=== PATIENT | female | born 1940 | race Caucasian/White ===

== ENCOUNTER 2023-08-12 12:58 | Inpatient (IN) | payer OTHER, SELFPAY ==
[2023-08-12] VITALS (9 sets, daily range): BP systolic 90–148; BP diastolic 52–75; BMI 31.0; BMI 29.8
--- NOTE | 2023-08-12 10:08 | ED.GENMED ---
History of Present Illness
<Toshia Conte MD - Last Filed: 08/12/23 10:09>
General
Chief Complaint: Weakness
Time Seen by Provider: 08/12/23 09:34
Travel History
Have you had any contact with someone who has COVID-19?: Unable to Answer
Do you have any symptoms of coronavirus? Fever > 100 degrees, chills, cough, shortness of breath, sore throat, loss of taste or smell, muscle aches, or headache?: Unable to Answer
<Neisha Cuello PA-C - Last Filed: 08/12/23 17:15>
General
Source: patient and ambulance crew
Exam Limitations: dementia
Nursing documentation reviewed up to this point in time: agreed with
History of Present Illness
History of Present Illness:
pt is a 83 y/o F with h/o alzheimers oriented to persona nd sometimes place at baseline, HTN, HLD, NIDDM, neuropathy
here via ems - but unclear who called and why
pt apparently lives with her who also has dementia; they ahve a patch driller who comes during the day to help. i spoke with her this morning after pt arrived via ems but they were unsure who called 911 and what for. the patient apparently was
in a chair and itw as called in as a lift assist but when they got there, neither the patient nor the could expalin why they were called or what happened and the patient seemed weak so they transported.
ems apparently called the grandson who then called the braulio's daughter who is traveling back from [place] currently. she then called the caregiver to go over to be with the . When I called the patient's 's line with the caregiver
answered and she was able to tell me that when she got there the was asking where his was and had no recollection of what happened today. It is unclear if maybe the patient fell. Previously she had been on Eliquis for DVT but when the
caregiver read me the list of medication she was no longer on that. She also was not on metformin or metoprolol which she has been on in the past. The caregiver says that the patient does not like to take her medications as it is.
Yesterday when the caregiver was with her patient was complaining that both of her feet hurt and was not really walking as usual. She has not had any known change in mental status, fever, vomiting. Patient is not aware of why she is here today but
is aware she is in the hospital. She has no complaints at the moment.
med list:
gabapentin 300 mg bid
donepezil hcl 10 mg hs
sertraline hcl 50 mg am
simvastatin 40 mg hs
Past History
<Toshia Conte MD - Last Filed: 08/12/23 10:09>
Past History
ED Past Medical History: Cancer, Hypercholesterolemia and NIDDM
ED Past Surgical History: Appendectomy, Gynecological (Hysterectomy), Orthopedic and Other (Whipple)
Social History
Living: longterm
<Neisha Cuello PA-C - Last Filed: 08/12/23 17:15>
Social History
Living: with family
<Neisha Cuello PA-C - Last Filed: 08/12/23 17:15>
Review of Systems
Allergies reviewed?: Yes
Unable to obtain full review of systems at this time due to: dementia
<Neisha Cuello PA-C - Last Filed: 08/12/23 17:15>
Physical Exam
Physical Exam:
GENERAL: Alert , in no apparent distress
head:b no intjuries
EYE: pupils equal and reactive , pale conjucntiva
NECK: Supple
ENT: o/p clr, mmm.
CARDIAC: irregularly irregular, afib with RVR; mild pitting symmetric edema b/l LE
LUNGS: Clear breath sounds bilaterally, no acute respiratory distress, no wheezes/rales/rhonchi
ABDOMEN: Soft, without focal tenderness, no r/g, no cvat, normal bowel sounds
NEUROLOGICAL: Alert and oriented x 2, no focal neuro deficits, seems generally weak, cannot pull herself up
SKIN: Warm and dry, skin intact.
MUSCULOSKELETAL: No edema, well perfused. neg luis daniel's sign
PSYCH: Normal and appropriate interaction.
Course
<Toshia Conet MD - Last Filed: 08/12/23 10:09>
Orders/Labs/Results
Orders:
Orders
08/12/23 09:57
EKG [Electrocardiogram (*1)] Urgent
Reason for Study: Chest Pain
EKG- Treatment ONCE
08/12/23 10:06
CT Head W/o Iv Contrast Urgent
Comment:
Reason For Exam: confusion, afib
08/12/23 10:07
CR Chest - 2 Views Urgent
Comment:
Reason For Exam: afib
08/12/23 10:24
Type+Screen Urgent
COVID-19 Antigen Urgent
Source: Nasal Swab
CPK [Creatine Phosphokinase] Urgent
Complete Blood Count/With Diff Urgent
Comprehensive Metabolic Panel Urgent
Magnesium Urgent
PTT Urgent
Prothrombin Time Urgent
TSH Reflex To Free T4 Urgent
Troponin I Urgent
Influenza A+B Rapid Molecular Urgent
SINDHU Source: Nasal Swab
Specimen Description:
08/12/23 11:29
Heparin 4,000 units IV NOW STA
08/12/23 11:30
Heparin 53165 Units/250 ml 25,000 units in 250 ml IV PER PROTOCOL
Weight to be used for heparin protocol in kilograms (kg):: 79.4
Protocol:: Cardiac Tx/Acute Coronary
PTT Goal Range to be used:: PTT 73 to 111 seconds
Order type:: Initial
INITIAL Infusion Dose (UNITS/KG/hr) & then follow protocol:: 12 units/kg/hr
Infusion Dose in UNITS/hr & then follow protocol (UNITS/hr):: 950
INFUSION RATE in mL/hr & then follow protocol (mL/hr):: 9.5
PTT less than or equal to 64 seconds:: Increase rate by 200 units/hr (+ 2 mL/hr)
PTT 64.1 to 72.9 seconds:: Increase rate by 100 units/hr (+ 1 mL/hr)
PTT 73 to 111 seconds:: Target Range. No change in rate.
PTT 111.1 to 130.9 seconds:: Decrease rate by 100 units/hr (- 1 mL/hr)
PTT 131 to 199.9 seconds:: HOLD for 1 hr. Then decrease rate by 200 units/hr (- 2 mL/hr)
PTT greater than or equal to 200 seconds:: HOLD for 2 hrs & Notify Provider. Then decrease by 200 units/hr (-
2 mL/hr)
Lab follow-up:: Each change, PTT q6h until 2 consecutive are therapeutic. Then PTT
daily.
08/12/23 11:31
CT Chest Pe Study Urgent
Comment:
Reason For Exam: new onset afib with rvr, + trop, h/o dvt
08/12/23 11:53
Urinalysis Reflex To Culture Urgent
Date Specimen was Collected: 08/12/23
Time Specimen was Collected: 10:38
Urine Microscopic Reflex Cult Urgent
Urine Culture Urgent
SINDHU Source: U
Specimen Description:
Date Specimen was Collected: 08/12/23
Time Specimen was Collected: 10:38
08/12/23 12:30
Admit/Transfer Patient As Directed
Co-Sign Provider:
Level of Care: Inpatient admission
Assign to:: Telemetry
Physician / Group: Leonard
Diagnosis: A-fib, Elevated Trop
Reason for Telemetry: Arrhythmia
Date to Stop Telemetry: 08/15/23
Time to Stop Telemetry: 11:00
Reason for Hospitalization: cardiology consult, a-fib management, elevated trop
Expected length of stay greater than two midnights?: Yes
ELOS- Estimated Length of Stay in days: 3
I certify the patient meets the requirements for IP care: Yes
08/12/23 12:42
Code Status As Directed
Resuscitation Status: Do not resuscitate
Reached after discussion with pt or family/Healthcare POA: Yes
DNR Bracelet Application ONCE
08/12/23 Dinner
2000 calorie (17 carb) Diabetic
At Your Request: Limited Participation
Diabetic Diet: Sodium, 2 Gram
08/12/23 15:32
Acetaminophen [Tylenol] 650 mg PO Q4HPRN PRN
Dextrose 50%-Water [Dextrose 50% Syringe] 12.5 grams IV [id number] PRN
Glucagon [GlucaGen] 1 mg IM PRN PRN
08/12/23 15:32
Echo 2D MMode Color/Doppler Routine
Reason for Study: afib
Cardiology Consult: George Orta
CARDIOLOGY CONSULT Routine
Consulting Provider: George Orta
Was physician already notified: Yes
Activity As Directed
Activity Level: Out of Bed- Chair
Bedside Glucose Monitoring As Directed
Frequency: AC&HS
Comment: Change to q6h if pt on TPN, tube feeding or not eating
I&O [Intake/ Output] As Directed
Frequency: q12h
Vital Signs As Directed
Frequency: Per unit guidelines
Weight As Directed
Frequency: Daily
Ot Eval And Treat Routine
Pt Eval And Treat Routine
Activity Level: Out of Bed-Early Mobility
08/12/23 16:30
Insulin Aspart Corrective Low [Novolog Flexpen-Low Resistance] See Protocol SC AC
08/12/23 20:00
Gabapentin [Neurontin] 300 mg PO BID
08/12/23 22:00
Donepezil HCl [Aricept] 10 mg PO HS
08/13/23 06:00
Basic Metabolic Panel IN AM
Complete Blood Count/No Diff IN AM
Creatine Phosphokinase IN AM
Glycohemoglobin (HgbA1c) IN AM
Magnesium IN AM
08/13/23 08:00
Pantoprazole [Protonix] 40 mg PO DAILY
Sertraline HCl [Zoloft] 100 mg PO DAILY
08/13/23 12:00
Ferrous Sulfate [Feosol] 325 mg PO NOON
08/15/23 11:00
DC Protocol for Telemetry ONCE
Abnormal Lab Results
08/12/23 08/12/23
10: 11:53
WBC 15.1 H 10^3/uL
(4.8-10.8)
RBC 4.13 L 10^6/uL
(4.20-5.40)
Hgb 11.1 L g/dL
(12.0-16.0)
Hct 34.2 L %
(37.0-47.0)
MCH 26.9 L pg
(27.0-31.0)
MCHC 32.5 L g/dL
(33.0-37.0)
Abs Immat Gran (auto) 0.1 H 10^3/uL
(0-0.05)
Absolute Neuts (auto) 13.3 H 10^3/uL
(1.4-6.5)
Absolute Lymphs (auto) 0.9 L 10^3/uL
(1.2-3.4)
Absolute Monos (auto) 0.7 H 10^3/uL
(0.1-0.6)
Immature Gran % 0.6 H %
(0-0.5)
Neutrophils % 88.4 H %
(42.2-75.2)
Lymphocytes % 5.9 L %
(20.5-51.1)
PT 15.5 H Sec
(11.4-14.6)
APTT 35.2 H Sec
(23.4-35.0)
Sodium 131 L mmol/L
(135-145)
BUN 31 H mg/dl
(7-17)
Creatinine 1.2 H mg/dL
(0.6-1.0)
Glucose 149 H mg/dl
(70-99)
AST 61 H U/L
(14-36)
Creatine Kinase 2282 H U/L
(30-135)
Troponin I 3.350 H* ng/ml
Urine Ketones Trace A
(Negative)
Ur Occult Blood Reflex 2+ A
(Negative)
Leukocyte Esterase Rfl 1+ A
(Negative)
Urine WBC (Reflex) 30-40 A /HPF
(0-5)
Urine Bacteria (Reflex) Many A
(Negative)
08/12/23 10:24
08/12/23 10:24
Vital Signs
Initial and Last Documented VS:
Initial Vital Signs
Temp Pulse Resp BP Pulse Ox
98.0 F 105 18 90/73 97
08/12/23 09:36 08/12/23 09:36 08/12/23 09:36 08/12/23 09:36 08/12/23 09:36
Last Documented Vital Signs
Temp Pulse Resp BP Pulse Ox
97.9 F 72 18 119/56 96
08/12/23 15:56 08/12/23 15:56 08/12/23 15:56 08/12/23 15:56 08/12/23 15:56
Kellylt;Neisha Cuello PA-C - Last Filed: 08/12/23 17:15>
Orders/Labs/Results
Orders:
Orders
08/12/23 09:57
EKG [Electrocardiogram (*1)] Urgent
Reason for Study: Chest Pain
EKG- Treatment ONCE
08/12/23 10:06
CT Head W/o Iv Contrast Urgent
Comment:
Reason For Exam: confusion, afib
08/12/23 10:07
CR Chest - 2 Views Urgent
Comment:
Reason For Exam: afib
08/12/23 10:24
Type+Screen Urgent
COVID-19 Antigen Urgent
Source: Nasal Swab
CPK [Creatine Phosphokinase] Urgent
Complete Blood Count/With Diff Urgent
Comprehensive Metabolic Panel Urgent
Magnesium Urgent
PTT Urgent
Prothrombin Time Urgent
TSH Reflex To Free T4 Urgent
Troponin I Urgent
Influenza A+B Rapid Molecular Urgent
SINDHU Source: Nasal Swab
Specimen Description:
08/12/23 11:29
Heparin 4,000 units IV NOW STA
08/12/23 11:30
Heparin 53844 Units/250 ml 25,000 units in 250 ml IV PER PROTOCOL
Weight to be used for heparin protocol in kilograms (kg):: 79.4
Protocol:: Cardiac Tx/Acute Coronary
PTT Goal Range to be used:: PTT 73 to 111 seconds
Order type:: Initial
INITIAL Infusion Dose (UNITS/KG/hr) & then follow protocol:: 12 units/kg/hr
Infusion Dose in UNITS/hr & then follow protocol (UNITS/hr):: 950
INFUSION RATE in mL/hr & then follow protocol (mL/hr):: 9.5
PTT less than or equal to 64 seconds:: Increase rate by 200 units/hr (+ 2 mL/hr)
PTT 64.1 to 72.9 seconds:: Increase rate by 100 units/hr (+ 1 mL/hr)
PTT 73 to 111 seconds:: Target Range. No change in rate.
PTT 111.1 to 130.9 seconds:: Decrease rate by 100 units/hr (- 1 mL/hr)
PTT 131 to 199.9 seconds:: HOLD for 1 hr. Then decrease rate by 200 units/hr (- 2 mL/hr)
PTT greater than or equal to 200 seconds:: HOLD for 2 hrs & Notify Provider. Then decrease by 200 units/hr (-
2 mL/hr)
Lab follow-up:: Each change, PTT q6h until 2 consecutive are therapeutic. Then PTT
daily.
08/12/23 11:31
CT Chest Pe Study Urgent
Comment:
Reason For Exam: new onset afib with rvr, + trop, h/o dvt
08/12/23 11:53
Urinalysis Reflex To Culture Urgent
Date Specimen was Collected: 08/12/23
Time Specimen was Collected: 10:38
Urine Microscopic Reflex Cult Urgent
Urine Culture Urgent
SINDHU Source: U
Specimen Description:
Date Specimen was Collected: 08/12/23
Time Specimen was Collected: 10:38
08/12/23 12:30
Admit/Transfer Patient As Directed
Co-Sign Provider:
Level of Care: Inpatient admission
Assign to:: Telemetry
Physician / Group: Leonard
Diagnosis: A-fib, Elevated Trop
Reason for Telemetry: Arrhythmia
Date to Stop Telemetry: 08/15/23
Time to Stop Telemetry: 11:00
Reason for Hospitalization: cardiology consult, a-fib management, elevated trop
Expected length of stay greater than two midnights?: Yes
ELOS- Estimated Length of Stay in days: 3
I certify the patient meets the requirements for IP care: Yes
08/12/23 12:42
Code Status As Directed
Resuscitation Status: Do not resuscitate
Reached after discussion with pt or family/Healthcare POA: Yes
DNR Bracelet Application ONCE
08/12/23 Dinner
2000 calorie (17 carb) Diabetic
At Your Request: Limited Participation
Diabetic Diet: Sodium, 2 Gram
08/12/23 15:32
Acetaminophen [Tylenol] 650 mg PO Q4HPRN PRN
Dextrose 50%-Water [Dextrose 50% Syringe] 12.5 grams IV [id number] PRN
Glucagon [GlucaGen] 1 mg IM PRN PRN
08/12/23 15:32
Echo 2D MMode Color/Doppler Routine
Reason for Study: afib
Cardiology Consult: George Orta
CARDIOLOGY CONSULT Routine
Consulting Provider: George Orta
Was physician already notified: Yes
Activity As Directed
Activity Level: Out of Bed- Chair
Bedside Glucose Monitoring As Directed
Frequency: AC&HS
Comment: Change to q6h if pt on TPN, tube feeding or not eating
I&O [Intake/ Output] As Directed
Frequency: q12h
Vital Signs As Directed
Frequency: Per unit guidelines
Weight As Directed
Frequency: Daily
Ot Eval And Treat Routine
Pt Eval And Treat Routine
Activity Level: Out of Bed-Early Mobility
08/12/23 16:30
Insulin Aspart Corrective Low [Novolog Flexpen-Low Resistance] See Protocol SC AC
08/12/23 20:00
Gabapentin [Neurontin] 300 mg PO BID
08/12/23 22:00
Donepezil HCl [Aricept] 10 mg PO HS
08/13/23 06:00
Basic Metabolic Panel IN AM
Complete Blood Count/No Diff IN AM
Creatine Phosphokinase IN AM
Glycohemoglobin (HgbA1c) IN AM
Magnesium IN AM
08/13/23 08:00
Pantoprazole [Protonix] 40 mg PO DAILY
Sertraline HCl [Zoloft] 100 mg PO DAILY
08/13/23 12:00
Ferrous Sulfate [Feosol] 325 mg PO NOON
08/15/23 11:00
DC Protocol for Telemetry ONCE
Abnormal Lab Results
08/12/23 08/12/23
10:24 11:53
WBC 15.1 H 10^3/uL
(4.8-10.8)
RBC 4.13 L 10^6/uL
(4.20-5.40)
Hgb 11.1 L g/dL
(12.0-16.0)
Hct 34.2 L %
(37.0-47.0)
MCH 26.9 L pg
(27.0-31.0)
MCHC 32.5 L g/dL
(33.0-37.0)
Abs Immat Gran (auto) 0.1 H 10^3/uL
(0-0.05)
Absolute Neuts (auto) 13.3 H 10^3/uL
(1.4-6.5)
Absolute Lymphs (auto) 0.9 L 10^3/uL
(1.2-3.4)
Absolute Monos (auto) 0.7 H 10^3/uL
(0.1-0.6)
Immature Gran % 0.6 H %
(0-0.5)
Neutrophils % 88.4 H %
(42.2-75.2)
Lymphocytes % 5.9 L %
(20.5-51.1)
PT 15.5 H Sec
(11.4-14.6)
APTT 35.2 H Sec
(23.4-35.0)
Sodium 131 L mmol/L
(135-145)
BUN 31 H mg/dl
(7-17)
Creatinine 1.2 H mg/dL
(0.6-1.0)
Glucose 149 H mg/dl
(70-99)
AST 61 H U/L
(14-36)
Creatine Kinase 2282 H U/L
(30-135)
Troponin I 3.350 H* ng/ml
Urine Ketones Trace A
(Negative)
Ur Occult Blood Reflex 2+ A
(Negative)
Leukocyte Esterase Rfl 1+ A
(Negative)
Urine WBC (Reflex) 30-40 A /HPF
(0-5)
Urine Bacteria (Reflex) Many A
(Negative)
08/12/23 10:24
08/12/23 10:24
Vital Signs
Initial and Last Documented VS:
Initial Vital Signs
Temp Pulse Resp BP Pulse Ox
98.0 F 105 18 90/73 97
08/12/23 09:36 08/12/23 09:36 08/12/23 09:36 08/12/23 09:36 08/12/23 09:36
Last Documented Vital Signs
Temp Pulse Resp BP Pulse Ox
97.9 F 72 18 119/56 96
08/12/23 15:56 08/12/23 15:56 08/12/23 15:56 08/12/23 15:56 08/12/23 15:56
<Neisha Cuello PA-C - Last Filed: 08/12/23 17:15>
MDM/Problems Addressed
Differential Diagnosis Includes:
uti, pneumonia, afib with RVR, weakness;
MDM/Problems Addressed:
83 y/o F from home, h/o alzheimers, former dvt was anticoagulated unclear when she came off; lives with who has dementia; no one knows who called 911 or why; pt was found awake and at her baseline in a chair and was maybe thought by ems to
be lift assist but she was generally weak so they brought her; found to be in afib with rvr with rate low 100s, bp 100s, awake and alert, no distress, lungs clear, mild edema in legs but no crackles; ekg nonischemic but trop is 3, she has no pain;
given her h/o dvt will CT PE which did not show PE; heparinize for ACS
pt's daughter was contacted and made aware of dx
she also confirmed pt is DNR.
<Neisha Cuello PA-C - Last Filed: 08/12/23 17:15>
*Critical Care Note
Total Time (30-74mins, 75-104mins- exclusive of procedures): Not Applicable
ED Attending Note
<Toshia Conte MD - Last Filed: 08/12/23 10:09>
ED Attending Note
Patient seen and examined by attending physician: Yes
I performed the substantive portion of visit, reviewed & personally made and approve the management plan that is documented in note by myself or SERINA.: Yes
ED Attending Note:
Patient arrives nontoxic-appearing and comfortable. Her head appears atraumatic. Her heart sounds irregular. Lungs are clear. I cannot see any prior history of A-fib. Patient would likely be anticoagulated and admitted for new onset A-fib.
Before starting anticoagulation, we will check her coags, hemoglobin and scan her head given she had a recent fall. Patient's pelvis and hips are nontender.
-
Portions of this chart may have been created with voice recognition software.� Occasional wrong word or��sound alike� substitutions may have occurred due to the inherent limitations of voice recognition software.
Discharge Plan
Departure
Patient Disposition: Admit
Date of Disposition: 08/12/23
Time of Disposition: 11:30
Admit to: Telemetry
Presentation/result/management discussed w/ accepting MD/DO: Hospitalist
Condition: Fair
Covid-19: Not Applicable
Discharge Problem:
Non-ST elevation [place] (NSTEMI), Atrial fibrillation with rapid ventricular response
Interventions
Interventions:
*Risk Screen - Suicide Last Done: 08/12/23 12:38
*General Assessment Last Done: 08/12/23 12:38
*Neglect/Abuse Screening Last Done: 08/12/23 12:38
ED- Fall Risk Assessment Last Done: 08/12/23 12:38
*ED COVID-19 Vaccine History Last Done: 08/12/23 12:38
*Nursing Disposition Last Done: 08/12/23 15:29
ED- Cardiac Assessment Last Done: 08/12/23 14:00
ED- Neurological Assessment Last Done: 08/12/23 12:38
ED- Pulmonary Assessment Last Done: 08/12/23 12:38
Discharge Date and Time
Discharge Date/Time: 08/12/23 15:00
[2023-08-12 10:38] LABS: % Basophils 0.2 % (0-2); % Immature Granulocytes 0.6 % (0-0.5); % Lymphocytes 5.9 % (20.5-51.1); % Monocytes 4.9 % (1.7-9.3); % Neutrophils 88.4 % (42.2-75.2); Absolute Immature Granulocytes 0.1 10^3/uL (0-0.05); Absolute Lymphocytes 0.9 10^3/uL (1.2-3.4); Absolute Monocytes 0.7 10^3/uL (0.1-0.6); Absolute Neutrophils 13.3 10^3/uL (1.4-6.5); Hematocrit 34.2 % (37.0-47.0); Hemoglobin 11.1 g/dL (12.0-16.0); Mean Corp Hgb Conc. 32.5 g/dL (33.0-37.0); Mean Corpuscular Hgb 26.9 pg (27.0-31.0); Mean Corpuscular Volume 82.8 fL (81.0-99.0); Mean Platelet Volume 9.5 fL (7.4-10.4); Nucleated Red Blood Cells % 0 %; Platelet Count 271 10^3/uL (130-400); Red Blood Cell Count 4.13 10^6/uL (4.20-5.40); Red Cell Dist. Width 14.4 % (11.5-14.5); White Blood Cell Count 15.1 10^3/uL (4.8-10.8)
[2023-08-12 10:49] LABS: INR 1.25; PT 15.5 Sec (11.4-14.6)
[2023-08-12 10:50] LABS: APTT 35.2 Sec (23.4-35.0)
[2023-08-12 10:52] LABS: ALT (SGPT) 11 U/L (0-35); AST (SGOT) 61 U/L (14-36); Albumin 3.5 g/dl (3.5-5.0); Alkaline Phosphatase 97 U/L (38-126); Blood Urea Nitrogen 31 mg/dl (7-17); COVID-19 Antigen Negative (Negative); Calcium 8.6 mg/dl (8.4-10.2); Carbon Dioxide 22 mmol/L (22-30); Chloride 103 mmol/L (98-107); Estimated Creatinine Clearance 37 ml/min; Glucose 149 mg/dl (70-99); Magnesium 1.6 mg/dl (1.6-2.3); Potassium 4.5 mmol/L (3.5-5.1); Sodium 131 mmol/L (135-145); Total Bilirubin 1.1 mg/dl (0.2-1.3); Total Protein 6.3 g/dl (6.3-8.2); eGFR 45.48
[2023-08-12 11:01] LABS: Creatine Phosphokinase 2282 U/L (30-135)
[2023-08-12 11:21] LABS: TSH Reflex To Free T4 2.01 uIU/ml (0.47-4.68)
--- NOTE | 2023-08-12 12:19 | PHANOTE ---
med rec note- called [facility] due to patient not answering question properly. saw in ecw on 08/02/23 that [facility] called patient pcp to discuss current medication list, [facility] does prepack everything for all there patient,
[2023-08-12 12:41] LABS: Urine Albumin Trace (Neg - Trace); Urine Bilirubin Negative (Negative); Urine Character Clear (Clear); Urine Color Yellow; Urine Glucose Negative (Negative); Urine Ketone Trace (Negative); Urine Leukocyte 1+ (Negative); Urine Nitrite Negative (Negative); Urine Occult Blood 2+ (Negative); Urine Urobilinogen Negative (Neg - 1+)
--- NOTE | 2023-08-12 12:47 | HPS.HSE ---
Addendum entered and electronically signed by Shanice Valle MD 08/12/23 14:59:
I saw and examined the patient.
The WOLF HUNTER's note was reviewed and I agree with the note.
Comment:
Ms. Veronica Logan is a 83 yo woman with hx DM, CKD, dementia who was brought to the ER for weakness; remaining story unclear. Patient is a poor historian given dementia. Triage vitals signficiant for P 105, BP 90/73, EKG showing afib with RVR.
Labs with WBC 15.1, Hg 11.1, PLT 271, Na 131, K+ 4.5, BUN 31, Cr 1.2 (baseline), CK 2282, Trop 3.350.
On exam patient is in on distress, tachycardic, resp status stable. She denies chest pain.
Afib with RVR new diagnosis likely causing weakness, elevated Trop. She is on eliquis outpatient for DVT, heparin gtt started for now while trending Troponin. TTE to be obtained. IVF overnight and hold statin with elevated CK.
Original Note:
Family Physician
-
Family Physician: NO INTERVIEW UNKNOWN
Chief Complaint
-
Weakness
History of Present Illness
Patient is a 83-year-old female past medical history of diabetes, CKD and dementia who was brought to the emergency department via EMS for weakness. It is unclear who called 911, and EMS is unaware of the reason for the 911 call. EMS found patient
in her chair was noted be generally weak with mildly low blood pressure, and atrial fibrillation on heart monitor. Due to patient's dementia she is unable to provide any reliable history, but denies any complaints at the present time.
Medical History
Past Medical History
Past Medical History: Reports Other
Additional Past Medical History:
Essential Hypertension
Diabetes Mellitus, Type II
Diabetic Neuropathy
CKD Stage III
Depression
Alzheimer's Dementia
GERD
DVT
Past Surgical History: Reports Other
Additional Past Surgical History:
Appendectomy
Hysterectomy
Cholecystectomy
Whipple Procedure
Bilateral Knee Replacements
Social History
Tobacco: Non-smoker
Living: With Family
Family History
Family History: Unable to Obtain
Allergies / Home Medications
Allergies reflects when Allergies were last updated in [employer].
Home Medications with original date entered in [employer]
Allergy/Medication List:
Allergies
Allergy/AdvReac Type Severity Reaction Status Date / Time
codeine Allergy nausea and Verified 06/16/21 10:56
vomiting/DIARRHEA
diphenhydramine Allergy shakes and Verified 06/16/21 10:56
tremors/SWEATING
Home Medications
hydrochlorothiazide 12.5 mg tablet 12.5 mg PO DAILY Blood pressure 06/16/21
sertraline 100 mg tablet 100 mg PO DAILY Depression 06/16/21
simvastatin 40 mg tablet 40 mg PO QPM High cholesterol 06/16/21
ferrous sulfate 325 mg (65 mg iron) tablet (FeroSul) 325 mg PO NOON Supplement #30 tabs 06/21/21
metoprolol succinate 25 mg tablet,extended release 24 hr 12.5 mg PO DAILY ##30 06/21/21
pantoprazole 40 mg tablet,delayed release 40 mg PO DAILY #30 tabs 06/21/21
apixaban 5 mg tablet (Eliquis) 5 mg PO BID 08/12/23
donepezil 10 mg tablet 10 mg PO HS 08/12/23
gabapentin 300 mg capsule 300 mg PO BID Pain 08/12/23
Review of Systems
-
Unable to obtain full review of systems at this time due to: Dementia
Physical Exam
Vital Signs
Vital Signs
Temp Pulse Resp BP Pulse Ox
98.0 F 111 16 106/52 98
08/12/23 09:36 08/12/23 12:30 08/12/23 12:30 08/12/23 12:08 08/12/23 12:38
Physical Exam
General: Comfortable and Conversant
HEENT: Anicteric and Moist mucous membranes
Respiratory: Rales (Right base, but otherwise clear) and Non Labored Respirations
Cardiac: S1/S2, Irregular Rhythm and Tachycardia (Slightly)
GI: Soft and Non Tender
Rectal: Deferred by Provider
Musculoskeletal: No Clubbing, No Cyanosis and No Edema
Skin: Warm and Dry
Neuro: Awake, Alert, Oriented (Self only) and Nonfocal/grossly intact (Generally weak)
Laboratory Results
-
08/12/23 10:24
08/12/23 10:24
Laboratory Results
PT 15.5 Sec (11.4-14.6) H 08/12/23 10:24
INR 1.25 08/12/23 10:24
APTT 35.2 Sec (23.4-35.0) H 08/12/23 10:24
Total Bilirubin 1.1 mg/dl (0.2-1.3) 08/12/23 10:24
AST 61 U/L (14-36) H 08/12/23 10:24
ALT 11 U/L (0-35) 08/12/23 10:24
Alkaline Phosphatase 97 U/L (38-126) 08/12/23 10:24
Troponin I 3.350 ng/ml H* 08/12/23 10:24
Data Reviewed
-
Lab Data: Labs Reviewed by me
Impression/Plan
-
Atrial Fibrillation, appears to be new diagnosis for the patient
-Consult cardiology
-Increase Metoprolol 25mg BID with first dose now
-Continue heparin drip
Elevated Troponin, suspect Non-Ischemic Myocardial Injury
-Consult Cardiology
-Continue to trend
-Check Echocardiogram
Rhabdomyolysis
-Continue IV fluids
-Continue to trend CPK level
-Hold simvastatin
Essential Hypertension
-Stop HCTZ
-Monitor BP closely while on increased dose of Metoprolol
Diabetes Mellitus, Type II
-Check HgbA1c
-Monitor sugars and continue coverage insulin
Diabetic Neuropathy
-Continue gabapentin
CKD Stage III
-Monitor creatinine closely
Depression
-Continue sertraline
Alzheimer's Dementia
-Continue donepezil
-Monitor for mood/behavior changes during hospitalization
GERD
-Continue Protonix
DVT proph: Heparin Drip
Code Status: DNR
[2023-08-12 12:52] LABS: Urine Bacteria Many (Negative); Urine Red Blood Cell 0-2 /HPF (0-2); Urine White Cell 30-40 /HPF (0-5)
[2023-08-12 12:53] LABS: Urine Squamous Cell 0-2 /LPF (Few)
[2023-08-12] MEDS: TOPROL XL 25 MG PO ×2 (14:00→20:07)
[2023-08-12] MEDS: HEPARIN 4000 UNITS IV (14:01)
--- NOTE | 2023-08-12 14:17 | CON.CAR ---
Addendum entered and electronically signed by George Orta MD 08/12/23 15:07:
Correction: dates below should read 08/12/23 instead of 08/11/22.
Original Note:
Consultation
Consultation Request
Date/Time Consultation Requested: 08/11/22, 1240 pm
Date/Time Consultation Performed: 08/11/22, 1pm
Requesting Provider: Leonard
Performing Provider: You
Reason for Consultation: new A fib
Medical History
-
Chief Complaint: weakness
History of Present Illness:
83 yo female with PMH of HTN, hyperlipidemia, DM, DVT on eliquis, Alzheimer's admitted with weakness.
We are consulted for new A fib with RVR, and elevated troponin.
Patient offers no complaints. She does appear to have advanced dementia.
Past Medical History
Past Medical History: HTN, Hypercholesterolemia, NIDDM and Valvular Disease (mild , mild MS)
Past Surgical History: Appendectomy, Cholecystectomy and Gynecological (hysterectomy)
Social History
Tobacco: Non-Smoker
Family History
Family History: Early CAD (none)
Allergies / Home Medications
Allergy/AdvReac Type Severity Reaction Status Date / Time
codeine Allergy nausea and Verified 06/16/21 10:56
vomiting/DIARRHEA
diphenhydramine Allergy shakes and Verified 06/16/21 10:56
tremors/SWEATING
Medication Instructions Recorded Confirmed Type
hydrochlorothiazide 12.5 mg tablet 12.5 mg PO DAILY Blood pressure 06/16/21 08/12/23 History
sertraline 100 mg tablet 100 mg PO DAILY Depression 06/16/21 08/12/23 History
simvastatin 40 mg tablet 40 mg PO QPM High cholesterol 06/16/21 08/12/23 History
ferrous sulfate 325 mg (65 mg 325 mg PO NOON Supplement #30 tabs 06/21/21 08/12/23 Rx
iron) tablet (FeroSul)
metoprolol succinate 25 mg 12.5 mg PO DAILY ##30 06/21/21 08/12/23 Rx
tablet,extended release 24 hr
pantoprazole 40 mg tablet,delayed 40 mg PO DAILY #30 tabs 06/21/21 08/12/23 Rx
release
apixaban 5 mg tablet (Eliquis) 5 mg PO BID 08/12/23 08/12/23 History
donepezil 10 mg tablet 10 mg PO HS 08/12/23 08/12/23 History
gabapentin 300 mg capsule 300 mg PO BID Pain 08/12/23 08/12/23 History
Review of Systems
-
History Source: Patient and Transfer Record
All other systems: Negative unless noted
Physical Exam
Vital Signs
Temp Pulse Resp BP Pulse Ox
98.0 F 78 16 112/63 98
08/12/23 09:36 08/12/23 14:00 08/12/23 12:30 08/12/23 14:00 08/12/23 12:38
Lab Results
08/12/23 10:24
08/12/23 10:24
Troponin I 3.350 ng/ml H* 08/12/23 10:24
Physical Exam
General: Well Developed, Well Nourished and No Apparent Distress
HEENT: Normocephalic and Anicteric
Respiratory: Clear, Wheezes (none) and Non Labored Respirations
Cardiac: S1/S2 (normal), Irregular Rhythm, Murmur (II/ systolic at RUSB) and Peripheral Edema (none)
Breast: Deferred by me
GI: Soft and Non Tender
Rectal: Deferred by Provider
Musculoskeletal: No Clubbing, No Cyanosis and No Edema
Skin: Warm and Dry
Neuro: Awake
Psych: Calm
Impression / Plan
-
83 yo female with PMH of HTN, hyperlipidemia, DM, DVT on eliquis, Alzheimer's admitted with weakness.
We are consulted for new A fib with RVR, and elevated troponin.
# New Afib with RVR
-rates mildly elevated: increase Toprol XL to 25mg bid
-CHADS2-VASC = 5. She is on eliquis 5mg bid as outpatient for DVT.
-currently on heparin drip while investigating etiology for her presentation. transition back to eliquis before discharge.
# Elevated troponin
-no CP or ST changes on EKG
-currently 3.35: trend to peak
-does not appear to be ACS: Type II [place] vs acute non-ischemic myocardial injury in setting of A fib with RVR
-echo this admission
#HTN
-monitor with increased Toprol XL
-takes HCTZ 12.5mg at home as well
#Hyperlipidemia
-in setting of DM
-cont statin
Data Reviewed
-
EKG: Tracing Personally Visualized and interpreted (A fib 118, no ST changes) and Discussed with Physician
Medical Tests (Nuc Med, Echo etc): Report Reviewed by me (echo 05/2021: EF 65-70%, mild , mild MS, nl RV) and Discussed with Physician
Labs: Labs Reviewed by me and Discussed with Physician
Old Records: Reviewed
[2023-08-12] MEDS: NSS 1000 IV (15:58)
[2023-08-12] MEDS: HEPARIN 25000 UNITS/250 ML IV (15:59)
[2023-08-12 16:22] LABS: Glucose - Point of Care 134 mg/dl (70-99)
[2023-08-12] MEDS: NOVOLOG FLEXPEN-LOW RESISTANCE SC (16:51)
[2023-08-12] MEDS: MAGNESIUM SULFATE 100 IV (20:06)
[2023-08-12] MEDS: NEURONTIN 300 MG PO (20:07)
[2023-08-12] MEDS: ARICEPT 10 MG PO (21:15)
[2023-08-12] MEDS: DESENEX/MITRAZOL/ZEASORB 1 APPLIC TOPICAL (21:37)
[2023-08-12 21:41] LABS: Glucose - Point of Care 111 mg/dl (70-99)
[2023-08-12 22:36] LABS: APTT 52.1 Sec (23.4-35.0)
--- NOTE | 2023-08-12 22:47 | PTCARENOTE ---
Patient trop went up from 5.890 to 6.910. Denies chest pain or SOB. Vitals are 148/63 BP, HR 74, Temp98.2, resp 20, pulse ox 95% room air. Patient ordered another trop to be drawn at 0230. On dawit ENDOSCOPY SPECIALTY TECHNICIAN made aware with no new orders at this time.
[2023-08-13] VITALS (7 sets, daily range): BP systolic 94–119; BP diastolic 44–56; PULSE 63; BMI 28.6
[2023-08-13 05:34] LABS: Hematocrit 30.8 % (37.0-47.0); Hemoglobin 9.6 g/dL (12.0-16.0); Mean Corp Hgb Conc. 31.2 g/dL (33.0-37.0); Mean Corpuscular Hgb 26.5 pg (27.0-31.0); Mean Corpuscular Volume 85.1 fL (81.0-99.0); Mean Platelet Volume 9.7 fL (7.4-10.4); Platelet Count 282 10^3/uL (130-400); Red Blood Cell Count 3.62 10^6/uL (4.20-5.40); Red Cell Dist. Width 14.6 % (11.5-14.5); White Blood Cell Count 20.8 10^3/uL (4.8-10.8)
[2023-08-13 05:45] LABS: APTT 49.2 Sec (23.4-35.0)
[2023-08-13 06:18] LABS: Blood Urea Nitrogen 35 mg/dl (7-17); Calcium 8.4 mg/dl (8.4-10.2); Carbon Dioxide 16 mmol/L (22-30); Chloride 103 mmol/L (98-107); Creatine Phosphokinase 845 U/L (30-135); Estimated Creatinine Clearance 31 ml/min; Glucose 133 mg/dl (70-99); Potassium 4.4 mmol/L (3.5-5.1); Sodium 131 mmol/L (135-145)
[2023-08-13 08:15] LABS: Glucose - Point of Care 134 mg/dl (70-99)
[2023-08-13] MEDS: NEURONTIN 300 MG PO ×2 (08:41→19:48)
[2023-08-13] MEDS: NOVOLOG FLEXPEN-LOW RESISTANCE SC (08:41)
[2023-08-13] MEDS: ZOLOFT 100 MG PO (08:41)
[2023-08-13 08:42] LABS: Glycohemoglobin (HgbA1c) 7.4 % (4.0-5.6)
[2023-08-13] MEDS: PROTONIX 40 MG PO (08:42)
[2023-08-13] MEDS: TOPROL XL 25 MG PO ×2 (08:42→19:48)
[2023-08-13] MEDS: DESENEX/MITRAZOL/ZEASORB 1 APPLIC TOPICAL ×2 (08:42→19:48)
--- NOTE | 2023-08-13 10:05 | PTOTSP ---
ST Screening
Pt admitted for altered mental status. Pt with known hx of dementia and currently AAOx1. Admitted for afib. Pt with hx of GERD. Pt with CT Head with no acute process and CT Chest did not indicate any signs of PNA. Pt passed swallow screening and
denied any hx of swallowing concerns. Pt has remained afebrile; however, WBC increasing to 20,800 today. Of note, pt with multiple metabolic derangements including Na 131, BUN 35, creatinine 1.4, as well as abnormal urine and elevated troponin. No
acute concerns/needs for [facility] services identified at this time. Please consult if anything changes.
[2023-08-13 11:30] LABS: APTT 72.7 Sec (23.4-35.0)
--- NOTE | 2023-08-13 11:32 | W.PN.HOSP.TC ---
Addendum entered and electronically signed by Shanice Valle MD 08/13/23 14:17:
WBC up
UA with inflammation
will start IV Ceftriaxone while following up final culture
Original Note:
Today's Communication/Plan
-
heparin gtt
start asa
TTE tomorrow
Assessment / Plan
Assessment / Plan
Ms. Veronica Logan is a 83 yo woman with hx DM, CKD, dementia who was brought to the ER for weakness; remaining story unclear.� Patient is a poor historian given dementia.� Triage vitals signficiant for P 105, BP 90/73, EKG showing afib with RVR.�
Labs with WBC 15.1, Hg 11.1, PLT 271, Na 131, K+ 4.5, BUN 31, Cr 1.2 (baseline), CK 2282, Trop 3.350.�
Atrial Fibrillation, appears to be new diagnosis for the patient
-appreciate cardiology consult
-admitted to telemetry
-converted to sinus rhythm
-Increase Metoprolol 25mg BID with first dose now (on 12.5 at home)
-Continue heparin drip
-MHEFa2xyik score = 5
Elevated Troponin, suspect Non-Ischemic Myocardial Injury
-peaked at 6.9 - unclear if new ACS versus non-SD trop elevation related to RVR
-Check Echocardiogram
-appreciate cardiology
-heparin gtt
-asa
Hx DVT
-patient is on Eliquis BID at home for DVT; held while on IV heparin gtt
-per ER note - patient no longer taking eliquis although it is on her med list
Rhabdomyolysis
-CK better, stop fluids
-Hold simvastatin
Essential Hypertension
-Stop HCTZ
-Monitor BP closely while on increased dose of Metoprolol
Diabetes Mellitus, Type II
-Check HgbA1c
-Monitor sugars and continue coverage insulin
Diabetic Neuropathy
-Continue gabapentin
CKD Stage III
-Monitor creatinine closely
Depression
-Continue sertraline
Alzheimer's Dementia
-Continue donepezil
-Monitor for mood/behavior changes during hospitalization
GERD
-Continue Protonix
DVT proph: Heparin Drip
Code Status: DNR
Anticipated Discharge: 24 - 48 hours
Subjective/Interval History
-
Date of Service: August 13, 2023
denies chest pain or dizziness
Objective Data
-
Labs:
Laboratory Results
08/13/23 08/13/23 08/13/23
05:12 05:13 11:07
WBC 20.8 H
Hgb 9.6 L
Hct 30.8 L
Plt Count 282
APTT 49.2 H Pending
Sodium 131 L
Potassium 4.4
Chloride 103
Carbon Dioxide 16 L
BUN 35 H
Creatinine 1.4 H
Glucose 133 H
Calcium 8.4
Vital Signs:
Vital Signs
Temp Pulse Resp BP Pulse Ox
98.6 F 67 16 104/52 96
08/13/23 07:38 08/13/23 07:38 08/13/23 07:38 08/13/23 07:38 08/13/23 07:38
I&O
08/12/23 08/13/23 08/14/23
06:59 06:59 06:59
Intake Total 1158 / 1158
Balance 1158 / 1158
Review of Systems
-
History Source: Patient
All other systems: Reviewed and negative
Physical Exam
-
General: No Apparent Distress and Appears Chronically Ill
HEENT: PERRLA
Respiratory: Clear to Auscultation; Negative Wheezes
Cardiac: Regular Rhythm and S1/S2
GI: Soft and Nontender
Musculoskeletal: No Edema
Skin: Warm and Dry; Negative Rash
Neuro: Awake and Alert
Psych: Apparent Dementia
Data Reviewed
-
Diagnostic Radiology: Report Reviewed by me
Labs: Labs Reviewed by me
--- NOTE | 2023-08-13 11:40 | W.PN.CD ---
Today's Communication / Plan
-
back in sinus
continue Toprol XL 25mg bid
echo tomorrow
Impression / Plan
-
83 yo female with PMH of HTN, hyperlipidemia, DM, DVT on eliquis, Alzheimer's admitted with weakness.
We are consulted for new A fib with RVR, and elevated troponin.
# New Afib with RVR: paroxysmal, and back in NSR today
-increased Toprol XL to 25mg bid this admission
-CHADS2-VASC = 5. She is on eliquis 5mg bid as outpatient for DVT.
-currently on heparin drip while investigating etiology for her presentation. transition back to eliquis before discharge.
# Elevated troponin
-no CP or ST changes on EKG
-peak 6.9
-does not appear to be ACS: Type II [place] vs acute non-ischemic myocardial injury in setting of A fib with RVR
-echo tomorrow
# Heart murmur
-echo in AM
#HTN
-monitor with increased Toprol XL
-takes HCTZ 12.5mg at home as well: currently held with rising Cr
#Hyperlipidemia
-in setting of DM
-cont statin
Physical Exam
Vital Signs/Labs
Vital Signs
Temp Pulse Resp BP Pulse Ox
98.6 F 67 16 104/52 96
08/13/23 07:38 08/13/23 07:38 08/13/23 07:38 08/13/23 07:38 08/13/23 07:38
08/12/23 08/13/23 08/14/23
06:59 06:59 06:59
Actual Weight 73.255 kg
08/13/23 05:13
08/13/23 05:12
PT 15.5 Sec (11.4-14.6) H 08/12/23 10:24
INR 1.25 08/12/23 10:24
APTT 72.7 Sec (23.4-35.0) H 08/13/23 11:07
Magnesium 2.0 mg/dl (1.6-2.3) 08/13/23 05:12
LAB Results
08/12/23 08/12/23 08/12/23
10:24 14:07 22:03
Troponin I 3.350 H* 5.890 H* D 6.910 H*
08/13/23
05:13
Troponin I 4.710 H* D
Physical Exam
Constitutional: Comfortable
EENT: Moist mucous membranes
Cardiovascular: Rhythm & rate is regular, Pedal edema is absent, JVD pressure is normal and Systolic murmur present
Respiratory: Respiratory effort normal and Lungs clear to auscul.
GI: Soft and Distention absent
Data Reviewed
-
Date of Service: August 13, 2023
EKG: Other (Tele: NSR 70s)
Labs: Labs Reviewed by me
[2023-08-13 11:47] LABS: Glucose - Point of Care 180 mg/dl (70-99)
[2023-08-13] MEDS: NOVOLOG FLEXPEN-LOW RESISTANCE 1 UNITS SC ×2 (13:16→17:27)
[2023-08-13] MEDS: LOW STRENGTH ASPIRIN 81 MG PO (13:19)
[2023-08-13] MEDS: FEOSOL 325 MG PO (13:19)
[2023-08-13] MEDS: NSS IV (13:35)
[2023-08-13] MEDS: HEPARIN 25000 UNITS/250 ML IV (14:48)
--- NOTE | 2023-08-13 15:03 | CM ---
Spoke with daughter Clare Craig, she is currently in town to visit parents.
Dad and mom both with some dementia, so it is best to speak with her. (need to verify her phone number tomorrow, CM reached her on patients husbands number).
Clare will be in the hospital to see her mother tomorrow.
Clare is looking into possible alternate living arrangements, specifically [facility].
[employer] is one of the hired private caregivers.
Patient has private caregivers 7 days a week 4 hours per day.
Mom hides her medications and throws them away.
Patient has cane and RW that she uses at home.
Lives in a bilevel home with 10 stepts to enter and 5, landing then 5 more steps.
Per daughter patient is able to manage at home after the care givers leave.
PT recommending home with home care, OT recommending skilled rehab, daughter would prefer home with [facility].
Referral to [facility].
Per Clare her mother does have insurance with [employer] medicare, she will bring in card/numbers tomorrow.
Primary care physician Dr Odell
Pharmacy: [facility]
Plan: home with [facility]
[2023-08-13 16:17] LABS: Glucose - Point of Care 193 mg/dl (70-99)
[2023-08-13] MEDS: ROCEPHIN 1000 MG IV (17:26)
[2023-08-13] MEDS: STERILE WATER FOR INJECTION 10 ML IV (17:27)
[2023-08-13 18:13] LABS: APTT 70.5 Sec (23.4-35.0)
[2023-08-13] MEDS: ARICEPT 10 MG PO (21:01)
[2023-08-13 21:50] LABS: Glucose - Point of Care 312 mg/dl (70-99)
[2023-08-14 00:42] LABS: APTT 96.4 Sec (23.4-35.0)
[2023-08-14 03:40] VITALS: BP 94/58
[2023-08-14 06:00] VITALS: BMI 28.8
[2023-08-14] MEDS: HEPARIN 25000 UNITS/250 ML IV ×2 (06:28→22:51)
[2023-08-14 07:18] LABS: Hematocrit 27.7 % (37.0-47.0); Mean Corp Hgb Conc. 32.5 g/dL (33.0-37.0); Mean Corpuscular Hgb 26.9 pg (27.0-31.0); Mean Corpuscular Volume 82.9 fL (81.0-99.0); Mean Platelet Volume 9.8 fL (7.4-10.4); Platelet Count 271 10^3/uL (130-400); Red Blood Cell Count 3.34 10^6/uL (4.20-5.40); Red Cell Dist. Width 14.3 % (11.5-14.5); White Blood Cell Count 10.3 10^3/uL (4.8-10.8)
[2023-08-14 07:30] VITALS: BP 93/60
[2023-08-14 07:44] LABS: Glucose - Point of Care 161 mg/dl (70-99)
[2023-08-14 07:49] LABS: Blood Urea Nitrogen 53 mg/dl (7-17); Calcium 8.5 mg/dl (8.4-10.2); Carbon Dioxide 21 mmol/L (22-30); Chloride 98 mmol/L (98-107); Estimated Creatinine Clearance 25 ml/min; Glucose 150 mg/dl (70-99); Magnesium 1.9 mg/dl (1.6-2.3); Potassium 3.7 mmol/L (3.5-5.1); Sodium 127 mmol/L (135-145); eGFR 29.94
--- NOTE | 2023-08-14 09:03 | W.PN.CD ---
Today's Communication / Plan
-
-Paroxysmal Afib; patient briefly converted to sinus rhythm, but now is in atrial fibrillation again with mildly elevated heart rates.
-Will increase Toprol-XL to 50 mg twice daily.
-Will undergo echocardiogram today.
-JARON: Etiology unclear, worsening; not on any diuretic.
Impression / Plan
-
83 yo female with PMH of HTN, hyperlipidemia, DM, DVT on eliquis, Alzheimer's admitted with weakness.
We are consulted for new A fib with RVR, and elevated troponin.
# New Afib with RVR:
-Paroxysmal Afib; patient briefly converted to sinus rhythm, but now is in atrial fibrillation again with mildly elevated heart rates.
-Will increase Toprol-XL to 50 mg twice daily.
-CHADS2-VASC = 5. She is on eliquis 5mg bid as outpatient for DVT.
-currently on heparin drip while investigating etiology for her presentation; transition back to eliquis before discharge.
# Elevated troponin
-Etiology remains unclear; possibly secondary to acute nonischemic myocardial injury in the setting of infection and A-fib with RVR.
-Will undergo echocardiogram today.
-no CP or ST changes on EKG
-peak 6.9
# Heart murmur
-echo today
#HTN
-monitor with increased Toprol XL
-takes HCTZ 12.5mg at home as well: currently held with rising Cr
#JARON: Etiology unclear, worsening; not on any diuretic.
#Hyperlipidemia
-in setting of DM
-cont statin
Physical Exam
Vital Signs/Labs
Vital Signs
Temp Pulse Resp BP Pulse Ox
98.4 F 101 18 93/60 91
08/14/23 07:30 08/14/23 07:30 08/14/23 07:30 08/14/23 07:30 08/14/23 07:30
08/13/23 08/14/23 08/15/23
06:59 06:59 06:59
Actual Weight 73.255 kg 73.709 kg
08/14/23 07:02
08/14/23 07:02
PT 15.5 Sec (11.4-14.6) H 08/12/23 10:24
INR 1.25 08/12/23 10:24
APTT 72.0 Sec (23.4-35.0) H 08/14/23 07:02
Magnesium 1.9 mg/dl (1.6-2.3) 08/14/23 07:02
LAB Results
08/12/23 08/12/23 08/12/23
10:24 14:07 22:03
Troponin I 3.350 H* 5.890 H* D 6.910 H*
08/13/23
05:13
Troponin I 4.710 H* D
Physical Exam
Constitutional: No acute distress and Comfortable
EENT: Anicteric
Cardiovascular: Pedal edema is absent, Rhythm/rate is irregular, Systolic murmur present (2/6) and S1S2 is normal
Respiratory: Respiratory effort normal and Lungs clear to auscul.
GI: Soft
Neuro/Psych: Alert
Other: Skin (Warm, dry, intact)
Data Reviewed
-
Date of Service: August 14, 2023
EKG: Tracing Personally Visualized and interpreted (Telemetry: A-fib)
Labs: Labs Reviewed by me
[2023-08-14] MEDS: NOVOLOG FLEXPEN-LOW RESISTANCE 1 UNITS SC (09:36)
[2023-08-14] MEDS: NEURONTIN PO ×2 (09:36→09:52)
[2023-08-14] MEDS: ZOLOFT 100 MG PO (09:37)
[2023-08-14] MEDS: LOW STRENGTH ASPIRIN 81 MG PO (09:37)
[2023-08-14] MEDS: PROTONIX 40 MG PO (09:37)
[2023-08-14] MEDS: TOPROL XL 50 MG PO ×2 (09:38→20:15)
[2023-08-14] MEDS: TOPROL XL PO (09:55)
[2023-08-14 11:15] VITALS: BP 107/59
[2023-08-14 12:46] LABS: Glucose - Point of Care 277 mg/dl (70-99)
--- NOTE | 2023-08-14 12:55 | W.PN.HOSP.TC ---
Today's Communication/Plan
-
JARON/hyponatremia workup
continue BB
continue IV heparin
Assessment / Plan
Assessment / Plan
Assessment:
Atrial Fibrillation, appears to be new diagnosis for the patient
- now in NSR
- Continue BB
- continue IV heparin drip; when consistently taking pills, switch to Eliquis
- appreciate Cards
Elevated troponin
- secondary to acute nonischemic myocardial injury in the setting of infection and A-fib with RVR
- Echo: Normal biventricular size and systolic function. Estimated LVEF 55-60%. Basal inferior hypokinesis. Mild mitral stenosis. Peak/mean gradients across the mitral valve are 9/4 mmHg. Mild/moderate aortic stenosis. Peak/mean gradients across the
aortic valve are 20/12 mmHg. The aortic valve by the Continuity equation is calculated at 1.2 cm sq using an LVOT diameter of 1.9 cm. Small pericardial effusion without evidence of hemodynamic compromise.
- peaked at 6.9
- continue ASA
Klebsiella UTI
- continue Rocephin, day 2
JARON
Hyponatremia
- check urine studies/Osm, bladder scans
- add fluids
- HCTZ on held
DVT by history, related
- continue IV heparin drip; when consistently taking pills, switch to Eliquis
Rhabdomyolysis
- CK better
- Hold simvastatin
Essential Hypertension
- Stop HCTZ
- Monitor BP closely while on increased dose of Metoprolol
Diabetes Mellitus, Type II
- HgbA1c 7.4%
- Monitor sugars and continue coverage insulin
Diabetic Neuropathy
- continue gabapentin
CKD Stage IIIb
- monitor creatinine closely
Depression
- continue sertraline
Alzheimer's Dementia, dx 7 years ago
- continue donepezil
- monitor for mood/behavior changes during hospitalization
GERD
- continue Protonix
DVT ppx: IV heparin
Code: DNR
Anticipated Discharge: > 48 hours
Subjective/Interval History
-
Date of Service: August 14, 2023
no new complaints
per RN, at times spitting out pills
Objective Data
-
Labs:
Laboratory Results
08/14/23 08/14/23
07:02 15:00
WBC 10.3
Hgb 9.0 L
Hct 27.7 L
Plt Count 271
APTT 72.0 H Pending
Sodium 127 L
Potassium 3.7
Chloride 98
Carbon Dioxide 21 L
BUN 53 H
Creatinine 1.7 H
Glucose 150 H
Calcium 8.5
Vital Signs:
Vital Signs
Temp Pulse Resp BP Pulse Ox
97.2 F 121 18 107/59 100
08/14/23 11:15 08/14/23 11:15 08/14/23 11:15 08/14/23 11:15 08/14/23 11:15
I&O
08/13/23 08/14/23 08/15/23
06:59 06:59 06:59
Intake Total 1158 / 1158 690 / 690
Balance 1158 / 1158 690 / 690
Physical Exam
-
General: No Apparent Distress
HEENT: Normocephalic and Atraumatic
Respiratory: Clear to Auscultation; Negative Wheezes or Rales
Cardiac: Regular Rhythm and S1/S2
GI: Soft
Genito-urinary: No Costovertebral Tender
Musculoskeletal: No Edema
Neuro: AO x 3
Psych: Calm
Data Reviewed
-
Total Time Spent with Patient (in minutes): 50
Labs: Labs Reviewed by me
[2023-08-14] MEDS: NOVOLOG FLEXPEN-LOW RESISTANCE 3 UNITS SC (12:57)
[2023-08-14] MEDS: DESENEX/MITRAZOL/ZEASORB 1 APPLIC TOPICAL ×2 (12:58→20:16)
--- NOTE | 2023-08-14 13:13 | VNURNOTE ---
Home Health Liaison spoke with patient's daughter Clare by phone at 1300 to discuss [facility] nurse/therapy, visits, schedule and homebound status. Clare is agreeable and understands that visits at home will be 2-3 x per week to assess and teach medical
management. Patient has caregiver along with spouse 2hrs for 2x daily. Clare is concerned about patient not taking meds consistently as she will not swallow pills.
Clare is aware that [facility] will contact them for start of care in 1-2 days after discharge from .
[facility] referral previously accepted, now updated in [facility] Port.
[2023-08-14] MEDS: FEOSOL 325 MG PO (13:23)
[2023-08-14 14:30] VITALS: BP 91/46
[2023-08-14 14:37] LABS: Osmolality Serum 288 mOsm/kg (275-300)
[2023-08-14 15:30] LABS: APTT 94.4 Sec (23.4-35.0)
[2023-08-14] MEDS: STERILE WATER FOR INJECTION 10 ML IV (16:45)
[2023-08-14] MEDS: ROCEPHIN 1000 MG IV (16:45)
[2023-08-14 18:20] LABS: Glucose - Point of Care 143 mg/dl (70-99)
[2023-08-14] MEDS: NOVOLOG FLEXPEN-LOW RESISTANCE SC (18:26)
[2023-08-14 19:00] VITALS: BP 103/72
[2023-08-14 19:53] LABS: Osmolality Urine 275 mOsm/kg (300-900)
[2023-08-14 20:07] LABS: Urine Sodium 12 mmol/L (30-90)
[2023-08-14] MEDS: ARICEPT 10 MG PO (20:15)
[2023-08-14] MEDS: NEURONTIN 300 MG PO (20:16)
[2023-08-14 21:38] LABS: APTT 110.9 Sec (23.4-35.0)
[2023-08-14 22:06] LABS: Glucose - Point of Care 209 mg/dl (70-99)
[2023-08-14 23:00] VITALS: BP 95/62
[2023-08-15 03:00] VITALS: BP 102/75
[2023-08-15 06:00] VITALS: BMI 29.3
[2023-08-15 07:36] VITALS: BP 104/66
[2023-08-15 08:07] LABS: Glucose - Point of Care 173 mg/dl (70-99)
[2023-08-15] MEDS: NOVOLOG FLEXPEN-LOW RESISTANCE 1 UNITS SC (08:19)
[2023-08-15] MEDS: DESENEX/MITRAZOL/ZEASORB 1 APPLIC TOPICAL ×2 (08:20→20:38)
[2023-08-15] MEDS: PROTONIX 40 MG PO (08:21)
[2023-08-15] MEDS: ZOLOFT 100 MG PO (08:21)
[2023-08-15] MEDS: TOPROL XL 50 MG PO ×2 (08:21→20:39)
[2023-08-15] MEDS: NEURONTIN 300 MG PO ×2 (08:21→20:47)
[2023-08-15] MEDS: LOW STRENGTH ASPIRIN 81 MG PO (08:21)
--- NOTE | 2023-08-15 08:27 | W.PN.CD ---
Today's Communication / Plan
-
-The patient has gone back and forth in sinus rhythm/A-fib; now in rate-controlled A-fib, asymptomatic.
-Continue Toprol-XL 50 mg twice daily.
-Will discontinue heparin drip and placed back on Eliquis 5 mg twice daily.
-Normal LVEF on echo yesterday.
-Change back to simvastatin 40 mg daily on discharge.
-No further cardiac recommendations at this time; outpatient follow-up with Cardiology.
Impression / Plan
-
83 yo female with HTN, hyperlipidemia, DM, DVT (on Eliquis), Alzheimer's admitted with weakness.
We are consulted for new A fib with RVR, and elevated troponin.
# New onset paroxysmal atrial fibrillation:
-The patient has gone back and forth in sinus rhythm/A-fib; now in rate-controlled A-fib, asymptomatic.
-Continue Toprol-XL 50 mg twice daily.
-Will discontinue heparin drip and placed back on Eliquis 5 mg twice daily.
-CHADS2-VASC = 5. She is on eliquis 5mg bid as outpatient for DVT.
# Elevated troponin:
-Patient denies any anginal symptoms; most likely secondary to acute nonischemic myocardial injury in the setting of infection and A-fib with RVR.
-Normal LVEF on echo yesterday.
-no CP or ST changes on EKG
-peak 6.9
-Conservative cardiac management overall.
# Valvular heart disease:
-Mild to moderate , mild MS; appears to be clinically stable.
-Conservative cardiac management overall.
#HTN
-Stable/controlled on current dose of Toprol XL.
-Home dose of HCTZ was discontinued due to renal dysfunction; do not resume at this time.
#JARON:
-Etiology unclear, worsening; not on any diuretic.
-Management as per primary team.
#Hyperlipidemia
-in setting of DM
-Change back to simvastatin 40 mg daily on discharge.
Physical Exam
Vital Signs/Labs
Vital Signs
Temp Pulse Resp BP Pulse Ox
97.3 F 77 14 102/75 98
08/15/23 03:00 08/15/23 03:00 08/15/23 03:00 08/15/23 03:00 08/15/23 03:00
08/14/23 08/15/23 08/16/23
06:59 06:59 06:59
Actual Weight 73.709 kg 74.899 kg
PT 15.5 Sec (11.4-14.6) H 08/12/23 10:24
INR 1.25 08/12/23 10:24
APTT 110.9 Sec (23.4-35.0) H 08/14/23 21:20
Magnesium 1.9 mg/dl (1.6-2.3) 08/14/23 07:02
LAB Results
08/12/23 08/12/23 08/12/23
10:24 14:07 22:03
Troponin I 3.350 H* 5.890 H* D 6.910 H*
08/13/23
05:13
Troponin I 4.710 H* D
Physical Exam
Constitutional: No acute distress and Comfortable
EENT: Anicteric
Cardiovascular: Pedal edema is absent, Rhythm/rate is irregular, Systolic murmur present (2/6) and S1S2 is normal
Respiratory: Respiratory effort normal and Lungs clear to auscul.
GI: Soft and Non tender
Neuro/Psych: Alert
Other: Skin (warm, dry, intact)
Data Reviewed
-
Date of Service: August 15, 2023
Echo: Tracing Personally Visualized and interpreted (LVEF 55-60%, basal inferior hypokinesis; mild to moderate aortic stenosis; mild mitral stenosis.)
Medical Tests (PFT, Pathology etc): Discussed with Patient
Labs: Labs Reviewed by me
[2023-08-15 09:27] LABS: Hematocrit 30.5 % (37.0-47.0); Hemoglobin 9.8 g/dL (12.0-16.0); Mean Corp Hgb Conc. 32.1 g/dL (33.0-37.0); Mean Corpuscular Hgb 26.7 pg (27.0-31.0); Mean Corpuscular Volume 83.1 fL (81.0-99.0); Mean Platelet Volume 10.2 fL (7.4-10.4); Platelet Count 329 10^3/uL (130-400); Red Blood Cell Count 3.67 10^6/uL (4.20-5.40); Red Cell Dist. Width 14.3 % (11.5-14.5)
[2023-08-15 09:33] LABS: Blood Urea Nitrogen 55 mg/dl (7-17); Calcium 8.8 mg/dl (8.4-10.2); Carbon Dioxide 20 mmol/L (22-30); Chloride 101 mmol/L (98-107); Estimated Creatinine Clearance 27 ml/min; Glucose 147 mg/dl (70-99); Sodium 131 mmol/L (135-145)
[2023-08-15 09:58] LABS: APTT 111.4 Sec (23.4-35.0)
[2023-08-15 11:09] LABS: Osmolality Serum 298 mOsm/kg (275-300)
[2023-08-15 11:36] VITALS: BP 100/57
[2023-08-15] MEDS: ELIQUIS 5 MG PO ×2 (11:55→20:39)
[2023-08-15] MEDS: FEOSOL 325 MG PO (11:55)
[2023-08-15 12:09] LABS: Glucose - Point of Care 222 mg/dl (70-99)
--- NOTE | 2023-08-15 12:29 | PTOTSP ---
Video Swallow Study
Patient presents with WFL-mild oral and WFL pharyngeal stage of swallowing. Etiology of these changes are felt to be due to her dementia. No aspiration occurred. Please see patient care note for full details of penetration/aspiration and
swallowing physiology.
Recommend:
1. Regular, Thin Liquids
2. General aspiration and reflux precautions (hx GERD)
3. Medications as best tolerated
4. No further dysphagia therapy warranted at this time.
[2023-08-15] MEDS: NOVOLOG FLEXPEN-LOW RESISTANCE 2 UNITS SC ×2 (12:37→18:27)
--- NOTE | 2023-08-15 14:35 | CM ---
Spoke with patient spouse and daughter bedside.
Plan remains home with private care givers, and VN.
Daughter will transport.
IMM completed.
Plan: home with [facility] when stable.
--- NOTE | 2023-08-15 14:45 | W.PN.HOSP.TC ---
Today's Communication/Plan
-
continue current plan of care
repeat AM lab
possible DC in AM
Assessment / Plan
Assessment / Plan
Assessment:
Atrial Fibrillation, appears to be new diagnosis for the patient
- now back in Afib
- Continue BB/Eliquis
- appreciate Cards
Elevated troponin
- secondary to acute nonischemic myocardial injury in the setting of infection and A-fib with RVR
- Echo: Normal biventricular size and systolic function. Estimated LVEF 55-60%. Basal inferior hypokinesis. Mild mitral stenosis. Peak/mean gradients across the mitral valve are 9/4 mmHg. Mild/moderate aortic stenosis. Peak/mean gradients across the
aortic valve are 20/12 mmHg. The aortic valve by the Continuity equation is calculated at 1.2 cm sq using an LVOT diameter of 1.9 cm. Small pericardial effusion without evidence of hemodynamic compromise.
- peaked at 6.9
- continue ASA
Klebsiella UTI
- continue Rocephin, day 3/5
JARON
Hyponatremia
- pre-renal
- possibly contrast related
- HCTZ on held
- monitor BMP
DVT by history, related
- Continue Eliquis
Rhabdomyolysis
- CK better
- Hold simvastatin
Essential Hypertension
- Stop HCTZ
- Monitor BP closely while on increased dose of Metoprolol
Diabetes Mellitus, Type II
- HgbA1c 7.4%
- Monitor sugars and continue coverage insulin
Diabetic Neuropathy
- continue gabapentin
CKD Stage IIIb
- monitor creatinine closely
Depression
- continue sertraline
Alzheimer's Dementia, dx 7 years ago
- continue donepezil
- monitor for mood/behavior changes during hospitalization
GERD
- continue Protonix
DVT ppx: Eliquis
Code: DNR
Anticipated Discharge: Within 24 hours
Subjective/Interval History
-
Date of Service: August 15, 2023
denies any new complaints
Objective Data
-
Labs:
Laboratory Results
08/15/23
08:32
WBC 7.0
Hgb 9.8 L
Hct 30.5 L
Plt Count 329 D
APTT 111.4 H
Sodium 131 L
Potassium 4.0
Chloride 101
Carbon Dioxide 20 L
BUN 55 H
Creatinine 1.6 H
Glucose 147 H
Calcium 8.8
Vital Signs:
Vital Signs
Temp Pulse Resp BP Pulse Ox
97.2 F 77 20 100/57 100
08/15/23 11:36 08/15/23 11:36 08/15/23 11:36 08/15/23 11:36 08/15/23 11:36
I&O
08/14/23 08/15/23 08/16/23
06:59 06:59 06:59
Intake Total 690 / 690 720 / 720
Balance 690 / 690 720 / 720
Physical Exam
-
General: No Apparent Distress
HEENT: Normocephalic and Atraumatic
Respiratory: Negative Wheezes or Rales
Cardiac: Irregular Rhythm
GI: Soft and Nontender
Genito-urinary: No Costovertebral Tender
Musculoskeletal: No Edema
Neuro: AO x 3
Hematologic / Lymphatic: No Lymphadenopathy
Psych: Calm
Data Reviewed
-
Total Time Spent with Patient (in minutes): 42
Labs: Labs Reviewed by me
[2023-08-15 15:50] VITALS: BP 111/52
[2023-08-15] MEDS: ROCEPHIN 1000 MG IV (16:22)
[2023-08-15] MEDS: STERILE WATER FOR INJECTION 10 ML IV (16:23)
[2023-08-15] MEDS: LIPITOR 40 MG PO (16:24)
[2023-08-15 18:22] LABS: Glucose - Point of Care 213 mg/dl (70-99)
[2023-08-15 20:29] VITALS: BP 128/84
[2023-08-15] MEDS: ARICEPT 10 MG PO (20:39)
[2023-08-15 21:44] LABS: Glucose - Point of Care 266 mg/dl (70-99)
[2023-08-15 23:53] VITALS: BP 112/68
[2023-08-16 03:39] VITALS: BP 128/70
--- NOTE | 2023-08-16 03:43 | DOWNTIME ---
There was a [employer] Client Patient Biller Downtime on 08/16/2023 from 0100 to 08/16/2023 at 0322. Downtime documentation of patient's care, including medication administrations, has been reconciled in the electronic record per guidelines. Refer to the
patient's paper chart under the miscellaneous tab to see printed paper medication records and downtime forms.
[2023-08-16 05:46] VITALS: BMI 29.2
[2023-08-16 07:00] VITALS: BP 113/69
[2023-08-16 07:51] LABS: Hemoglobin 8.9 g/dL (12.0-16.0); Mean Corp Hgb Conc. 31.8 g/dL (33.0-37.0); Mean Corpuscular Hgb 26.2 pg (27.0-31.0); Mean Corpuscular Volume 82.4 fL (81.0-99.0); Mean Platelet Volume 9.8 fL (7.4-10.4); Platelet Count 361 10^3/uL (130-400); Red Cell Dist. Width 14.5 % (11.5-14.5); White Blood Cell Count 6.1 10^3/uL (4.8-10.8)
[2023-08-16 08:11] LABS: Glucose - Point of Care 186 mg/dl (70-99)
[2023-08-16 08:31] LABS: Blood Urea Nitrogen 54 mg/dl (7-17); Calcium 8.8 mg/dl (8.4-10.2); Carbon Dioxide 19 mmol/L (22-30); Chloride 104 mmol/L (98-107); Estimated Creatinine Clearance 28 ml/min; Glucose 161 mg/dl (70-99); Sodium 134 mmol/L (135-145); eGFR 34.79
[2023-08-16] MEDS: NOVOLOG FLEXPEN-LOW RESISTANCE 1 UNITS SC (08:39)
[2023-08-16 08:41] LABS: Potassium 4.2 mmol/L (3.5-5.1)
[2023-08-16] MEDS: ZOLOFT 100 MG PO (08:41)
[2023-08-16] MEDS: PROTONIX 40 MG PO (08:41)
[2023-08-16] MEDS: NEURONTIN 300 MG PO (08:41)
[2023-08-16] MEDS: TOPROL XL 50 MG PO (08:41)
[2023-08-16] MEDS: LOW STRENGTH ASPIRIN 81 MG PO (08:42)
[2023-08-16] MEDS: ELIQUIS 5 MG PO (08:42)
[2023-08-16] MEDS: DESENEX/MITRAZOL/ZEASORB 1 APPLIC TOPICAL (08:42)
--- NOTE | 2023-08-16 10:33 | CM ---
PT indicated Home with VN .OT = SNF
PT and daughter requested home with [facility] .
Desi Chan for [facility] set up [facility] for patient.
Daughter will drive her home
PLAN Home with [facility] .
[2023-08-16 11:00] VITALS: BP 106/70
--- NOTE | 2023-08-16 11:15 | W.PN.HOSP.TC ---
Today's Communication/Plan
-
dc home VN
Assessment / Plan
Assessment / Plan
Assessment:
Atrial Fibrillation, appears to be new diagnosis for the patient
- now back in Afib
- Continue BB/Eliquis
- appreciate Cards
Elevated troponin
- secondary to acute nonischemic myocardial injury in the setting of infection and A-fib with RVR
- Echo: Normal biventricular size and systolic function. Estimated LVEF 55-60%. Basal inferior hypokinesis. Mild mitral stenosis. Peak/mean gradients across the mitral valve are 9/4 mmHg. Mild/moderate aortic stenosis. Peak/mean gradients across the
aortic valve are 20/12 mmHg. The aortic valve by the Continuity equation is calculated at 1.2 cm sq using an LVOT diameter of 1.9 cm. Small pericardial effusion without evidence of hemodynamic compromise.
- peaked at 6.9
- continue ASA
Klebsiella UTI
- complete Cephalexin 500mg BID x 1 more day at discharge
JARON
Hyponatremia
- pre-renal
- possibly contrast related
- HCTZ on held
- monitor BMP
DVT by history, related
- Continue Eliquis
Rhabdomyolysis
- CK better
- Hold simvastatin
Essential Hypertension
- Stop HCTZ
- Monitor BP closely while on increased dose of Metoprolol
Diabetes Mellitus, Type II
- HgbA1c 7.4%
- Monitor sugars and continue coverage insulin
Diabetic Neuropathy
- continue gabapentin
CKD Stage IIIb
- monitor creatinine closely
Depression
- continue sertraline
Alzheimer's Dementia, dx 7 years ago
- continue donepezil
- monitor for mood/behavior changes during hospitalization
GERD
- continue Protonix
DVT ppx: Eliquis
Code: DNR
More than 30 minutes spent in discharge including
Final examination of the patient
Summarizing hospital stay
Instructions for continuing care to all relevant caregivers
Preparation of discharge records, prescriptions, and referral forms
Total time spent (in minutes): 45
Anticipated Discharge: Today
Subjective/Interval History
-
Date of Service: August 16, 2023
no complaints
Objective Data
-
Labs:
Laboratory Results
08/16/23
07:01
WBC 6.1
Hgb 8.9 L
Hct 28.0 L
Plt Count 361
Sodium 134 L
Potassium 4.2
Chloride 104
Carbon Dioxide 19 L
BUN 54 H
Creatinine 1.5 H
Glucose 161 H
Calcium 8.8
Vital Signs:
Vital Signs
Temp Pulse Resp BP Pulse Ox
98.2 F 85 18 113/69 97
08/16/23 07:00 08/16/23 08:41 08/16/23 07:00 08/16/23 08:41 08/16/23 07:00
I&O
08/15/23 08/16/23 08/17/23
06:59 06:59 06:59
Intake Total 720 / 720 720 / 720
Balance 720 / 720 720 / 720
Physical Exam
-
General: No Apparent Distress
HEENT: Normocephalic and Atraumatic
Respiratory: Negative Wheezes or Rales
Cardiac: Regular Rhythm and S1/S2
GI: Soft and Nontender
Genito-urinary: No Costovertebral Tender
Musculoskeletal: No Edema
Neuro: AO x 3
Hematologic / Lymphatic: No Lymphadenopathy
Psych: Calm
Data Reviewed
-
Total Time Spent with Patient (in minutes): 45
Labs: Labs Reviewed by me
--- NOTE | 2023-08-16 11:30 | W.DS.TRANS ---
DC Summary - Foundry Worker
-
Discharge Instructions:
Discharge Diagnosis/Procedures Afib, UTI
Diet Diabetic, Carb Controlled
Activity As tolerated
Bathing Restrictions None
Other Services VN
Instructions:
Stand-Alone Forms:
Changes to Home Medications: Yes
Discharge Medications:
DC Medications w/original date entered in [email or web address]
sertraline 100 mg tablet 100 mg PO DAILY Depression 06/16/21
ferrous sulfate 325 mg (65 mg iron) tablet (FeroSul) 325 mg PO NOON Supplement #30 tabs 06/21/21
pantoprazole 40 mg tablet,delayed release 40 mg PO DAILY #30 tabs 06/21/21
donepezil 10 mg tablet 10 mg PO HS Mental Health/Anxiety 08/12/23
gabapentin 300 mg capsule 300 mg PO BID Pain 08/12/23
apixaban 5 mg tablet (Eliquis) 5 mg PO BID Blood Clot Prevention/Tx #60 tabs 08/16/23
aspirin 81 mg chewable tablet (Children's Aspirin) 81 mg PO DAILY #100 tabs 08/16/23
cephalexin 500 mg capsule 500 mg PO BID #2 caps 08/16/23
metoprolol succinate 50 mg tablet,extended release 24 hr 50 mg PO BID #60 tabs 08/16/23
simvastatin 40 mg tablet 40 mg PO QPM High cholesterol #30 tabs 08/16/23
Home Medication Changes
Eliquis resumed
BB increased
HCTZ stopped
ASA added
Pending Results: No
Total time spent discharging patient (in min): 42
[2023-08-16 11:49] LABS: Glucose - Point of Care 235 mg/dl (70-99)
[2023-08-16] MEDS: ROCEPHIN 1000 MG IV (12:22)
[2023-08-16] MEDS: STERILE WATER FOR INJECTION 10 ML IV (12:23)
[2023-08-16] MEDS: FEOSOL 325 MG PO (12:23)
[2023-08-16] MEDS: NOVOLOG FLEXPEN-LOW RESISTANCE 2 UNITS SC (12:24)
== END 2023-08-16 14:41 | disposition home health service (06) | DRG 309 ==
LOC: 4 WEST ACU 12:58
PROVIDERS: Physician Assistant; Physician Assistant Medical; ADMITTING PHYSICIAN Student in an Organized Health Care Education/Training Program; ATTENDING PHYSICIAN Internal Medicine; CONSULT PHYSICIAN Internal Medicine; EMERGENCY PHYSICIAN Emergency Medicine
DX: I48.0 Paroxysmal atrial fibrillation (principal); E87.1 Hypo-osmolality and hyponatremia; I5A Non-ischemic myocardial injury (non-traumatic); N39.0 Urinary tract infection, site not specified; N17.9 Acute kidney failure, unspecified; M62.82 Rhabdomyolysis; F02.83 Dementia in other diseases classified elsewhere, unspecified severity, with mood disturbance; B96.1 Klebsiella pneumoniae [K. pneumoniae] as the cause of diseases classified elsewhere; I12.9 Hypertensive chronic kidney disease with stage 1 through stage 4 chronic kidney disease, or unspecified chronic kidney disease; N18.32 Chronic kidney disease, stage 3b; E11.40 Type 2 diabetes mellitus with diabetic neuropathy, unspecified; E11.22 Type 2 diabetes mellitus with diabetic chronic kidney disease; F32.A Depression, unspecified; G30.9 Alzheimer's disease, unspecified; K21.9 Gastro-esophageal reflux disease without esophagitis; Z66 Do not resuscitate; Z79.01 Long term (current) use of anticoagulants; Z86.718 Personal history of other venous thrombosis and embolism; Z79.82 Long term (current) use of aspirin
CPT/HCPCS: 70450; 71046; 71275; 74230; 80048; 80053; 81003; 81015; 82550; 82570; 82962; 83036; 83735; 83930; 83935; 84300; 84443; 84484; 85025; 85027; 85610; 85730; 86850; 86900; 86901; 87077; 87086; 87186; 87502; 87811; 92611; 93005; 93306; 96374; 97162; 97166; 99285; Q9967

== ENCOUNTER 2023-09-20 21:31 | Inpatient (IN) | payer OTHER, SELFPAY ==
[2023-09-20] VITALS (9 sets, daily range): BP systolic 99–159; BP diastolic 72–101; BMI 29.8
--- NOTE | 2023-09-20 15:49 | ED.GENMED ---
History of Present Illness
General
Chief Complaint: Fall
Time Seen by Provider: 09/20/23 15:23
Travel History
Have you had any contact with someone who has COVID-19?: No
Do you have any symptoms of coronavirus? Fever > 100 degrees, chills, cough, shortness of breath, sore throat, loss of taste or smell, muscle aches, or headache?: No
History of Present Illness
History of Present Illness:
83yoF hx dementia, HTN, HLD, DM, CKD, atrial fibrillation presenting with decreased PO intake for the past 5 days and 'stomach ache'. Patient does not know why she is here and denies any complaints at this time. Daughter on the phone states patient
has had decreased oral intake for the past 5 days and has been complaining of abdominal pain. Daughter states she discussed with visiting nurse who recommended to come to the ER for further evaluation. Daughter and patient both deny recent fever,
chills, cough, chest pain, shortness of breath, nausea, vomiting, diarrhea, or urinary symptoms.
Past History
Past History
ED Past Medical History: Cancer, Hypercholesterolemia and NIDDM
ED Past Surgical History: Appendectomy, Gynecological (Hysterectomy), Orthopedic and Other (Whipple)
Social History
Living: with family
Phy Exam
Physical Exam
Physical Exam:
General: Alert, no acute distress
Head: NCAT
Eyes: clear conjunctiva
Neck: supple
Cardiac: irregularly irregular rhythm, intermittently tachycardic to low 100s
Lungs: Decreased breath sounds bilateral bases, otherwise clear to auscultation bilaterally. No wheezes, rales, or rhonchi. Speaking full unlabored sentences. No respiratory distress.
Abdomen: soft, nondistended RLQ tenderness to palpation. No rebound or guarding.
MSK: no lower extremity edema bilaterally. No deformity
Skin: warm, dry
Neuro: Alert and oriented to self and place. no focal deficits
Course
Orders/Labs/Results
Orders:
Orders
09/20/23 15:43
Abdomen/Pelvis w Contrast CT [CT Abd/pelvis W Iv Cont] Urgent
Comment:
Reason For Exam: rlq tenderness
09/20/23 15:44
0.9% Sodium Chloride 1000 ml [Nss] 1,000 ml IV BOLUS
09/20/23 15:57
CBC/With Diff [Complete Blood Count/With Diff] Urgent
CMP [Comprehensive Metabolic Panel] Urgent
Lipase Urgent
09/20/23 17:51
UA Reflex to Culture [Urinalysis Reflex To Culture] Urgent
Date Specimen was Collected: 09/20/23
Time Specimen was Collected: 17:48
Urine Microscopic Reflex Cult Urgent
Urine Culture Urgent
SINDHU Source: U
Specimen Description:
Date Specimen was Collected: 09/20/23
Time Specimen was Collected: 17:48
09/20/23 18:19
CXR2 [CR Chest - 2 Views ] Urgent
Comment:
Reason For Exam: bilateral pleural effusions on CT
09/20/23 18:20
CefTRIAXone [Rocephin] 1,000 mg IV NOW STA
09/20/23 19:36
Azithromycin 500 mg/250 ml [Zithromax Infusion] 500 mg in 250 ml IV NOW
Metoprolol [Lopressor] 5 mg IV NOW STA
09/20/23 19:59
Ondansetron Injectable [Zofran] 4 mg .ROUTE .STK-MED ONE
Ondansetron Injectable [Zofran] 4 mg IV NOW STA
09/20/23 20:14
Metoprolol [Lopressor] 5 mg IV NOW STA
09/20/23 20:34
Metoprolol [Lopressor] 5 mg IV NOW STA
09/20/23 20:42
EKG [Electrocardiogram (*1)] Urgent
Reason for Study: Tachycardia
EKG- Treatment ONCE
NT-proBNP Urgent
Troponin I Urgent
Abnormal Lab Results
09/20/23 09/20/23
15:57 17:51
WBC 16.2 H 10^3/uL
(4.8-10.8)
Hgb 11.5 L g/dL
(12.0-16.0)
MCV 80.4 L fL
(81.0-99.0)
MCH 24.8 L pg
(27.0-31.0)
MCHC 30.8 L g/dL
(33.0-37.0)
RDW 14.6 H %
(11.5-14.5)
Plt Count 475 H 10^3/uL
(130-400)
Abs Immat Gran (auto) 0.2 H 10^3/uL
(0-0.05)
Absolute Neuts (auto) 13.6 H 10^3/uL
(1.4-6.5)
Absolute Monos (auto) 0.8 H 10^3/uL
(0.1-0.6)
Immature Gran % 0.9 H %
(0-0.5)
Neutrophils % 84.0 H %
(42.2-75.2)
Lymphocytes % 9.5 L %
(20.5-51.1)
Sodium 134 L mmol/L
(135-145)
BUN 19 H mg/dl
(7-17)
Creatinine 1.1 H mg/dL
(0.6-1.0)
Glucose 227 H mg/dl
(70-99)
Albumin 3.3 L g/dl
(3.5-5.0)
Urine Ketones 1+ A
(Negative)
Ur Occult Blood Reflex Trace A
(Negative)
Urine Bilirubin 1+ A
(Negative)
Leukocyte Esterase Rfl 1+ A
(Negative)
Urine Bacteria (Reflex) Many A
(Negative)
09/20/23 15:57
09/20/23 15:57
Vital Signs
Initial and Last Documented VS:
Initial Vital Signs
Temp Pulse Resp BP Pulse Ox
99.2 F 64 20 99/72 95
09/20/23 13:26 09/20/23 13:26 09/20/23 13:26 09/20/23 13:26 09/20/23 13:26
Last Documented Vital Signs
Temp Pulse Resp BP Pulse Ox
99.2 F 115 19 140/97 93
09/20/23 13:26 09/20/23 20:39 09/20/23 20:00 09/20/23 20:39 09/20/23 18:15
Comment
Comment:
Patient presents to the Emergency Department with ___decreased appetite, abdominal pain
Number and Complexity of Problems Addressed at the Encounter
� Chronic conditions affecting care: dementia
� Acute Exacerbation and/or Progression of Chronic Illness:
� Differential Diagnosis includes: UTI, kidney stone, diverticulitis, bowel obstruction
Amount and/or Complexity of Data to be Reviewed and Analyzed
� I performed an independent evaluation of and my interpretation is:
EKG:
CT: bilateral pleural effusions
Xrays: bilateral pleural effusions
Laboratory Studies: WBC16.2, UA concerning for uTI
Other:
� Review of other/old records reveals:
� Clinical information was obtained by an independent historian:
� Prescriptions/Medications Considered but not given:
� Further testing considered but not performed:
Risk of Complications and/or Morbidity or Mortality of Patient Management
� Social Determinants of health affecting care: lives at home with
� Discussion with other providers (PCP, Hospitalists, Consultants, etc):
� Escalation of care including admission/observation vs risk of discharge considered: 83yoF hx dementia, afib presenting with decreased appetite for the past [address] abdomen shows bilateral pleural effusions. Ordered CXr, Moderate bilateral
pleural effusions, left slightly greater than right. No significant vascular congestion. Limited evaluation of cardiac size, with the cardiac margin is obscured by pleural effusions. The upper lung zones are clear. as read by radiology. UA shows
possible UTI. Due to elevated WBC, ordered ceftriaxone/azithromycin. Patient in afib with rates initially 90s-110s, then 110s-130s. Ordered metoprolol for rate control. Nursing staff states found pills on patient's person. Concern patient is not
taking medications as prescribed. Possible pleural effusions from episodes of afib with RVR. Discussed with hospitalist who accepts for admission
*Critical Care Note
Total Time (30-74mins, 75-104mins- exclusive of procedures): Not Applicable
ED Attending Note
-
Portions of this chart may have been created with voice recognition software.� Occasional wrong word or��sound alike� substitutions may have occurred due to the inherent limitations of voice recognition software.
Discharge Plan
Departure
Patient Disposition: Admit
Date of Disposition: 09/20/23
Time of Disposition: 20:29
Presentation/result/management discussed w/ accepting MD/DO: Hospitalist
Discharge Problem:
Bilateral pleural effusion, Acute UTI
Prescriptions:
No Action
pantoprazole 40 MG tablet,delayed release (DR/EC)
40 mg PO DAILY Qty: 30 0RF
ferrous sulfate [FeroSul] 325 MG tablet
325 mg PO NOON Qty: 30 0RF
gabapentin 300 MG capsule
300 mg PO BID
donepezil 10 mg Tablet
10 mg PO HS
aspirin [Children's Aspirin] 81 mg Tablet,Chewable
81 mg PO DAILY Qty: 100 0RF
metoprolol succinate 50 mg Tablet Extended Release 24 Hr
50 mg PO BID Qty: 60 0RF
simvastatin 40 MG tablet
40 mg PO QPM Qty: 30 0RF
Eliquis 5 MG tablet
5 mg PO BID Qty: 60 0RF
sertraline 50 mg tablet
50 mg PO DAILY
Referrals:
UNKNOWN - PT DOES,NOT KNOW [Family Provider] -
Interventions
Interventions:
*Risk Screen - Suicide Last Done: 09/20/23 13:43
*General Assessment Last Done: 09/20/23 13:43
*Neglect/Abuse Screening Last Done: 09/20/23 13:43
ED- Fall Risk Assessment Last Done: 09/20/23 13:43
*ED COVID-19 Vaccine History Last Done: 09/20/23 13:26
ED-Musculoskeletal Assessment Last Done: 09/20/23 15:10
ED- Neurological Assessment Last Done: 09/20/23 15:10
ED-Skin Assessment Last Done: 09/20/23 15:10
Discharge Date and Time
Print Language: SLOVENIAN
[2023-09-20] MEDS: NSS 1000 IV (15:58)
[2023-09-20 16:12] LABS: % Basophils 0.2 % (0-2); % Eosinophils 0.2 % (0-6); % Immature Granulocytes 0.9 % (0-0.5); % Lymphocytes 9.5 % (20.5-51.1); % Monocytes 5.2 % (1.7-9.3); Absolute Immature Granulocytes 0.2 10^3/uL (0-0.05); Absolute Lymphocytes 1.5 10^3/uL (1.2-3.4); Absolute Monocytes 0.8 10^3/uL (0.1-0.6); Absolute Neutrophils 13.6 10^3/uL (1.4-6.5); Hematocrit 37.3 % (37.0-47.0); Hemoglobin 11.5 g/dL (12.0-16.0); Mean Corp Hgb Conc. 30.8 g/dL (33.0-37.0); Mean Corpuscular Hgb 24.8 pg (27.0-31.0); Mean Corpuscular Volume 80.4 fL (81.0-99.0); Mean Platelet Volume 9.2 fL (7.4-10.4); Nucleated Red Blood Cells % 0 %; Platelet Count 475 10^3/uL (130-400); Red Blood Cell Count 4.64 10^6/uL (4.20-5.40); Red Cell Dist. Width 14.6 % (11.5-14.5); White Blood Cell Count 16.2 10^3/uL (4.8-10.8)
[2023-09-20 16:30] LABS: ALT (SGPT) < 10 U/L (0-35); AST (SGOT) 14 U/L (14-36); Albumin 3.3 g/dl (3.5-5.0); Alkaline Phosphatase 109 U/L (38-126); Blood Urea Nitrogen 19 mg/dl (7-17); Calcium 9.1 mg/dl (8.4-10.2); Carbon Dioxide 25 mmol/L (22-30); Chloride 99 mmol/L (98-107); Glucose 227 mg/dl (70-99); Potassium 4.3 mmol/L (3.5-5.1); Sodium 134 mmol/L (135-145); Total Bilirubin 0.7 mg/dl (0.2-1.3); Total Protein 6.5 g/dl (6.3-8.2); eGFR 50.48
[2023-09-20 16:48] LABS: Lipase 29 U/L (23-300)
[2023-09-20 17:56] LABS: Urine Albumin Trace (Neg - Trace); Urine Bilirubin 1+ (Negative); Urine Character Slightly Cloudy (Clear); Urine Color Yellow; Urine Glucose Negative (Negative); Urine Ketone 1+ (Negative); Urine Leukocyte 1+ (Negative); Urine Nitrite Negative (Negative); Urine Occult Blood Trace (Negative); Urine Specific Gravity 1.015 (<1.030); Urine Urobilinogen 1+ (Neg - 1+)
[2023-09-20 18:05] LABS: Urine Squamous Cell 16-20 /LPF (Few)
[2023-09-20 18:07] LABS: Urine Bacteria Many (Negative); Urine Red Blood Cell 0-2 /HPF (0-2)
--- NOTE | 2023-09-20 18:28 | PHANOTE ---
Med Rec Note:
Pt unable to answer questions about home medications. Home med list compiled from Dr Keene and ECW visit on 09/06/23.
[2023-09-20] MEDS: ROCEPHIN 1000 MG IV (18:41)
[2023-09-20] MEDS: ZITHROMAX INFUSION 250 IV (19:44)
[2023-09-20] MEDS: LOPRESSOR 5 MG IV ×3 (19:45→20:39)
[2023-09-20] MEDS: ZOFRAN 4 MG IV (20:00)
--- NOTE | 2023-09-20 20:49 | HPS.HSE ---
Family Physician
-
Family Physician: NOT KNOW UNKNOWN - PT DOES
Chief Complaint
-
abdominal pain
History of Present Illness
83-year-old female past medical history of paroxysmal atrial fibrillation diagnosed in July, recent Klebsiella UTI, prior DVT on Eliquis, hypertension, type 2 diabetes, diabetic neuropathy, CKD 3B, depression, Alzheimer's dementia, GERD, presenting
with decreased p.o. intake for the past 5 days and stomach ache. Patient does not know why she is here and denies any complaints at this time. As per ER, daughter who discussed with visiting nurse recommended patient come to the emergency room for
abdominal pain. Daughter denies any fevers, chills, cough, chest pain, shortness of breath, nausea or vomiting, diarrhea or urinary symptoms.
Patient is very poor historian and denies all complaints. When asked if she is taking her meds she states she is taking her meds however medications were found in her bra.
Medical History
Past Medical History
Past Medical History: Reports Other (paroxysmal atrial fibrillation diagnosed in July, recent Klebsiella UTI, prior DVT on Eliquis, hypertension, type 2 diabetes, diabetic neuropathy, CKD 3B, depression, Alzheimer's dementia, GERD)
Past Surgical History: Reports Other (Appendectomy, Gynecological (Hysterectomy), Orthopedic and Other (Whipple))
Social History
Tobacco: Non-smoker
Alcohol: None
Drug: None
Family History
Family History: Not pertinent
Allergies / Home Medications
Allergies reflects when Allergies were last updated in [employer].
Home Medications with original date entered in [employer]
Allergy/Medication List:
Allergies
Allergy/AdvReac Type Severity Reaction Status Date / Time
codeine Allergy nausea and Verified 09/20/23 13:27
vomiting/DIARRHEA
diphenhydramine Allergy shakes and Verified 09/20/23 13:27
tremors/SWEATING
Home Medications
ferrous sulfate 325 mg (65 mg iron) tablet (FeroSul) 325 mg PO NOON Supplement #30 tabs 06/21/21
pantoprazole 40 mg tablet,delayed release 40 mg PO DAILY #30 tabs 06/21/21
donepezil 10 mg tablet 10 mg PO HS Mental Health/Anxiety 08/12/23
gabapentin 300 mg capsule 300 mg PO BID Pain 08/12/23
apixaban 5 mg tablet (Eliquis) 5 mg PO BID Blood Clot Prevention/Tx #60 tabs 08/16/23
aspirin 81 mg chewable tablet (Children's Aspirin) 81 mg PO DAILY #100 tabs 08/16/23
metoprolol succinate 50 mg tablet,extended release 24 hr 50 mg PO BID #60 tabs 08/16/23
simvastatin 40 mg tablet 40 mg PO QPM High cholesterol #30 tabs 08/16/23
sertraline 50 mg tablet 50 mg PO DAILY 09/20/23
Review of Systems
-
History Source: Patient
A 12 point ROS was completed and negative except as noted: Yes
Constitutional: Reports No Symptoms
EENT: Reports No Symptoms
Respiratory: Reports No Symptoms
Cardiac: Reports No Symptoms
Abdomen/GI: Reports No Symptoms
: Reports No Symptoms
Musculoskeletal: Reports No Symptoms
Skin: Reports No Symptoms
Neurological: Reports No Symptoms
Endocrine: Reports No Symptoms
Hematologic/Lymphatic: Reports No Symptoms
Psych: Reports No Symptoms
Physical Exam
Vital Signs
Vital Signs
Temp Pulse Resp BP Pulse Ox
99.2 F 115 19 140/97 93
09/20/23 13:26 09/20/23 20:39 09/20/23 20:00 09/20/23 20:39 09/20/23 18:15
Physical Exam
General: Well Developed, Well Nourished and No Apparent Distress
HEENT: NormoCephalic, Moist mucous membranes and Atraumatic
Respiratory: Clear
Cardiac: S1/S2 and Regular Rhythm; No Murmur or Rub
GI: Soft, Non Tender, Non Distended and Normal Bowel Sounds; No Organomegaly
Rectal: Deferred by Provider
Musculoskeletal: No Clubbing, No Cyanosis and No Edema
Skin: No Rash
Neuro: Nonfocal/grossly intact
Laboratory Results
-
09/20/23 15:57
09/20/23 15:57
Laboratory Results
Total Bilirubin 0.7 mg/dl (0.2-1.3) 09/20/23 15:57
AST 14 U/L (14-36) 09/20/23 15:57
ALT < 10 U/L (0-35) 09/20/23 15:57
Alkaline Phosphatase 109 U/L (38-126) 09/20/23 15:57
Lipase 29 U/L (23-300) 09/20/23 15:57
Data Reviewed
-
Lab Data: Labs Reviewed by me
Old Records: Reviewed
Impression/Plan
-
IMPRESSION:
PLAN:
# Moderate to large bilateral pleural effusions likely secondary to CHF exacerbation likely secondary to untreated A-fib with RVR
-Patient denies any symptoms but poor historian
-O2 saturation of 93% room air from 98-100 previously
-Attempted to call daughter for further history however she did not pickling operator phone
-CT abdomen pelvis and chest x-ray showed moderate to large bilateral pleural effusions without pulmonary edema
-Check cardiac BNP
-IV fluids given
-Check I's and O's, daily weights
-Start Lasix 40 IV daily
-Will likely require thoracentesis after discussion with daughter
# Atrial fibrillation with RVR likely due to medication noncompliance
-Heart rate of 120s which responded to IV metoprolol
-Continue metoprolol succinate 50 mg twice daily
-Cardiology consulted
-Continue Eliquis
# Abdominal pain/leukocytosis secondary to UTI
# History of recent Klebsiella UTI
-UA shows slightly cloudy urine, +1 leukocyte esterase, 6-10 WBC
-Check urine culture
-Ceftriaxone
History of mild to moderate aortic stenosis
History of prior DVT
-Continue Eliquis
Essential hypertension
Type 2 diabetes
-not on meds
Diabetic neuropathy
-Continue gabapentin
CKD 3B
-Renal function at baseline
Depression
-Continue sertraline
Alzheimer's dementia
-Continue donepezil
GERD
-Continue Protonix
Hyperlipidemia
-Continue statin
Chronic anemia
-Continue iron supplement
History of Whipple procedure
DNR
DVT prophylaxis�Eliquis
Cardiac diet
[2023-09-20 21:33] LABS: NT-proBNP 10200 pg/ml; Troponin I < 0.012 ng/ml
--- NOTE | 2023-09-20 22:05 | EDRN ---
Updated pts daughter, she is requesting a call from the physicians tomorrow since she is in [place]. Pts daughters phone number is in the chart.
--- NOTE | 2023-09-20 22:30 | PTCARENOTE ---
Pt transferred from ED. Pt AAOX1/2, HR sustaining in 110s-120s, NEONATAL DOCTOR notified. Pt oriented to unit, call smith within reach, bed alarm applied. Will continue with current plan.
[2023-09-21 03:19] VITALS: BP 122/67
--- NOTE | 2023-09-21 03:30 | W.PN.UPDATE ---
Update Note
Progress Note Update
RN notifies HR sustaining in 120's, Afib on the monitor, BP 126/67 will give Metoprolol IV 2.5mgx 1. Hx of Afib, will add Eliquis 5mg PO BID (home dose).
[2023-09-21] MEDS: TYLENOL 650 MG PO (03:45)
[2023-09-21] MEDS: LOPRESSOR 2.5 MG IV (03:46)
[2023-09-21 06:00] VITALS: BMI 29.9
[2023-09-21 07:30] VITALS: BP 122/92
[2023-09-21 07:31] LABS: Glucose - Point of Care 208 mg/dl (70-99)
[2023-09-21 07:35] LABS: % Basophils 0.5 % (0-2); % Eosinophils 0.5 % (0-6); % Immature Granulocytes 0.8 % (0-0.5); % Lymphocytes 12.1 % (20.5-51.1); % Monocytes 7.6 % (1.7-9.3); % Neutrophils 78.5 % (42.2-75.2); Absolute Basophils 0.1 10^3/uL (0-0.2); Absolute Eosinophils 0.1 10^3/uL (0-0.7); Absolute Immature Granulocytes 0.1 10^3/uL (0-0.05); Absolute Lymphocytes 1.8 10^3/uL (1.2-3.4); Absolute Monocytes 1.1 10^3/uL (0.1-0.6); Absolute Neutrophils 11.4 10^3/uL (1.4-6.5); Hematocrit 35.2 % (37.0-47.0); Mean Corp Hgb Conc. 31.3 g/dL (33.0-37.0); Mean Corpuscular Hgb 25.1 pg (27.0-31.0); Mean Corpuscular Volume 80.2 fL (81.0-99.0); Mean Platelet Volume 9.2 fL (7.4-10.4); Nucleated Red Blood Cells % 0 %; Platelet Count 459 10^3/uL (130-400); Red Blood Cell Count 4.39 10^6/uL (4.20-5.40); Red Cell Dist. Width 14.6 % (11.5-14.5); White Blood Cell Count 14.6 10^3/uL (4.8-10.8)
--- NOTE | 2023-09-21 07:45 | CON.CAR ---
Addendum entered and electronically signed by Jorge Cano MD 09/21/23 11:09:
Patient seen and examined in collaboration with SHELL MACHINE OPERATOR; agree with below.
-Patient with medical history as outlined below, including recent onset PAF; heart rate is mildly elevated, but it appears the patient is likely noncompliant with medications at home.
-Agree with resuming home dose of Toprol-XL 50 mg twice daily.
Original Note:
Consultation
Consultation Request
Date/Time Consultation Requested: 09/20/23 0075
Date/Time Consultation Performed: 09/21/23 80
Requesting Provider: Dr. Magdaleno
Performing Provider: Vita CASEY for Dr. Cano
Reason for Consultation: CHF
Medical History
-
Chief Complaint: abdominal pain
History of Present Illness:
83 y/o female with dementia, hypertension, dyslipidemia, diabetes, hx DVT on Eliquis, who was recently hospitalized with UTI and new PAF. Metoprolol was increase for better rate control in AFIB. HCTZ was stopped for renal dysfunction. She came in
for lower abdominal pain and poor PO intake per chart. Patient is a poor historian, but does report lower abdominal pain. She denies SOB. CXR shows pleural effusions. BNP elevated. She has been given a dose of IV Lasix. She is getting antibiotics.
HR fast, but looks like there are some med compliance issues and she was not ordered her usual metoprolol this admit. She is s/p IV metoprolol here.
Past Medical History
Past Medical History: Arrhythmias, HTN, Hypercholesterolemia, NIDDM and Other (as above)
Social History
Tobacco: Non-Smoker
Family History
Family History: Reviewed & Not Pertinent
Allergies / Home Medications
Allergy/AdvReac Type Severity Reaction Status Date / Time
codeine Allergy nausea and Verified 09/20/23 13:27
vomiting/DIARRHEA
diphenhydramine Allergy shakes and Verified 09/20/23 13:27
tremors/SWEATING
�Medication �Instructions �Recorded �Confirmed �Type
ferrous sulfate 325 mg (65 mg 325 mg PO NOON Supplement #30 tabs 06/21/21 09/20/23 Rx
iron) tablet (FeroSul)
pantoprazole 40 mg tablet,delayed 40 mg PO DAILY #30 tabs 06/21/21 09/20/23 Rx
release
donepezil 10 mg tablet 10 mg PO HS Mental Health/Anxiety 08/12/23 09/20/23 History
gabapentin 300 mg capsule 300 mg PO BID Pain 08/12/23 09/20/23 History
apixaban 5 mg tablet (Eliquis) 5 mg PO BID Blood Clot 08/16/23 09/20/23 Rx
Prevention/Tx #60 tabs
aspirin 81 mg chewable tablet 81 mg PO DAILY #100 tabs 08/16/23 09/20/23 Rx
(Children's Aspirin)
metoprolol succinate 50 mg 50 mg PO BID #60 tabs 08/16/23 09/20/23 Rx
tablet,extended release 24 hr
simvastatin 40 mg tablet 40 mg PO QPM High cholesterol #30 08/16/23 09/20/23 Rx
tabs
sertraline 50 mg tablet 50 mg PO DAILY 09/20/23 09/20/23 History
Review of Systems
-
Unable to obtain full review of systems at this time due to: Dementia
History Source: Other (chart)
Abdomen/GI: Other (abdominal pain and poor PO intake per chart. Per patient lower abdominal pain)
Physical Exam
Vital Signs
Temp Pulse Resp BP Pulse Ox
99.0 F 123 20 122/67 93
09/21/23 03:19 09/21/23 03:46 09/21/23 03:19 09/21/23 03:46 09/21/23 03:19
Lab Results
Troponin I < 0.012 ng/ml 09/20/23 20:56
Xqc-[id number] Pept 03660 pg/ml 09/20/23 20:56
Physical Exam
General: Well Developed and No Apparent Distress
HEENT: Normocephalic and Anicteric
Respiratory: Other (diminished to b/l bases)
Cardiac: Irregular Rhythm
Skin: Warm and Dry
Neuro: Awake and Alert
Psych: Calm
Impression / Plan
-
Acute HFpEF:
-recent echo as below, normal EF, mild to moderate
-get HR under control as below
-was on HCTZ, but stopped last admit due to renal function
-BNP 54741, pleural effusions on CXR- hospitalists considering thoracentesis
-continue IV lasix, which requires intensive monitoring
AFIB, has been paroxysmal based on my review of last admit: elevated this AM
-resume metoprolol 50 mg PO BID and see how HR's are when she is getting it since there seems to be compliance issues- will likely need CM consult this admit regarding d/c plans
-also patient with active infection could be affecting HR
-follow tele
-continue Eliquis
HTN:
-monitor on BB
UTI:
-on ABX
-management per primary team
Data Reviewed
-
EKG: Tracing Personally Visualized and interpreted (afib 108 BPM)
Radiology: Report Reviewed by me (CXR 09/20/23: Moderate bilateral pleural effusions, left slightly greater than right. No significant vascular congestion. Limited evaluation of cardiac size, with the cardiac margin is obscured by pleural effusions.
The upper lung zones are clear.)
Medical Tests (Nuc Med, Echo etc): Report Reviewed by me (Echo 08/14/23: LVEF 55-60%. Basal inferior hypokinesis. Mild mitral stenosis. Peak/mean gradients 9/4 mmHg. Mild/moderate aortic stenosis. Peak/mean gradients are 20/12 mmHg. The aortic valve
1.2 cm sq. Small pericardial effusion without evidence of hemodynamic compromise. )
Labs: Labs Reviewed by me
[2023-09-21 07:48] LABS: ALT (SGPT) < 10 U/L (0-35); AST (SGOT) 13 U/L (14-36); Alkaline Phosphatase 99 U/L (38-126); Blood Urea Nitrogen 18 mg/dl (7-17); Calcium 9.1 mg/dl (8.4-10.2); Carbon Dioxide 22 mmol/L (22-30); Chloride 102 mmol/L (98-107); Estimated Creatinine Clearance 36 ml/min; Glucose 183 mg/dl (70-99); Potassium 4.4 mmol/L (3.5-5.1); Sodium 133 mmol/L (135-145); Total Bilirubin 0.6 mg/dl (0.2-1.3); Total Protein 6.1 g/dl (6.3-8.2); eGFR 50.48
--- NOTE | 2023-09-21 08:00 | W.PN.HOSP.TC ---
Today's Communication/Plan
-
see bold
Assessment / Plan
Assessment / Plan
Gen: NAD, AAOx3.
Eyes: EOMI, PERRLA, no scleral icterus.
Neck: supple.
CV: irreg/irreg, +S1/S2, no m/r/g.
Resp: dec BS in the bases
Abd: +BS, soft, NT, ND
Skin: No rashes. no LE edema
Neuro: CN 2-12 intact, non-focal.
Psych: Normal mood and affect.
CT A/P: Moderate to large bilateral pleural effusions. Adjacent pulmonary parenchymal consolidation, likely compressive atelectasis. Minimal pericardial effusion. Postsurgical changes consistent with Whipple procedure. No focal mass or adenopathy.
No focal collection or abscess. No evidence of bowel obstruction. The appendix is not identified with certainty. No secondary signs of appendicitis. No obstructive uropathy. Probable small proteinaceous cyst at the anterior inferior margin of the
left kidney. Stable in size. Very subtle diminished stature is noted with trabecular sclerosis involving the superior endplate of L1, suspicious for subtle acute compression deformity. No hip fracture or dislocation. No periacetabular iliac fracture.
CXR: Moderate bilateral pleural effusions, left slightly greater than right. No significant vascular congestion. Limited evaluation of cardiac size, with the cardiac margin is obscured by pleural effusions. The upper lung zones are clear.
Moderate to large bilateral pleural effusions likely secondary to CHF exacerbation likely secondary to untreated A-fib with RVR:
-on admission, pt denied any symptoms but poor historian. O2 sat 93% RA from 98-100% previously
-IV fluids given in the ER
-CT abdomen pelvis and chest x-ray showed moderate to large bilateral pleural effusions without pulmonary edema
-proBNP 10,200
-Echo 08/14/23: EF 55-60%
-I/O's, daily weights
-cont IV Lasix
Atrial fibrillation with RVR:
-likely due to medication noncompliance
-cont BB/Eliquis
-c/s cards
Abdominal pain/leukocytosis:
-possibly due to UTI
-h/o recent Klebsiella UTI
-UA shows slightly cloudy urine, +1 leukocyte esterase, 6-10 WBC
-Check urine culture
-cont Ceftriaxone for now
Other problems:
h/o mild-mod
h/o DVT: cont Eliquis
Essential hypertension
DM2 with diabetic neuropathy: not on antihyperglycemics at home. Start SSI/accuchecks. Check a1c. Cont neurontin.
CKD3b
Depression: cont Zoloft
Alzheimer's dementia: Cont Aricept
GERD: cont PPI
Hyperlipidemia: cont statin
Chronic anemia: Continue iron supplement
History of Whipple procedure
Obesity due to excess calories
DNR/Eliquis
Anticipated Discharge: 24 - 48 hours
Subjective/Interval History
-
Date of Service: September 21, 2023
Denies CP/SOB.
Objective Data
-
Labs:
Laboratory Results
09/21/23
06:23
WBC 14.6 H
Hgb 11.0 L
Hct 35.2 L
Plt Count 459 H
Sodium 133 L
Potassium 4.4
Chloride 102
Carbon Dioxide 22
BUN 18 H
Creatinine 1.1 H
Glucose 183 H
Calcium 9.1
Total Bilirubin 0.6
AST 13 L
ALT < 10
Alkaline Phosphatase 99
Vital Signs:
Vital Signs
Temp Pulse Resp BP Pulse Ox
99.0 F 123 20 122/67 93
09/21/23 03:19 09/21/23 03:46 09/21/23 03:19 09/21/23 03:46 09/21/23 03:19
[2023-09-21] MEDS: LASIX 40 MG IV ×2 (08:40→20:23)
[2023-09-21] MEDS: ELIQUIS 5 MG PO ×2 (08:45→20:22)
[2023-09-21] MEDS: NOVOLOG FLEXPEN-MODERATE RESISTANCE 3 UNITS SC ×2 (08:46→13:24)
--- NOTE | 2023-09-21 09:49 | VNURNOTE ---
Patient is current with [facility] since 08/16 w/SN/PT, will monitor progress and plan at discharge.
[2023-09-21 11:00] VITALS: BP 140/82
[2023-09-21 11:49] LABS: Glucose - Point of Care 241 mg/dl (70-99)
[2023-09-21] MEDS: TOPROL XL 50 MG PO ×2 (11:56→20:22)
--- NOTE | 2023-09-21 14:39 | CM ---
commodity manager reviewed patient's chart and met with patient and patient lives with spouse in a bilevel home, with 10 steps to enter and 5 steps to main floor and 5 steps to bedrooms, patient reports that she is independent with adl's and ambulation,
no dme. Patient is current with [facility]. Patient has a prescription plan and patient uses [facility].
PCP: Dr. Odell
Plan; Home with [facility].
[2023-09-21 15:00] VITALS: BP 135/83
[2023-09-21 16:50] LABS: Glucose - Point of Care 252 mg/dl (70-99)
[2023-09-21] MEDS: LOPRESSOR 5 MG IV (17:47)
[2023-09-21] MEDS: ROCEPHIN 1000 MG IV (17:54)
[2023-09-21] MEDS: STERILE WATER FOR INJECTION 10 ML IV (17:54)
[2023-09-21] MEDS: NOVOLOG FLEXPEN-MODERATE RESISTANCE 5 UNITS SC (17:56)
[2023-09-21 19:25] VITALS: BP 108/75
[2023-09-21 21:39] LABS: Glucose - Point of Care 200 mg/dl (70-99)
[2023-09-21 23:13] VITALS: BP 113/75
[2023-09-22] MEDS: NSS 500 IV (02:04)
[2023-09-22] MEDS: LOPRESSOR 2.5 MG IV (02:05)
[2023-09-22 03:28] VITALS: BP 98/62
[2023-09-22 05:33] VITALS: BMI 29.5
[2023-09-22 07:35] VITALS: BP 113/55
[2023-09-22 07:35] LABS: Glucose - Point of Care 206 mg/dl (70-99)
[2023-09-22] MEDS: TOPROL XL 50 MG PO ×2 (08:23→10:53)
[2023-09-22] MEDS: ELIQUIS 5 MG PO (08:23)
[2023-09-22 08:59] LABS: Glycohemoglobin (HgbA1c) 8.4 % (4.0-5.6)
[2023-09-22] MEDS: LASIX 40 MG IV ×2 (09:12→19:58)
[2023-09-22] MEDS: NOVOLOG FLEXPEN-MODERATE RESISTANCE 3 UNITS SC (09:13)
--- NOTE | 2023-09-22 09:49 | PN.CDI ---
CDI
- -
CDI:
Physician Documentation Request
Admit Date: 09/20/23 21:31
Dear Doctor Paola,
Patient admitted for acute heart failure and UTI.
Laboratory Tests
09/20/23
15:57
WBC 16.2 H
09/20/23
15:32 09/20/23
17:53 09/20/23
18:45
Pulse 111 123 119
09/20/23
13:26 09/20/23
17:53 09/20/23
19:45
Resp Rate 20
Please clarify which of the following most accurately describes the status of the patient's infection:
Sepsis, POA
- Systemic manifestations of infection, with 2 or more SIRS criteria which include:
- Fever >100.4 degrees F or hypothermia < 96.8 degrees F
- Leukocytosis - WBC > 12,000 or leukopenia - WBC < 4,000 or > 10% bands
- Tachycardia > 90 beats per minute
- Tachypnea - RR > 20 breaths per minute or PaCO2 , 32mmHg
Source: Merck Manual 2012
Localized Infection Only, Without Systemic Illness
- indicate the site/source, such as UTI etc.
Other
Use of terms such as suspected, likely, concern for, or probable (associated with a specific diagnosis that is being evaluated, monitored, or treated as if it exists) are acceptable and can be coded in the inpatient setting, when documented at the
time of discharge.
Thank you,
Nita Melendez RN, BSN
CDI Specialist
Available via [employer] text
Please use your independent medical judgment in providing your response.
--- NOTE | 2023-09-22 10:04 | W.PN.CD ---
Today's Communication / Plan
-
continue IV lasix
increase Toprol XL to 100mg bid
Impression / Plan
-
Acute on chronic HFpEF:
-recent echo 07/2023, normal EF 55-60%, mild to moderate , mild MS
-continue IV lasix 40mg IV bid, which requires intensive monitoring of labs and tele
AFIB, has been paroxysmal in past; now A fib with RVR
-had compliance issues with Toprol
-continue Eliquis 5mg bid
HTN:
-monitor on BB: stable
UTI:
-on ABX
-management per primary team
Physical Exam
Vital Signs/Labs
Vital Signs
Temp Pulse Resp BP Pulse Ox
97.5 F 96 18 113/55 97
09/22/23 07:35 09/22/23 08:23 09/22/23 07:35 09/22/23 08:23 09/22/23 07:35
09/21/23 09/22/23 09/23/23
06:59 06:59 06:59
Actual Weight 70.562 kg 69.57 kg
09/21/23 06:23
09/20/23
20:56
Thb-G-Cttilyoxfup Pept 06235
LAB Results
09/20/23
20:56
Troponin I < 0.012
Physical Exam
Constitutional: No acute distress and Comfortable
EENT: Moist mucous membranes
Cardiovascular: Pedal edema is absent, Rhythm/rate is irregular, JVD present and Systolic murmur present
Respiratory: Respiratory effort normal and Lungs clear to auscul.
GI: Soft, Distention absent and Flat
Neuro/Psych: Alert
Data Reviewed
-
Date of Service: September 22, 2023
EKG: Other (Tele: A fib 120s)
Labs: Labs Reviewed by me
--- NOTE | 2023-09-22 10:20 | W.PN.HOSP.TC ---
Today's Communication/Plan
-
see bold
Assessment / Plan
Assessment / Plan
Gen: NAD, Awake and alert
Eyes: EOMI, PERRLA, no scleral icterus.
Neck: supple.
CV: tachy, irreg/irreg, +S1/S2, no m/r/g.
Resp: CTAB anteriorly
Abd: +BS, soft, NT, ND
Skin: No rashes. no LE edema
Neuro: CN 2-12 intact, non-focal.
Psych: Normal mood and affect.
CT A/P: Moderate to large bilateral pleural effusions. Adjacent pulmonary parenchymal consolidation, likely compressive atelectasis. Minimal pericardial effusion. Postsurgical changes consistent with Whipple procedure. No focal mass or adenopathy.
No focal collection or abscess. No evidence of bowel obstruction. The appendix is not identified with certainty. No secondary signs of appendicitis. No obstructive uropathy. Probable small proteinaceous cyst at the anterior inferior margin of the
left kidney. Stable in size. Very subtle diminished stature is noted with trabecular sclerosis involving the superior endplate of L1, suspicious for subtle acute compression deformity. No hip fracture or dislocation. No periacetabular iliac fracture.
CXR: Moderate bilateral pleural effusions, left slightly greater than right. No significant vascular congestion. Limited evaluation of cardiac size, with the cardiac margin is obscured by pleural effusions. The upper lung zones are clear.
Moderate to large bilateral pleural effusions likely secondary to CHF exacerbation likely secondary to untreated A-fib with RVR:
-on admission, pt denied any symptoms but poor historian. O2 sat 93% RA from 98-100% previously
-IV fluids given in the ER
-CT abdomen pelvis and chest x-ray showed moderate to large bilateral pleural effusions without pulmonary edema
-proBNP 10,200
-Echo 08/14/23: EF 55-60%
-I/O's, daily weights
-cont IV Lasix
-cards following
-repeat CXR to assess pleural effusions
Atrial fibrillation with RVR:
-likely due to medication noncompliance
-cont BB (increased dose)/Eliquis
-cards following
Abdominal pain/leukocytosis:
-SIRS on admission
-h/o recent Klebsiella UTI
-UA shows slightly cloudy urine, +1 leukocyte esterase, 6-10 WBC
-UTI now ruled out as UCx with lactobacillus which is likely contaminant (usual vaginary lucy)
-stop abx
DM2 with diabetic neuropathy:
-not on antihyperglycemics at home
-cont SSI/accuchecks
-a1c 8.4%
-start farxiga and Lantus 10U HS
-Cont neurontin
Other problems:
h/o mild-mod
h/o DVT: cont Eliquis
Essential hypertension
CKD3b
Depression: cont Zoloft
Alzheimer's dementia: Cont Aricept
GERD: cont PPI
Hyperlipidemia: cont statin
Chronic anemia: Continue iron supplement
History of Whipple procedure
Obesity due to excess calories
DNR/Eliquis
Anticipated Discharge: 24 - 48 hours
Subjective/Interval History
-
Date of Service: September 22, 2023
Denies CP/SOB.
Objective Data
-
Labs:
Laboratory Results
09/22/23
10:02
Sodium Pending
Potassium Pending
Chloride Pending
Carbon Dioxide Pending
BUN Pending
Creatinine Pending
Glucose Pending
Calcium Pending
Vital Signs:
Vital Signs
Temp Pulse Resp BP Pulse Ox
97.5 F 96 18 113/55 97
09/22/23 07:35 09/22/23 08:23 09/22/23 07:35 09/22/23 08:23 09/22/23 07:35
I&O
09/21/23 09/22/23 09/23/23
06:59 06:59 06:59
Intake Total 1320 / 1320
Balance 1320 / 1320
[2023-09-22 10:51] VITALS: BP 104/65
[2023-09-22] MEDS: FARXIGA 10 MG PO (10:53)
[2023-09-22 11:10] LABS: % Basophils 0.4 % (0-2); % Eosinophils 0.1 % (0-6); % Immature Granulocytes 0.9 % (0-0.5); % Lymphocytes 9.9 % (20.5-51.1); % Monocytes 5.4 % (1.7-9.3); % Neutrophils 83.3 % (42.2-75.2); Absolute Basophils 0.1 10^3/uL (0-0.2); Absolute Immature Granulocytes 0.2 10^3/uL (0-0.05); Absolute Lymphocytes 1.7 10^3/uL (1.2-3.4); Absolute Monocytes 0.9 10^3/uL (0.1-0.6); Absolute Neutrophils 14.2 10^3/uL (1.4-6.5); Hematocrit 36.3 % (37.0-47.0); Hemoglobin 11.4 g/dL (12.0-16.0); Mean Corp Hgb Conc. 31.4 g/dL (33.0-37.0); Mean Corpuscular Hgb 25.1 pg (27.0-31.0); Mean Platelet Volume 9.3 fL (7.4-10.4); Nucleated Red Blood Cells % 0 %; Platelet Count 483 10^3/uL (130-400); Red Blood Cell Count 4.54 10^6/uL (4.20-5.40); Red Cell Dist. Width 14.9 % (11.5-14.5)
--- NOTE | 2023-09-22 11:24 | CM ---
Veronica will return home at discharge with [facility]. IV lasix to continue and repeat CXR ordered today.
Case Management will follow to coordinate discharge when medically ready.
[2023-09-22 11:36] LABS: Glucose - Point of Care 293 mg/dl (70-99)
[2023-09-22] MEDS: NOVOLOG FLEXPEN-MODERATE RESISTANCE 5 UNITS SC (12:18)
[2023-09-22 12:53] LABS: Blood Urea Nitrogen 26 mg/dl (7-17); Calcium 9.1 mg/dl (8.4-10.2); Carbon Dioxide 22 mmol/L (22-30); Chloride 97 mmol/L (98-107); Estimated Creatinine Clearance 23 ml/min; Glucose 230 mg/dl (70-99); Potassium 4.2 mmol/L (3.5-5.1); Sodium 133 mmol/L (135-145); eGFR 29.94
[2023-09-22 15:00] VITALS: BP 116/77
--- NOTE | 2023-09-22 15:07 | RR ---
A Rapid Response was called on this patient, please see Rapid Response form.
Patient's telemetry alarmed for pause. Patient found unresponsive sitting in chair. Rapid response called. Patient became responsive while being transferred into bed. Rapid response team to room. 10+ second pause confirmed on telemetry review.
Patient now in a-fib rate 70-90 and is alert and conversing with nursing staff. Primary nurse Cait in room.
[2023-09-22 15:13] LABS: Glucose - Point of Care 222 mg/dl (70-99)
[2023-09-22 16:55] LABS: Glucose - Point of Care 196 mg/dl (70-99)
--- NOTE | 2023-09-22 17:04 | W.PN.UPDATE ---
Update Note
Progress Note Update
Called to reevaluate patient as she had a 10-second pause on telemetry.
-The patient is pleasantly demented and fairly functional at home.
-She felt like she was about to pass out, but did not lose consciousness at the time of the pulse.
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
-Will hold metoprolol succinate and transfer to IVU today for monitoring over the weekend.
-Updated the patient's daughter (her POA) who states that they want to proceed with permanent pacemaker implantation.
[2023-09-22] MEDS: NOVOLOG FLEXPEN-MODERATE RESISTANCE 1 UNITS SC (17:40)
[2023-09-22] MEDS: ELIQUIS 2.5 MG PO (19:57)
[2023-09-22] MEDS: DESENEX/MITRAZOL/ZEASORB 1 APPLIC TOPICAL (19:58)
[2023-09-22 21:07] LABS: Glucose - Point of Care 206 mg/dl (70-99)
[2023-09-22] MEDS: LANTUS 0.100000000000000006 UNITS SC (21:32)
[2023-09-22 23:06] VITALS: BP 111/75
[2023-09-23 03:12] VITALS: BP 126/91
[2023-09-23 04:06] LABS: Hematocrit 37.6 % (37.0-47.0); Hemoglobin 12.1 g/dL (12.0-16.0); Mean Corp Hgb Conc. 32.2 g/dL (33.0-37.0); Mean Corpuscular Hgb 25.3 pg (27.0-31.0); Mean Corpuscular Volume 78.7 fL (81.0-99.0); Mean Platelet Volume 9.3 fL (7.4-10.4); Platelet Count 550 10^3/uL (130-400); Red Blood Cell Count 4.78 10^6/uL (4.20-5.40); Red Cell Dist. Width 14.8 % (11.5-14.5); White Blood Cell Count 17.1 10^3/uL (4.8-10.8)
[2023-09-23 04:29] LABS: Blood Urea Nitrogen 31 mg/dl (7-17); Calcium 9.3 mg/dl (8.4-10.2); Carbon Dioxide 23 mmol/L (22-30); Chloride 99 mmol/L (98-107); Estimated Creatinine Clearance 22 ml/min; Glucose 154 mg/dl (70-99); Potassium 4.4 mmol/L (3.5-5.1); Sodium 135 mmol/L (135-145); eGFR 27.96
[2023-09-23 06:00] VITALS: BMI 29.0
[2023-09-23 07:28] VITALS: BMI 29.0
[2023-09-23 07:29] VITALS: BP 135/88
[2023-09-23 08:58] LABS: Glucose - Point of Care 157 mg/dl (70-99)
[2023-09-23] MEDS: ELIQUIS 2.5 MG PO ×2 (09:19→20:11)
[2023-09-23] MEDS: LASIX 40 MG IV (09:21)
[2023-09-23] MEDS: FARXIGA 10 MG PO (09:21)
--- NOTE | 2023-09-23 09:48 | W.PN.CD ---
Addendum entered and electronically signed by Jorge Cano MD 09/23/23 14:05:
Patient seen and examined in collaboration with PER DIEM INTERPRETER; agree with below.
-Patient will undergo permanent pacemaker implantation on Monday.
-Will change to Lasix 40 mg PO daily; continue to monitor renal function.
Original Note:
Today's Communication / Plan
-
Hold metoprolol, follow telemetry
Pacemaker on Monday
Impression / Plan
-
Tachy-Bruce syndrome:
-10 second pause yesterday with near-syncope. Metoprolol held. Dr. Cano updated the patient's daughter (her POA) 09/22/23 who states that they want to proceed with permanent pacemaker implantation. The patient is pleasantly demented and fairly
functional at home.
-plan is for pacemaker Monday
Acute on chronic HFpEF:
-recent echo 07/2023, normal EF 55-60%, mild to moderate , mild MS
-CXR remains with moderate pleural effusions
-remains on IV diuresis, creatinine is climbing- monitor closely
AFIB, has been paroxysmal in past; now A fib with RVR
-metoprolol held for bradycardia/pause as noted, so HR's on fast side
-resume metoprolol after pacemaker
HTN:
-stable overall
-now off BB as above
-monitor
Recent UTI:
-abx stopped per primary team
Physical Exam
Vital Signs/Labs
Vital Signs
Temp Pulse Resp BP Pulse Ox
97.4 F 96 18 135/88 94
09/23/23 07:00 09/23/23 08:00 09/23/23 07:00 09/23/23 07:29 09/23/23 07:00
09/22/23 09/23/23 09/24/23
06:59 06:59 06:59
Actual Weight 69.57 kg
09/23/23 03:24
09/23/23 03:24
09/20/23
20:56
Wwn-J-Zruszfgjkmx Pept [id number]
LAB Results
09/20/23
20:56
Troponin I < 0.012
Physical Exam
Constitutional: No acute distress
EENT: Anicteric
Cardiovascular: Rhythm/rate is irregular
Respiratory: Respiratory effort normal
Neuro/Psych: Alert and Oriented (self)
Data Reviewed
-
Date of Service: September 23, 2023
X-Ray/CT/US/MRI/NUC/PET: Report Reviewed by me (CXR: Cardiomegaly with stable moderate size bilateral pleural effusions, not significantly changed when compared with the prior study)
Labs: Labs Reviewed by me
[2023-09-23] MEDS: NOVOLOG FLEXPEN-MODERATE RESISTANCE 1 UNITS SC ×2 (10:30→14:04)
--- NOTE | 2023-09-23 10:56 | W.PN.HOSP.TC ---
Today's Communication/Plan
-
Leukocytosis is persistent
Proceed with CT of the chest
Blood cultures x 2
If leukocytosis persisting no source of infection-May need ID evaluation
Assessment / Plan
Assessment / Plan
83-year-old female admitted because of abdominal pain found to have moderate to large bilateral pleural effusions and CHF.
CT A/P: Moderate to large bilateral pleural effusions. Adjacent pulmonary parenchymal consolidation, likely compressive atelectasis. Minimal pericardial effusion. Postsurgical changes consistent with Whipple procedure. No focal mass or adenopathy.
No focal collection or abscess. No evidence of bowel obstruction. The appendix is not identified with certainty. No secondary signs of appendicitis. No obstructive uropathy. Probable small proteinaceous cyst at the anterior inferior margin of the
left kidney. Stable in size. Very subtle diminished stature is noted with trabecular sclerosis involving the superior endplate of L1, suspicious for subtle acute compression deformity. No hip fracture or dislocation. No periacetabular iliac fracture.
CXR: Moderate bilateral pleural effusions, left slightly greater than right. No significant vascular congestion. Limited evaluation of cardiac size, with the cardiac margin is obscured by pleural effusions. The upper lung zones are clear.
#Moderate to large bilateral pleural effusions likely secondary to CHF exacerbation likely secondary to untreated A-fib with RVR:
-on admission, pt denied any symptoms but poor historian. O2 sat 93% RA from 98-100% previously
-IV fluids given in the ER
-CT abdomen pelvis and chest x-ray showed moderate to large bilateral pleural effusions without pulmonary edema
-proBNP 10,200
-Echo 08/14/23: EF 55-60%
-I/O's, daily weights
-cont IV Lasix
-cards following
-repeat CXR to assess pleural effusions-showed moderate bilateral pleural effusions
# Atrial fibrillation with RVR:
-likely due to medication noncompliance
-Heart rate-went bradycardic after increased dose of uyko-rhcvlpv-wnk on hold
-Eliquis-dose changed to 2.5 twice daily
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
-cards following leukocytosis-unclear reason
# Leukocytosis-persists. No clear source of infection
Will proceed with CT of the chest
Blood cultures x 2
May need ID evaluation if no clear source found and leukocytosis persists
#Abdominal pain/leukocytosis:
-SIRS on admission
-h/o recent Klebsiella UTI
-UA shows slightly cloudy urine, +1 leukocyte esterase, 6-10 WBC
-UTI now ruled out as UCx with lactobacillus which is likely contaminant (usual vaginal lucy)
-Off abx now
#DM2 with diabetic neuropathy:
-Not on antihyperglycemics at home
-cont SSI/accuchecks
-a1c 8.4%
-started farxiga and Lantus 10U HS
-Cont Neurontin
#h/o mild-mod
#h/o DVT: cont Eliquis
#Essential hypertension
#CKD3b
#Depression: cont Zoloft
#Alzheimer's dementia: Cont Aricept
#GERD: cont PPI
#Hyperlipidemia: cont statin
#Chronic anemia: Continue iron supplement
#History of Whipple procedure
#Obesity due to excess calories
#L1- subtle acute compression deformity.
#Low-density nodule in the left lobe of the thyroid 4.0 cm-OP USS
#DNR
# DVT prophylaxis-Eliquis
D/W RN
Anticipated Discharge: > 48 hours
Subjective/Interval History
-
Date of Service: September 23, 2023
Objective Data
-
Labs:
Laboratory Results
09/23/23
03:24
WBC 17.1 H
Hgb 12.1
Hct 37.6
Plt Count 550 H
Sodium 135
Potassium 4.4
Chloride 99
Carbon Dioxide 23
BUN 31 H
Creatinine 1.8 H
Glucose 154 H
Calcium 9.3
Vital Signs:
Vital Signs
Temp Pulse Resp BP Pulse Ox
97.4 F 96 18 135/88 94
09/23/23 07:00 09/23/23 08:00 09/23/23 07:00 09/23/23 07:29 09/23/23 07:00
I&O
09/22/23 09/23/23 09/24/23
06:59 06:59 06:59
Intake Total 1320 / 1320 1200 / 1200
Balance 1320 / 1320 1200 / 1200
[2023-09-23 12:02] VITALS: BP 119/79
[2023-09-23 12:55] LABS: Glucose - Point of Care 175 mg/dl (70-99)
[2023-09-23] MEDS: DESENEX/MITRAZOL/ZEASORB 1 APPLIC TOPICAL ×2 (14:03→20:11)
[2023-09-23 16:11] VITALS: BP 109/78
[2023-09-23 16:44] LABS: Glucose - Point of Care 213 mg/dl (70-99)
[2023-09-23] MEDS: NOVOLOG FLEXPEN-MODERATE RESISTANCE 3 UNITS SC (17:47)
--- NOTE | 2023-09-23 18:11 | PTCARENOTE ---
Pt not oriented to person place or time but very pleasant and easily redirected. Medsitter surveillance in place as well as bed and chair alarms. Pt walks with rambling gait but is steady. Pt has a very poor appetite. Telemetry shows atrial fib at a
rate @90-130 with rare burst to 160 which pt states she can feel. No pauses seen. Attempted to explain pacemaker to pt, she states she is 'not sure about this'.
[2023-09-23 20:06] VITALS: BP 110/76
[2023-09-23 21:41] LABS: Glucose - Point of Care 158 mg/dl (70-99)
[2023-09-23] MEDS: LANTUS 0.100000000000000006 UNITS SC (22:20)
[2023-09-23] MEDS: ARICEPT 10 MG PO (22:20)
[2023-09-23 22:40] VITALS: BP 115/88
[2023-09-24 03:11] VITALS: BP 106/66
[2023-09-24 03:37] LABS: Hematocrit 34.9 % (37.0-47.0); Hemoglobin 11.3 g/dL (12.0-16.0); Mean Corp Hgb Conc. 32.4 g/dL (33.0-37.0); Mean Corpuscular Hgb 24.8 pg (27.0-31.0); Mean Corpuscular Volume 76.7 fL (81.0-99.0); Mean Platelet Volume 9.3 fL (7.4-10.4); Platelet Count 553 10^3/uL (130-400); Red Blood Cell Count 4.55 10^6/uL (4.20-5.40); Red Cell Dist. Width 14.8 % (11.5-14.5); White Blood Cell Count 13.6 10^3/uL (4.8-10.8)
[2023-09-24 04:02] LABS: Blood Urea Nitrogen 36 mg/dl (7-17); Calcium 9.1 mg/dl (8.4-10.2); Carbon Dioxide 23 mmol/L (22-30); Chloride 99 mmol/L (98-107); Estimated Creatinine Clearance 21 ml/min; Glucose 122 mg/dl (70-99); Potassium 3.8 mmol/L (3.5-5.1); Sodium 134 mmol/L (135-145); eGFR 27.96
[2023-09-24 06:00] VITALS: BMI 28.8
[2023-09-24 07:40] VITALS: BP 125/69
[2023-09-24 07:46] LABS: Glucose - Point of Care 129 mg/dl (70-99)
[2023-09-24] MEDS: PROTONIX 40 MG PO (07:57)
[2023-09-24] MEDS: ZOLOFT 50 MG PO (07:57)
[2023-09-24] MEDS: ELIQUIS 2.5 MG PO (07:57)
[2023-09-24] MEDS: FARXIGA 10 MG PO (07:57)
[2023-09-24] MEDS: LASIX 40 MG PO (07:57)
[2023-09-24] MEDS: NOVOLOG FLEXPEN-MODERATE RESISTANCE SC (07:57)
[2023-09-24] MEDS: ZOFRAN 4 MG IV (08:42)
--- NOTE | 2023-09-24 08:53 | CON.ID ---
Addendum entered and electronically signed by Michell Barth MD 09/24/23 09:38:
Nursing reports minimal food intake - late stage dementia suspected
Not constipation on the recent CT abdomen
Minimal stool output
Original Note:
Consultation
-
Date/Time Consultation Requested: 09/24/23 7:45
Date/Time Consultation Performed: 09/24/23 9:08
Requesting Provider: Dr Vanegas
Performing Provider: Dr Barth
Reason for Consultation: leucocytosis
Chief Complaint / Past History
Chief Complaint
abdominal pain
History of Present Illness
Ms Logan is an 83 year old female with history of CKD3, DM2, alzheimers, recent UTI due to klebsiella who presented here for abdominal pain. Patient is poor historian. Daughter denies any fevers, chills, cough, chest pain, shortness of breath,
nausea or vomiting, diarrhea or urinary symptoms
Since arrival here she has been afebrile, bp stable, declining leukocytosis now 13 from 16 on arrival, hgb 11, plt 553, cr 1.8, a1c 8.4, CT chest: large bilateral pleural effusions left greater than right. There is adjacent atelectasis, parenchymal
consolidation and minimal pericardial effusion. 08/14/23 echo: ef 55-60%, ct a/p without lesions, had two days of ceftriaxone and azithromycin. Continues to report some mild abdominal pain
Past History
Additional Past Medical History:
paroxysmal atrial fibrillation diagnosed in July, recent Klebsiella UTI, prior DVT on Eliquis, hypertension, type 2 diabetes, diabetic neuropathy, CKD 3B, depression, Alzheimer's dementia, GERD
Additional Past Surgical History:
Appendectomy, Gynecological (Hysterectomy), Orthopedic and Other (Whipple)
Allergy History:
codeine Allergy (Verified 09/20/23 13:27)
nausea and vomiting/DIARRHEA
diphenhydramine Allergy (Verified 09/20/23 13:27)
shakes and tremors/SWEATING
Medications Reviewed: Yes
Social History
Tobacco: Non-Smoker
Alcohol: None
Drug: None
Family History
Family History: Not Pertinent
Review of Systems
Review of Systems
General: Negative Fever or Chills
All systems: All other systems were reviewed and were negative
Vital Signs
Temp Pulse Resp BP Pulse Ox
97.3 F 138 22 125/69 96
09/24/23 07:48 09/24/23 07:40 09/24/23 07:48 09/24/23 07:40 09/24/23 07:50
Physical Exam
Physical Exam
Constitutional: No Acute Distress and Chronically Ill
Cardiovascular: Regular Rate and S1/S2; Negative Murmur or Rub
Pulmonary: Clear and Symmetric; Negative Wheezes, Rales or Rhonchi
Gastrointestinal: Soft, Non Tender, Non Distended and Normal Bowel Sounds
Genito-Urinary: Negative Suprapubic Tenderness
Skin: Warm and Dry; Negative Rash or Jaundice
Neurological: Awake and Alert
Lab / Diagnostic Study Results
09/24/23 03:18
09/24/23 03:18
Abs Immat Gran (auto) 0.2 10^3/uL (0-0.05) H 09/22/23 11:00
Absolute Neuts (auto) 14.2 10^3/uL (1.4-6.5) H 09/22/23 11:00
Absolute Lymphs (auto) 1.7 10^3/uL (1.2-3.4) 09/22/23 11:00
Absolute Monos (auto) 0.9 10^3/uL (0.1-0.6) H 09/22/23 11:00
Absolute Basos (auto) 0.1 10^3/uL (0-0.2) 09/22/23 11:00
Immature Gran % 0.9 % (0-0.5) H 09/22/23 11:00
Neutrophils % 83.3 % (42.2-75.2) H 09/22/23 11:00
Lymphocytes % 9.9 % (20.5-51.1) L 09/22/23 11:00
Monocytes % 5.4 % (1.7-9.3) 09/22/23 11:00
Eosinophils % 0.1 % (0-6) 09/22/23 11:00
Basophils % 0.4 % (0-2) 09/22/23 11:00
Ur Squamous Epith Cells 16-20 /LPF (Few) 09/20/23 17:51
Microbiology Results
Micro:
09/23/23 12:56 Blood Culture - Pending
Blood/Venous
09/23/23 12:44 Blood Culture - Pending
Blood/Venous
09/20/23 17:51 Urine Culture - Final
Urine Lactobacillus species
Assessment / Plan
Leukocytosis - improving
JARON - progressive
- unclear to me if patient had BM; nursing to please record
- demarginalization on the differential with large bilateral pleural effusions; does not appear to have pneumonia
- ua minimal pyuria, 100 K lactobacillus on the culture
- plan amoxicillin x3 days
- blood cultures x2 in progress, different sticks; would follow to 48 hrs
- check covid ag
- procal/inflammatory markers not helpful with JARON
- follow clinically
--- NOTE | 2023-09-24 09:41 | W.PN.HOSP.TC ---
Today's Communication/Plan
-
ID and Pulm eval given white count and pleural effusions persisting
? Thoracentesis
Assessment / Plan
Assessment / Plan
83-year-old female admitted because of abdominal pain found to have moderate to large bilateral pleural effusions and CHF.
CT A/P: Moderate to large bilateral pleural effusions. Adjacent pulmonary parenchymal consolidation, likely compressive atelectasis. Minimal pericardial effusion. Postsurgical changes consistent with Whipple procedure. No focal mass or adenopathy.
No focal collection or abscess. No evidence of bowel obstruction. The appendix is not identified with certainty. No secondary signs of appendicitis. No obstructive uropathy. Probable small proteinaceous cyst at the anterior inferior margin of the
left kidney. Stable in size. Very subtle diminished stature is noted with trabecular sclerosis involving the superior endplate of L1, suspicious for subtle acute compression deformity. No hip fracture or dislocation. No periacetabular iliac fracture.
CXR: Moderate bilateral pleural effusions, left slightly greater than right. No significant vascular congestion. Limited evaluation of cardiac size, with the cardiac margin is obscured by pleural effusions. The upper lung zones are clear.
On examination denies any complaints -per nursing she was slightly nauseous earlier today
Awake and alert
Cardiovascular system irregular heart rate, sm aa
Chest decreased breath sounds bilateral bases
No pedal edema
#Moderate to large bilateral pleural effusions likely secondary to CHF exacerbation likely secondary to untreated A-fib with RVR:
-on admission, pt denied any symptoms but poor historian. O2 sat 93% RA from 98-100% previously
-IV fluids given in the ER, then stopped
-CT abdomen pelvis and chest x-ray showed moderate to large bilateral pleural effusions without pulmonary edema
-proBNP 10,200
-Echo 08/14/23: EF 55-60%
-I/O's, daily weights
-cont IV Lasix
-cards following
# Atrial fibrillation with RVR:
-likely due to medication noncompliance
-Heart rate-went bradycardic after increased dose of [id number] on hold
-Eliquis-dose changed to 2.5 twice daily
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
-cards following
# Leukocytosis-persists. No clear source of infection
CT of the chest with bilateral effusions left greater than right with adjacent atelectasis, parenchymal consolidation with minimal pericardial fusion.
Blood cultures x 2
Since patient is going for procedure I will request ID to kindly evaluate
Also request pulmonary for pleural effusions.
May need interventional radiology to do thoracentesis
#Abdominal pain/leukocytosis:
-SIRS on admission
-h/o recent Klebsiella UTI
-UA shows slightly cloudy urine, +1 leukocyte esterase, 6-10 WBC
-UTI now ruled out as UCx with lactobacillus which is likely contaminant (usual vaginal lucy)
-Off abx now
#DM2 with diabetic neuropathy:
-Not on antihyperglycemics at home
-cont SSI/accuchecks
-a1c 8.4%
-started Farxiga and Lantus 10U HS
-Cont Neurontin
#h/o mild-mod
#h/o DVT: cont Eliquis
#Essential hypertension
#[id number] stable
#Depression: cont Zoloft
#Alzheimer's dementia: Cont Aricept
#GERD: cont PPI
#Hyperlipidemia: cont statin
#Chronic anemia: Continue iron supplement
#History of Whipple procedure
#Obesity due to excess calories
#L1- subtle acute compression deformity.
#Low-density nodule in the left lobe of the thyroid 4.0 cm-OP USS
#DNR
#DVT xglgwnglvkc-Ektpdvm-Uuf be held tonight patient going for pacemaker tomorrow
D/W RN
Called patient's no answer patient's daughter Julia Craig is flying in today. Finally able to get in touch with Kwame Logan patient's grandson listed as primary contact. He stated that his twin boys are admitted with pneumonia and pleural
effusions. Updated plan of care.
time spent 51 min
Anticipated Discharge: > 48 hours
Subjective/Interval History
-
Date of Service: September 24, 2023
Objective Data
-
Labs:
Laboratory Results
09/24/23
03:18
WBC 13.6 H
Hgb 11.3 L
Hct 34.9 L
Plt Count 553 H
Sodium 134 L
Potassium 3.8
Chloride 99
Carbon Dioxide 23
BUN 36 H
Creatinine 1.8 H
Glucose 122 H
Calcium 9.1
Vital Signs:
Vital Signs
Temp Pulse Resp BP Pulse Ox
97.3 F 138 22 125/69 96
09/24/23 07:48 09/24/23 07:40 09/24/23 07:48 09/24/23 07:40 09/24/23 07:50
I&O
09/23/23 09/24/23 09/25/23
06:59 06:59 06:59
Intake Total 1200 / 1200 340 / 340
Balance 1200 / 1200 340 / 340
[2023-09-24 10:21] LABS: COVID-19 Antigen Negative (Negative)
[2023-09-24 11:27] VITALS: BP 117/78
[2023-09-24 12:52] LABS: Glucose - Point of Care 182 mg/dl (70-99)
[2023-09-24] MEDS: DESENEX/MITRAZOL/ZEASORB 1 APPLIC TOPICAL ×2 (12:55→20:52)
[2023-09-24] MEDS: NOVOLOG FLEXPEN-MODERATE RESISTANCE 1 UNITS SC ×2 (12:55→17:25)
[2023-09-24] MEDS: SENOKOT 17.1999999999999993 MG PO ×2 (12:58→20:47)
[2023-09-24] MEDS: MILK OF MAGNESIA 30 ML PO (12:58)
[2023-09-24] MEDS: MIRALAX PO (13:06)
--- NOTE | 2023-09-24 14:58 | PTOTSP ---
Speech Therapy
Presentation: Patient's speech and language appeared to be WNL during conversation. Patient is oriented to self and pleasantly confused (dementia dx).
08/15/23 VSE: regular consistency solids and thin liquids with medications administered whole in puree or with thin liquids.
Swallowing Function: Patient was observed with several bites of cracker and sips of thin liquids in which patient appeared to tolerate as she did not exhibit any overt clinical s/sx of aspiration or difficulty with mastication/ manipulation. Patient
denied any dysphagia complaints.
Per RN, patient has been refusing PO medications (spitting them out) when administered.
Recommendations:
1) Continuation of regular consistency solids and thin liquids
2) Aspiration and reflux precautions
3) Medications as tolerated
Plan: ELECTRICAL INSTRUMENT TECHNICIAN will sign off at this time as she appears to be demonstrating her baseline function in regard to speech pathology. Please re consult if clinically indicated.
--- NOTE | 2023-09-24 15:04 | CON.PUL ---
Consultation
Consultation Request
Date/Time Consultation Requested: 09/24/2023
Date/Time Consultation Performed: 09/24/2023
Requesting Provider: Dr. Vanegas
Performing Provider: Dr. Martin Travis
Reason for Consultation: Pleural effusion
Medical History
-
History of Present Illness:
83-year-old woman with multiple medical problems including newly diagnosed paroxysmal atrial fibrillation in July, still UTI July 2023, prior DVT on chronic anticoagulation, hypertension, type 2 diabetes, diabetic neuropathy, Alzheimer's dementia,
GERD who presented with decreased oral intake for the past 5 days. Patient is unable to provide history.
She was complaining of abdominal pain on admission.
She was treated for heart failure exacerbation.
Given persistent bilateral pleural effusion we were consulted on 09/24/2023 for evaluation.
Past Medical History
Past Medical History: Other (See assessment and plan section)
Family History
Family History: Reviewed & Not Pertinent
Allergies / Home Medications
Allergies
Allergy/AdvReac Type Severity Reaction Status Date / Time
codeine Allergy nausea and Verified 09/20/23 13:27
vomiting/DIARRHEA
diphenhydramine Allergy shakes and Verified 09/20/23 13:27
tremors/SWEATING
Home Medications
�Medication �Instructions �Recorded �Confirmed �Last Taken �Type
ferrous sulfate 325 mg (65 mg 325 mg PO NOON Supplement #30 tabs 06/21/21 09/20/23 Unknown Rx
iron) tablet (FeroSul)
donepezil 10 mg tablet 10 mg PO HS cognition/memory 08/12/23 09/20/23 Unknown History
gabapentin 300 mg capsule 300 mg PO BID Pain 08/12/23 09/20/23 Unknown History
apixaban 5 mg tablet (Eliquis) 5 mg PO BID Blood Clot 08/16/23 09/20/23 Unknown Rx
Prevention/Tx #60 tabs
simvastatin 40 mg tablet 40 mg PO QPM High cholesterol #30 08/16/23 09/20/23 Unknown Rx
tabs
sertraline 50 mg tablet 50 mg PO DAILY depression/anxiety 09/20/23 09/20/23 Unknown History
aspirin 81 mg chewable tablet 81 mg PO DAILY Blood Clot 09/21/23 09/20/23 Unknown History
(Children's Aspirin) Prevention/Tx
metoprolol succinate 50 mg 50 mg PO BID Blood Pressure 09/21/23 09/20/23 Unknown History
tablet,extended release 24 hr
pantoprazole 40 mg tablet,delayed 40 mg PO DAILY Gastrointestinal 09/21/23 09/20/23 Unknown History
release Issue
Review of Systems
-
History Source: Patient
All other systems: Negative unless noted
EENT: No Symptoms
Respiratory: No Symptoms
Cardiac: No Symptoms
Vitals / Labs / Diagnostic Testing
Vital Signs
Temp Pulse Resp BP Pulse Ox
97.5 F 137 20 117/78 96
09/24/23 11:29 09/24/23 11:27 09/24/23 11:29 09/24/23 11:27 09/24/23 11:29
Lab Data
09/24/23 03:18
09/24/23 03:18
Microbiology
09/23/23 12:56 Blood/Venous Blood Culture - Preliminary
No Growth in 24 hours- Final report to follow
09/23/23 12:44 Blood/Venous Blood Culture - Preliminary
No Growth in 24 hours- Final report to follow
09/20/23 17:51 Urine Urine Culture - Final
Lactobacillus species
Diagnostic Testing:
Physical Exam
-
HEENT: Normocephalic
Cardiovascular: S1/S2
Respiratory: Clear, Non-Labored Respirations and Other (Decreased breath sounds in bases)
GI: Soft and Non Distended
Neurology: Awake and Alert
Skin: Warm
General: Respiratory Distress (n), Comfortable and Other (Able to speak in full sentences)
Assessment
-
83-year-old woman with multiple medical problems including dementia. Poor historian. [facility]. Found to have signs and symptoms suggestive of heart failure. Tachybradycardia syndrome. She was diuresed.
Eventually creatinine increased. Despite diuresis and her weight trending lower she has persistent bilateral pleural effusions of moderate size. We were consulted for evaluation.
Bilateral pleural effusion
Acute on chronic heart failure with preserved ejection fraction-EF 50 to 60%. Mild to moderate AAS, mild MS.
Weight trending lower
Tachybradycardia syndrome-for pacemaker placement on 09/25/2023
Atrial fibrillation with rapid ventricular response
Leukocytosis: Improving acute kidney injury
Hypoalbuminemia
Conditions present prior admission:
Hospital discharge 08/16/2023
Paroxysmal atrial fibrillation diagnosed 07/2023
History of Klebsiella UTI 07/2023
Mild to moderate aortic stenosis on echocardiogram
History of DVT
Hypertension
Type 2 diabetes
Diabetes neuropathy
Chronic kidney disease stage IIIb
Depression
Hypersomnia dementia
GERD
Assessment and plan:
Consulted for moderate bilateral pleural effusions on imaging despite diuresis on 09/24/2023.
Patient currently on room air.
Denies any complaints
Does not appear toxic
Very comfortable sitting out of bed.
Lung exam relatively clear..
Patient has dementia, unable to provide any history.
-
Patient admitted with heart failure: Diuresed and her weight is trending lower. Creatinine is trending higher. Diuresis now on hold.
-
On CAT scan of the chest On 09/23/2023 shows bilateral pleural effusion left greater than right with compressive atelectasis.
I doubt infectious etiology.
Possibly multifactorial: Hypoalbuminemia/recovering from volume overload with the lack on recovery.
I will obtain a TSH.
Her liver does not appear cirrhotic.
-
Patient has a low albumin level that may be contributing to the slow recovery.
Continue nutritional support.
-
no indication for antibiotics from the pulmonary perspective.
-
Since this patient has advanced admission, she is asymptomatic, there is no signs of infection. I favor more conservative management.
I was not able to locate family members at this point.
I would let her obtain her pacemaker tomorrow and then discuss with family whether we would like more aggressive evaluation.
Currently she seems to be asymptomatic without signs of infection.
Observe off antibiotics
If there is signs of infection and worsening leukocytosis may proceed with thoracentesis.
If there is no signs of infection can observe unless family members decide to proceed with aggressive care. At that time, then thoracentesis would be arranged, if there is exudative then further evaluation might be necessary including connective
tissue disease evaluation etc.
-
Patient is going for pacemaker placement on Monday per cardiology.
-
Will continue to follow
[2023-09-24 16:10] VITALS: BP 138/88
--- NOTE | 2023-09-24 16:15 | W.PN.CD ---
Today's Communication / Plan
-
-10 second pause on 09/22/2023 with near-syncope.
-Patient's daughter (her POA) states that they want to proceed with permanent pacemaker implantation.
-The patient is pleasantly demented and fairly functional at home.
-Plan is for pacemaker tomorrow; n.p.o. after midnight.
-On Eliquis; will hold tonight in anticipation for pacemaker implantation tomorrow.
-Resume metoprolol after pacemaker implantation.
Disposition: Patient with advanced dementia (but completely lucid and relatively functional); does not appear that she will be safe for home, especially after undergoing pacemaker implantation with tachycardia-bradycardia syndrome as it appears that
the patient was not compliant with medications at home due to her dementia (family would find food in her bra).
Impression / Plan
-
Tachy-Bruce syndrome:
-10 second pause on 09/22/2023 with near-syncope.
-Patient's daughter (her POA) states that they want to proceed with permanent pacemaker implantation.
-The patient is pleasantly demented and fairly functional at home.
-Plan is for pacemaker tomorrow; n.p.o. after midnight.
Acute on chronic HFpEF:
-recent echo 07/2023, normal EF 55-60%, mild to moderate , mild MS
-CXR remains with moderate pleural effusions
-Now transitioned to Lasix 40 mg PO daily; continue.
-On Eliquis; will hold tonight in anticipation for pacemaker implantation tomorrow.
PAF with RVR:
-Metoprolol held over the weekend for bradycardia/pause as noted above, so heart rate is elevated--which is expected.
-Resume metoprolol after pacemaker implantation.
HTN:
-Controlled/stable
Recent UTI:
-abx stopped per primary team
Disposition: Patient with advanced dementia (but completely lucid and relatively functional); does not appear that she will be safe for home, especially after undergoing pacemaker implantation with tachycardia-bradycardia syndrome as it appears that
the patient was not compliant with medications at home due to her dementia (family would find food in her bra).
Physical Exam
Vital Signs/Labs
Vital Signs
Temp Pulse Resp BP Pulse Ox
97.4 F 138 20 138/88 96
09/24/23 16:13 09/24/23 16:10 09/24/23 16:13 09/24/23 16:10 09/24/23 16:13
09/23/23 09/24/23 09/25/23
06:59 06:59 06:59
Actual Weight 68.4 kg 67.9 kg
09/24/23 03:18
09/24/23 03:18
09/20/23
20:56
Ebk-P-Gbakytzaxke Pept [id number]
Physical Exam
Constitutional: No acute distress
EENT: Anicteric
Cardiovascular: Pedal edema is absent, Systolic murmur absent, Rhythm/rate is irregular (Tachycardic) and S1S2 is normal
Respiratory: Respiratory effort normal and Lungs clear to auscul.
GI: Soft
Neuro/Psych: Alert
Other: Skin (Warm, dry, intact)
Data Reviewed
-
Date of Service: September 24, 2023
EKG: Tracing Personally Visualized and interpreted (Telemetry: A-fib with RVR)
Medical Tests (PFT, Pathology etc): Discussed with Nurse
Labs: Labs Reviewed by me
[2023-09-24 17:20] LABS: Glucose - Point of Care 153 mg/dl (70-99)
--- NOTE | 2023-09-24 18:20 | PTCARENOTE ---
Telemetry shows uncontrolled atrial fib with rates of 110-130 at rest and up to 180's with minimal activity. Pt reports feeling unwell at higher rates, aike aware, metoprolol remains on hold until after pacemaker is placed.
Pt pleasant but not oriented to place, time or person. Pt easily redirected although she removes telemetry device and turns off medsitter machine . Pt refuses and or spits out medications. Pt was nauseous @08:50 which resolved after zofran. Pt
eating only 5-10% of any meal, no BM recorded in the last 4 days and pt refused all bowel medications offered today. This RN spoke with pts daughter Julia Craig who is POA, she will be here on 09/24. Pt seen by pulmonary consult , plan for
pacemaker on 09/24.
[2023-09-24 20:43] VITALS: BP 144/83
[2023-09-24] MEDS: COLACE 100 MG PO (20:46)
[2023-09-24 22:07] LABS: Glucose - Point of Care 128 mg/dl (70-99)
[2023-09-24 22:24] VITALS: BP 121/74
[2023-09-24] MEDS: ARICEPT 10 MG PO (22:26)
[2023-09-24] MEDS: LANTUS 0.100000000000000006 UNITS SC (22:26)
[2023-09-25] VITALS (12 sets, daily range): BP systolic 93–147; BP diastolic 66–125
--- NOTE | 2023-09-25 00:53 | PTCARENOTE ---
Patient's daughter and visited for most of the evening. Patient denies any complaints of pain or discomfort. Made aware she is NPO after mdn for a pacer, she stated 'I don't want a pacemaker'. Upper chest and back wiped with Chlorhexidine
wipes at HS. Remains in A-fib on the monitor.
[2023-09-25 04:28] LABS: Blood Urea Nitrogen 37 mg/dl (7-17); Carbon Dioxide 26 mmol/L (22-30); Chloride 99 mmol/L (98-107); Estimated Creatinine Clearance 20 ml/min; Glucose 91 mg/dl (70-99); Potassium 3.6 mmol/L (3.5-5.1); Sodium 136 mmol/L (135-145)
[2023-09-25 04:44] LABS: Hematocrit 33.2 % (37.0-47.0); Hemoglobin 10.3 g/dL (12.0-16.0); Mean Corpuscular Hgb 24.8 pg (27.0-31.0); Mean Corpuscular Volume 79.8 fL (81.0-99.0); Mean Platelet Volume 9.4 fL (7.4-10.4); Platelet Count 451 10^3/uL (130-400); Red Blood Cell Count 4.16 10^6/uL (4.20-5.40); Red Cell Dist. Width 14.7 % (11.5-14.5); White Blood Cell Count 9.8 10^3/uL (4.8-10.8)
[2023-09-25 04:59] LABS: TSH 2.07 uIU/ml (0.47-4.68)
[2023-09-25 07:27] LABS: Glucose - Point of Care 85 mg/dl (70-99)
[2023-09-25] MEDS: NOVOLOG FLEXPEN-MODERATE RESISTANCE SC ×3 (07:28→16:10)
--- NOTE | 2023-09-25 08:00 | PTCARENOTE ---
Assumed care of patient at 0645.
Assessed patient and documented in shift assessment. Patient is pleasantly confused, easily redirectable. Does not know where she is nor what is going on. Assisted patient to the bathroom. When OOB and ambulating, HR to 160-180's. Patient
asymptomatic.
--- NOTE | 2023-09-25 09:05 | W.PN.PUL3 ---
Today's Communication / Plan
-
NPO for PPM today
Telemetry
Replete K>4, Mg>2
MAP>65
Heart rate <110
Encourage IS
Observe off ABx unless pt spikes fever
Pt breathing comfortably, no need for thora at this juncture
Assessment
-
83-year-old woman with multiple medical problems including dementia. Poor historian. [facility] Found to have signs and symptoms suggestive of heart failure. Tachybradycardia syndrome. She was diuresed.
Eventually creatinine increased. Despite diuresis and her weight trending lower she has persistent bilateral pleural effusions of moderate size. We were consulted for evaluation.
Bilateral pleural effusion
Acute on chronic heart failure with preserved ejection fraction-EF 50 to 60%. Mild to moderate AAS, mild MS.
Tachybradycardia syndrome with extended sinus pauses of 10 second pause and near syncopal - she is for pacemaker placement today (09/25/2023)
Atrial fibrillation with rapid ventricular response
Leukocytosis: Improving
Acute kidney injury
Hypoalbuminemia
Conditions present prior admission:
Hospital discharge 08/16/2023
Paroxysmal atrial fibrillation diagnosed 07/2023
History of Klebsiella UTI 07/2023
Mild to moderate aortic stenosis on echocardiogram
History of DVT
Hypertension
Type 2 diabetes
Diabetes neuropathy
Chronic kidney disease stage IIIb
Depression
Hypersomnia dementia
GERD
Assessment and plan:
Consulted for moderate bilateral pleural effusions on imaging despite diuresis on 09/24/2023.
Patient currently on room air.
Denies any complaints
Does not appear toxic
Very comfortable lying in bed.
Lung exam relatively clear.
Patient has dementia, unable to provide any history.
-
Patient admitted with heart failure: Diuresed and her weight is trending lower. Creatinine trended higher - now on PO lasix 40mg daily since 09/23
-
On CT scan of the chest On 09/23/2023 shows bilateral pleural effusion left greater than right with compressive atelectasis.
I doubt infectious etiology.
Possibly multifactorial: Hypoalbuminemia/recovering from volume overload with the lack on recovery.
TSH WNL at 2.07
Her liver does not appear cirrhotic.
-
Patient has a low albumin level that may be contributing to the slow recovery.
Continue nutritional support.
-
No indication for antibiotics from the pulmonary perspective unless she spikes a fever
-
Since this patient has advanced dementia, and is asymptomatic with no signs of infection. I favor more conservative management.
Daughter has consented for pacemaker
Currently she seems to be asymptomatic without signs of infection.
Observe off antibiotics
If there is signs of infection and worsening leukocytosis may proceed with thoracentesis.
If there is no signs of infection can observe unless family members decide to proceed with aggressive care. At that time, then thoracentesis would be arranged, if there is exudative then further evaluation might be necessary including connective
tissue disease evaluation etc.
-
Patient is going for pacemaker placement today per cardiology.
-
Will continue to follow
Subjective Data
-
Date of Service:
Date of Service: September 25, 2023
Chief Complaint: Pulmonary Follow Up
Subjective:
Seen this AM. Daughter at bedside. All questions were answered. Pt is in NAD, on room air breathing comfortably. HR 118, BP 133/67. Pt says she 'feels fine.' Eager to go home. No overnight events reported. Denies GUZMÁN, CP, abd pain, SOB, f/c.
Review of Systems
General: Other (negative unless mentioned above)
Objective Data
Data Reviewed
Vital Signs / I&O / Oxygen:
Vital Signs
Temp Pulse Resp BP Pulse Ox
98 F 109 18 143/86 97
09/25/23 03:09 09/25/23 09:46 09/25/23 03:09 09/25/23 09:46 09/25/23 03:09
Intake and Output
09/24/23 09/25/23 09/26/23
06:59 06:59 06:59
Intake Total 340 / 340 600 / 600
Balance 340 / 340 600 / 600
SaO2 97
Nasal Cannula flow liters per 2
minute
Physical Exam
General: Respiratory Distress (negative) and Comfortable
HEENT: Normocephalic and Anicteric
Cardiovascular: Irregular Rhythm, Peripheral Edema (negative) and Other (Tachycardic)
Respiratory: Clear, Wheeze (negative), Crackles (negative), Rhonchi (negative) and Accessory Resp Muscle Use (negative)
GI: Soft, Non Distended, Non Tender and Normal Bowel Sounds
Neurology: Awake and Alert
Skin: Warm and Dry
Labs/Micro/Reports
Lab Data
09/25/23 04:16
09/25/23 03:20
Microbiology
09/23/23 12:56 Blood/Venous Blood Culture - Preliminary
No Growth in 24 hours- Final report to follow
09/23/23 12:44 Blood/Venous Blood Culture - Preliminary
No Growth in 24 hours- Final report to follow
[2023-09-25 09:13] LABS: Glucose - Point of Care 79 mg/dl (70-99)
--- NOTE | 2023-09-25 09:30 | W.PN.ID1 ---
Date of Service
Date of Service: September 25, 2023
Today's Communication
leukocyotsis has resolved without antibiotics
ID service will no longer actively follow this patient please recall for further questions
Assessment / Plan
Leukocytosis - resolved
JARON
- leukocyotsis has resolved without antibiotics
- note plans for pacemaker
ID service will no longer actively follow this patient please recall for further questions
Chief Complaint
-: Leukocytosis
Subjective / Review of Systems
afebrile
BP stable
without leukcytosis
cr small increase
blood cultures no growth to date
Vital Signs / Physical Exam
Vital Signs
Vital Signs
Temp Pulse Resp BP Pulse Ox
98 F 117 18 143/86 97
09/25/23 03:09 09/25/23 07:22 09/25/23 03:09 09/25/23 07:22 09/25/23 03:09
Physical Exam
Constitutional: No Acute Distress
Cardiovascular: Regular Rate and S1/S2; Negative Murmur or Rub
Pulmonary: Clear and Symmetric; Negative Wheezes or Rales
Gastrointestinal: Soft, Non Tender, Non Distended and Normal Bowel Sounds
Skin: Warm and Dry; Negative Rash or Jaundice
Objective Data
Lab Data
Lab Results
09/25/23 04:16
09/25/23 03:20
Estimated Creat Clear 20 ml/min 09/25/23 03:20
Total Bilirubin 0.6 mg/dl (0.2-1.3) 09/21/23 06:23
AST 13 U/L (14-36) L 09/21/23 06:23
ALT < 10 U/L (0-35) 09/21/23 06:23
Alkaline Phosphatase 99 U/L (38-126) 09/21/23 06:23
Most recent labs reviewed.
Micro Results:
09/23/23 12:56 Blood Culture - Preliminary
Blood/Venous No Growth in 24 hours- Final report to follow
09/23/23 12:44 Blood Culture - Preliminary
Blood/Venous No Growth in 24 hours- Final report to follow
09/20/23 17:51 Urine Culture - Final
Urine Lactobacillus species
[2023-09-25] MEDS: COLACE 100 MG PO ×2 (09:46→19:50)
[2023-09-25] MEDS: PROTONIX 40 MG PO (09:46)
[2023-09-25] MEDS: ZOLOFT 50 MG PO (09:46)
[2023-09-25] MEDS: SENOKOT 17.1999999999999993 MG PO ×2 (09:46→19:50)
[2023-09-25] MEDS: FARXIGA PO (09:46)
[2023-09-25] MEDS: LASIX 40 MG PO (09:46)
[2023-09-25] MEDS: MIRALAX PO (09:47)
[2023-09-25] MEDS: DESENEX/MITRAZOL/ZEASORB TOPICAL (09:48)
--- NOTE | 2023-09-25 10:01 | W.PN.HOSP.TC ---
Addendum entered and electronically signed by Ilene Vanegas MD 09/25/23 10:25:
Correction. Patient was not on amoxicillin yet white count resolved
Receiving Ancef prior to procedure
Treat constipation
Original Note:
Today's Communication/Plan
-
pacemaker
Pleural effusion management per Pulmonary
Assessment / Plan
Assessment / Plan
83-year-old female admitted because of abdominal pain found to have moderate to large bilateral pleural effusions and CHF.
CT A/P: Moderate to large bilateral pleural effusions. Adjacent pulmonary parenchymal consolidation, likely compressive atelectasis. Minimal pericardial effusion. Postsurgical changes consistent with Whipple procedure. No focal mass or adenopathy.
No focal collection or abscess. No evidence of bowel obstruction. The appendix is not identified with certainty. No secondary signs of appendicitis. No obstructive uropathy. Probable small proteinaceous cyst at the anterior inferior margin of the
left kidney. Stable in size. Very subtle diminished stature is noted with trabecular sclerosis involving the superior endplate of L1, suspicious for subtle acute compression deformity. No hip fracture or dislocation. No periacetabular iliac fracture.
CXR: Moderate bilateral pleural effusions, left slightly greater than right. No significant vascular congestion. Limited evaluation of cardiac size, with the cardiac margin is obscured by pleural effusions. The upper lung zones are clear.
On examination denies any complaints
Awake and alert
Cardiovascular system irregular heart rate, sm aa
Chest decreased breath sounds bilateral bases
No pedal edema
#Moderate to large bilateral pleural effusions likely secondary to CHF exacerbation likely secondary to untreated A-fib with RVR:
-On admission, pt denied any symptoms but poor historian. O2 sat 93% RA from 98-100% previously
-IV fluids given in the ER, then stopped
-CT abdomen pelvis and chest x-ray showed moderate to large bilateral pleural effusions without pulmonary edema
-ProBNP 10,200
-Echo 08/14/23: EF 55-60%
-I/O's, daily weights
-Cont IV Lasix
-Cards following
# Atrial fibrillation with RVR:
-Likely due to medication noncompliance
-Heart rate-went bradycardic after increased dose of ypag-iimljlc-lqy on hold
-Eliquis-dose changed to 2.5 twice daily
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
-Cards following
# Leukocytosis-persists. No clear source of infection
CT of the chest with bilateral effusions left greater than right with adjacent atelectasis, parenchymal consolidation with minimal pericardial fusion.
Blood cultures x 2 neg so far
Normalized with Amoxicillin
#Abdominal pain/leukocytosis:
-SIRS on admission
-h/o recent Klebsiella UTI
-UA shows slightly cloudy urine, +1 leukocyte esterase, 6-10 WBC
-Amoxicillin for UTI
#DM2 with diabetic neuropathy:
-Not on antihyperglycemics at home
-cont SSI/accuchecks
-a1c 8.4%
-started Farxiga and Lantus 10U HS
-Cont Neurontin
#h/o mild-mod
#h/o DVT: cont Eliquis
#Essential hypertension
#GUZ3h-Yuyxz stable
#Depression: cont Zoloft
#Alzheimer's dementia: Cont Aricept
#GERD: cont PPI
#Hyperlipidemia: cont statin
#Chronic anemia: Continue iron supplement
#History of Whipple procedure
#Obesity due to excess calories
#L1- subtle acute compression deformity.
#Low-density nodule in the left lobe of the thyroid 4.0 cm-OP USS
#DNR
#DVT sqhcqfdeyed-Gzkgppa-bold for pacemaker
D/W RN
Spoke to Grand son Kwame yesterday
Updated daughter Clare Craig today
Anticipated Discharge: 24 - 48 hours
Subjective/Interval History
-
Date of Service: September 25, 2023
Objective Data
-
Labs:
Laboratory Results
09/25/23 09/25/23
03:20 04:16
WBC Cancelled 9.8
Hgb Cancelled 10.3 L
Hct Cancelled 33.2 L
Plt Count Cancelled 451 H
Sodium 136
Potassium 3.6
Chloride 99
Carbon Dioxide 26
BUN 37 H
Creatinine 1.9 H
Glucose 91
Calcium 9.0
Vital Signs:
Vital Signs
Temp Pulse Resp BP Pulse Ox
98 F 109 18 143/86 97
09/25/23 03:09 09/25/23 09:46 09/25/23 03:09 09/25/23 09:46 09/25/23 03:09
I&O
09/24/23 09/25/23 09/26/23
06:59 06:59 06:59
Intake Total 340 / 340 600 / 600
Balance 340 / 340 600 / 600
[2023-09-25] MEDS: D5/0.45%NACL 1000 IV (10:03)
--- NOTE | 2023-09-25 12:34 | CM ---
Addendum entered by Tatiana Reeves RN 09/25/23 13:13:
I spoke to the patient's daughter, both patient and have dementia. They have caregivers coming into the house. Patient's daughter would like to plan LTC but unsure if she wants to place her parents here or where she lives in [place]. Gave
the her [facility] and [employer] phone numbers to help with care. Plan is for the patient to return home.
Original Note:
Chart reviewed. Patient is independent of ADLS, lives with her in a bilevel home, [address], 0 [address]ME. Patient is current with [facility]. Plan is for the patient to return home with [facility]. I left a message with the patient's daughter to confirm.
CM to follow
[2023-09-25 13:31] LABS: Glucose - Point of Care 113 mg/dl (70-99)
--- NOTE | 2023-09-25 17:15 | W.PN.CD ---
Today's Communication / Plan
-
- PPM today
Impression / Plan
-
Tachy-Bruce syndrome:
-10 second pause on 09/22/2023 with near-syncope.
-Patient's daughter (her POA) states that they want to proceed with permanent pacemaker implantation.
-The patient is pleasantly demented and fairly functional at home.
-Plan is for pacemaker today
Acute on chronic HFpEF:
-recent echo 07/2023, normal EF 55-60%, mild to moderate , mild MS
-CXR remains with moderate pleural effusions
-Now transitioned to Lasix 40 mg PO daily; continue.
-On Eliquis; will hold tonight in anticipation for pacemaker implantation tomorrow.
PAF with RVR:
-Metoprolol held over the weekend for bradycardia/pause as noted above, so heart rate is elevated--which is expected.
-Resume metoprolol after pacemaker implantation.
HTN:
-Controlled/stable
Recent UTI:
-abx stopped per primary team
Disposition: Patient with advanced dementia (but completely lucid and relatively functional); does not appear that she will be safe for home, especially after undergoing pacemaker implantation with tachycardia-bradycardia syndrome as it appears that
the patient was not compliant with medications at home due to her dementia (family would find food in her bra).
Physical Exam
Vital Signs/Labs
Vital Signs
Temp Pulse Resp BP Pulse Ox
97.5 F 132 18 133/67 93
09/25/23 15:10 09/25/23 16:00 09/25/23 15:10 09/25/23 15:07 09/25/23 15:10
09/24/23 09/25/23 09/26/23
06:59 06:59 06:59
Actual Weight 67.9 kg
09/25/23 04:16
09/25/23 03:20
TSH 2.07 uIU/ml (0.47-4.68) 09/25/23 03:20
09/20/23
20:56
Kop-C-[place] Pept [id number]
Physical Exam
Constitutional: No acute distress, Comfortable and Confusion
EENT: Anicteric and Moist mucous membranes
Cardiovascular: Pedal edema is absent, Rhythm/rate is irregular, JVD present and Systolic murmur present
Respiratory: Respiratory effort normal, Lungs clear to auscul. and Wheeze Absent
GI: Soft, Non tender and Normal bowel sounds
Neuro/Psych: Alert
Other: Cardiac Device Site
Data Reviewed
-
Date of Service: September 25, 2023
Medical Decision Making: Reviewed Test Results, Independent Historian Assessment and Review of Case with other Provider
EKG: Tracing Personally Visualized and interpreted
Echo: Report Reviewed by me
Labs: Labs Reviewed by me
Old Records: Reviewed
--- NOTE | 2023-09-25 17:16 | ITS.CL.PACE ---
[facility] - Pacemaker Implant
Pacemaker Implant
Procedure Report:
Dual Chamber Pacemaker Placement:
Ms. Logan is a very pleasant 83 yrs old woman who presented with Tachy Bruce syndrome and severe bradycardia with long conversion pause and is recommended for PPM placement.�
Indications: Tachy Bruce syndrome
Date of the Procedure: 09/25/23
Pre-Operative Diagnosis: Tachy Bruce syndrome
Post-Operative Diagnosis: Tachy Bruce syndrome
Procedure Performed: DUAL CHAMBER PACEMAKER IMPLANTATION
Performing Physician:
Blanquita Robbins MD
Assistants:
EP staff
Anesthesia:
See anesthesia report
Pre-operative antibiotics:
Ancef
Detailed Description of the Procedure:
The patient was identified using hospital identification and informed consent obtained for the procedure. The risks were explained including, but not limited to: Bleeding, infection, arrhythmia, stroke, vascular/cardiac/lung puncture, surgery,
pacemaker dependency/device malfunction. All questions were answered.
The patient was brought to the electrophysiology laboratory in stable condition in fasting state. Continuous electrocardiographic and hemodynamic monitoring was initiated.
The initial rhythm was atrial fibrillation.
A surgical pause and time out was performed immediately prior to the procedure with review of her medical history, recent labs, allergies and medications with site of procedure identified and consent noted in the chart. Antibiotics pre operatively
given. All team members concurred.
The procedure site was meticulously prepared with surgical scrub and allowed to dry with no pooling. Sterile draping was applied to cover the procedure site. The image intensifier was draped with sterile bag and positioned over the patient.
The left infraclavicular region was prepped and draped in the usual sterile fashion. Local anesthesia was administered subcutaneously using 1% lidocaine / Bupivacaine. The left cephalic vein cutdown was performed with an incision at the
delto-pectoral groove, and vascular sheaths were introduced for lead access. These were advanced into the right ventricle and the right atrium.
The right ventricular lead was secured in position with a passive fixation technique at the apical septal location.
The RA lead was attached in the right atrial appendage with passive fixation.
There was excellent sensing, pacing, and impedance from the leads, with no diaphragmatic stimulation at 10 V output.�Bovie cautery, antibiotics, and fluoroscopy were used.
The sheaths were withdrawn, and the thresholds remained acceptable. The leads were secured in position at the venous entry site with 0-silk. A pocket was fashioned contiguous to the incision. The electrode terminals were connected to the pulse
generator, which was placed into the pocket. The wound was irrigated thoroughly with antibiotic solution.
The generator was anchored to the underlying fascia using 2.0 Ethibond suture.
The wound was closed in 3 layers using 2-0 V loc then two layers of 4-0 V loc sutures to the dermis. Steri-strips were applied externally and covered with Aquacel bandage.
Procedure End:
The procedure was tolerated well.
Estimated Blood loss:
10 cc
Specimens Removed:
No cultures and no specimens were obtained. No intraoperative pathology was identified.
Fluoro time:
2.1 min / 5.6mGy
Urine output:
None
Packs / Drains/ Tubes:
None
Instrument / Sponge Count Correct:
Yes
Complications of the Procedure:
None
Condition of Patient at Time of Transfer:
Hemodynamically stable with no neurological or vascular compromise.
Device information:�
Generator: [employer]; Model: W1DR01; Serial # [id number]�
Atrial Lead:
MedNuiku; Model: 4574-53; Serial # [id number]�
Measured data in the right atrium was sensing of 1.3 mV of AF /flutter waves, impedance of 630 ohms.
RV Lead:
Medtronic; Model: 4074-58; Serial # [id number]
Measured data in the RV lead was sensing of 13 mV, impedance of 1100 ohms and threshold of 0.75V at 0.4ms�
Bruce parameter settings were AAIR < = > DDDR 60-130 bpm. �
����������� Mode Switch: On
����������� Paced AV interval: 180ms
����������� Sensed AV interval: 150 ms.
����������� Rate Adaptive A-V Interval: Off
Output parameters:
����������������������� Amplitude (V)������������� Pulse Width (ms)������� Sensitivity (mV)
����������� RA: ���� 3.5 ����������������� ����������� 0.4������������������ ����������� 0.3
����������� RV:����� 3.5������������������ ����������� 0.4������������������ ����������� 0.9
Summary:
Successful implantation of MRI compatible dual chamber pacemaker
Results/Recommendations:
-Please follow up CXR�
1. Please provide patient with adequate pain control�
Instructions to be given to patient:�
- Please follow up with [facility] at [address] [place] [address] ([phone]) to get your wound checked within 14 days of your discharge.
- Do not wet incision site until after it is evaluated at cardiology clinic. No soaking or bath until then. Showers or Sponge baths are OK.�Dab dry the area after a shower.
- Do not lift left elbow above shoulder, particularly with sudden jerking movements, for 1 month�
- Do not lift anything weighing more than 10 pounds with the left arm for 1 month�
- If you notice any fevers, shortness of breath, lightheadedness, chest pain, or worsening swelling in the wound site, please contact the arrhythmia clinic, contact your stock analyst, or present to the hospital for evaluation.�
Blanquita Robbins MD
Electrophysiology
[2023-09-25] MEDS: TYLENOL 650 MG PO (19:50)
[2023-09-25] MEDS: ARICEPT 10 MG PO (21:21)
[2023-09-25] MEDS: ANCEF 5 IV (21:21)
[2023-09-25] MEDS: LANTUS 0.100000000000000006 UNITS SC (21:26)
[2023-09-25 21:30] LABS: Glucose - Point of Care 150 mg/dl (70-99)
[2023-09-26] VITALS (9 sets, daily range): BP systolic 109–158; BP diastolic 69–93; PULSE 80–93; O2SAT 95; BMI 28.4
[2023-09-26] MEDS: TYLENOL 650 MG PO ×2 (00:12→09:28)
[2023-09-26] MEDS: ANCEF 5 IV (05:26)
[2023-09-26 05:37] LABS: Hematocrit 35.6 % (37.0-47.0); Hemoglobin 11.3 g/dL (12.0-16.0); Mean Corp Hgb Conc. 31.7 g/dL (33.0-37.0); Mean Corpuscular Hgb 25.5 pg (27.0-31.0); Mean Corpuscular Volume 80.4 fL (81.0-99.0); Mean Platelet Volume 9.2 fL (7.4-10.4); Platelet Count 492 10^3/uL (130-400); Red Blood Cell Count 4.43 10^6/uL (4.20-5.40); Red Cell Dist. Width 14.9 % (11.5-14.5)
[2023-09-26 06:13] LABS: Blood Urea Nitrogen 35 mg/dl (7-17); Calcium 8.9 mg/dl (8.4-10.2); Carbon Dioxide 23 mmol/L (22-30); Chloride 101 mmol/L (98-107); Estimated Creatinine Clearance 22 ml/min; Glucose 124 mg/dl (70-99); Potassium 4.2 mmol/L (3.5-5.1); Sodium 135 mmol/L (135-145); eGFR 29.94
--- NOTE | 2023-09-26 08:05 | W.PN.CD ---
Today's Communication / Plan
-
Resume metoprolol for rate control
Resume Eliquis
discharge planning
Impression / Plan
-
Tachy-Bruce syndrome:
-s/p Medtronic DC MRI compatible ppm on 09/25/23
Acute on chronic HFpEF:
-improved
-recent echo 07/2023, normal EF 55-60%, mild to moderate , mild MS
-CXR remains with moderate pleural effusions
-Now transitioned to Lasix 40 mg PO daily; continue.
PAF with RVR:
-Metoprolol held over the weekend for bradycardia/pause as noted above, so heart rate is elevated--which is expected.
-Resume Metoprolol for accelerated rates
-Resume Elqiuis
HTN:
-Controlled/stable
Recent UTI:
-abx stopped per primary team
Subjective:
she is an unreliable historian
Physical Exam
Vital Signs/Labs
Vital Signs
Temp Pulse Resp BP Pulse Ox
97.3 F 108 16 123/85 94
09/26/23 07:08 09/26/23 07:08 09/26/23 07:08 09/26/23 07:08 09/26/23 07:08
09/25/23 09/26/23 09/27/23
06:59 06:59 06:59
Actual Weight 67 kg
09/26/23 04:52
09/26/23 04:52
TSH 2.07 uIU/ml (0.47-4.68) 09/25/23 03:20
09/20/23
20:56
Cfj-W-Qgqfhycnveh Pept [id number]
Physical Exam
Constitutional: No acute distress
Cardiovascular: Pedal edema is absent, JVD pressure is normal and Rhythm/rate is irregular
Respiratory: Respiratory effort normal, Lungs clear to auscul., Wheeze Absent, Crackles Absent and Rhonchi Absent
Neuro/Psych: Alert
Other: Cardiac Device Site (ppm soft nontender)
Data Reviewed
-
Date of Service: September 26, 2023
[2023-09-26 08:34] LABS: Glucose - Point of Care 109 mg/dl (70-99)
[2023-09-26] MEDS: NOVOLOG FLEXPEN-MODERATE RESISTANCE SC ×3 (08:37→17:17)
[2023-09-26] MEDS: FARXIGA 10 MG PO (09:18)
[2023-09-26] MEDS: ELIQUIS 2.5 MG PO ×2 (09:19→21:32)
[2023-09-26] MEDS: COLACE PO ×2 (09:19→09:37)
[2023-09-26] MEDS: ZOLOFT 50 MG PO (09:19)
[2023-09-26] MEDS: LASIX 40 MG PO (09:19)
[2023-09-26] MEDS: MIRALAX 17 GRAMS PO (09:19)
[2023-09-26] MEDS: SENOKOT 17.1999999999999993 MG PO ×2 (09:19→21:33)
[2023-09-26] MEDS: LOPRESSOR 50 MG PO ×2 (09:19→21:32)
[2023-09-26] MEDS: PROTONIX PO ×2 (09:19→09:37)
[2023-09-26] MEDS: DESENEX/MITRAZOL/ZEASORB TOPICAL ×3 (09:20→21:40)
[2023-09-26] MEDS: D5/0.45%NACL IV (09:23)
--- NOTE | 2023-09-26 09:24 | W.PN.PUL3 ---
Today's Communication / Plan
-
Telemetry
Replete K>4, Mg>2
MAP>65
Heart rate <110
Encourage IS
Observe off ABx unless pt spikes fever
Pt breathing comfortably, no need for thora at this juncture
We will continue to briefly follow along.
Assessment
-
83-year-old woman with multiple medical problems including dementia. Poor historian. Came for evaluation from the [facility]. Found to have signs and symptoms suggestive of heart failure. Tachybradycardia syndrome. She was diuresed.
Eventually creatinine increased. Despite diuresis and her weight trending lower she has persistent bilateral pleural effusions of moderate size. We were consulted for evaluation.
Bilateral pleural effusions due to ADHF
Acute on chronic heart failure with preserved ejection fraction-EF 50 to 60%. Mild to moderate AAS, mild MS.
Tachybradycardia syndrome with extended sinus pauses of 10 seconds s/p dual-chamber PPM (Medtronic - implanted on 09/25/2023)
Atrial fibrillation with rapid ventricular response - now rate controlled
Leukocytosis: improved
Acute kidney injury - improving
Hypoalbuminemia
Conditions present prior admission:
Hospital discharge 08/16/2023
Paroxysmal atrial fibrillation diagnosed 07/2023
History of Klebsiella UTI 07/2023
Mild to moderate aortic stenosis on echocardiogram
History of DVT
Hypertension
Type 2 diabetes
Diabetes neuropathy
Chronic kidney disease stage IIIb
Depression
Hypersomnia dementia
GERD
Assessment and plan:
Consulted for moderate bilateral pleural effusions on imaging despite diuresis on 09/24/2023.
Patient currently on room air.
Denies any complaints
Does not appear toxic
Very comfortable lying in bed.
Lung exam relatively clear.
Patient has dementia, unable to provide any history.
-
Patient admitted with heart failure: Diuresed and her weight is trending lower. Creatinine trended higher - now on PO lasix 40mg daily since 09/23
-
On CT scan of the chest On 09/23/2023 shows bilateral pleural effusion left greater than right with compressive atelectasis.
I doubt infectious etiology.
Possibly multifactorial: Hypoalbuminemia/recovering from volume overload with the lack on recovery.
TSH WNL at 2.07
Her liver does not appear cirrhotic.
-
Patient has a low albumin level that may be contributing to the slow recovery.
Continue nutritional support.
-
No indication for antibiotics from the pulmonary perspective unless she spikes a fever
-
Since this patient has advanced dementia, and is asymptomatic with no signs of infection. I favor more conservative management.
Daughter has consented for pacemaker
Currently she seems to be asymptomatic without signs of infection.
Observe off antibiotics
If there is signs of infection and worsening leukocytosis may proceed with thoracentesis.
If there is no signs of infection can observe unless family members decide to proceed with aggressive care. At that time, then thoracentesis would be arranged, if there is exudative then further evaluation might be necessary including connective
tissue disease evaluation etc.
-
Patient underwent dual-chamber PPM implantation on 09/24 and tolerated procedure well.
-
Disposition efforts
Will continue to briefly follow
Total time spent today was 35 minutes for this encounter. Time includes reviewing laboratory test/imaging results, reviewing pertinent medical records, obtaining and reviewing medical history, performing an appropriate exam, ordering medications,
tests and procedures. Time also includes documentation of this encounter, coordinating patient care and communicating with other healthcare professionals. Total time does not include separately billed tests performed on this date of service.
Subjective Data
-
Date of Service:
Date of Service: September 26, 2023
Chief Complaint: Pulmonary Follow Up
Subjective:
Seen and evaluated today at bedside. She underwent dual-chamber pacemaker implantation yesterday with no complications postoperatively. She remains on room air with SpO2 98%. Denies chest pain, headache, fevers or chills.
Review of Systems
General: Other (Negative unless mentioned above)
Objective Data
Data Reviewed
Vital Signs / I&O / Oxygen:
Vital Signs
Temp Pulse Resp BP Pulse Ox
97.3 F 88 16 128/74 98
09/26/23 15:23 09/26/23 15:23 09/26/23 15:23 09/26/23 11:24 09/26/23 15:23
Intake and Output
09/25/23 09/26/23 09/27/23
06:59 06:59 06:59
Intake Total 600 / 600 200 / 200
Balance 600 / 600 200 / 200
SaO2 98
Nasal Cannula flow liters per 2
minute
Physical Exam
General: Respiratory Distress (negative) and Comfortable
HEENT: Normocephalic and Anicteric
Cardiovascular: Peripheral Edema (negative) and Other (normal rate)
Respiratory: Clear, Wheeze (negative), Crackles (negative), Rhonchi (negative) and Accessory Resp Muscle Use (negative)
GI: Soft, Non Distended, Non Tender and Normal Bowel Sounds
Neurology: Awake and Alert
Skin: Warm and Dry
Labs/Micro/Reports
Lab Data
09/26/23 04:52
09/26/23 04:52
Microbiology
09/23/23 12:56 Blood/Venous Blood Culture - Preliminary
No Growth in 72 hours- Final report to follow
09/23/23 12:44 Blood/Venous Blood Culture - Preliminary
No Growth in 72 hours- Final report to follow
--- NOTE | 2023-09-26 10:47 | W.PN.HOSP.TC ---
Addendum entered and electronically signed by Ilene Vanegas MD 09/26/23 11:11:
Left a message for daughter Kiara.
Will try again if time permits.
Original Note:
Today's Communication/Plan
-
PT OT
Mag citrate
May need SNF
Assessment / Plan
Assessment / Plan
83-year-old female admitted because of abdominal pain found to have moderate to large bilateral pleural effusions and CHF.
CT A/P: Moderate to large bilateral pleural effusions. Adjacent pulmonary parenchymal consolidation, likely compressive atelectasis. Minimal pericardial effusion. Postsurgical changes consistent with Whipple procedure. No focal mass or adenopathy.
No focal collection or abscess. No evidence of bowel obstruction. The appendix is not identified with certainty. No secondary signs of appendicitis. No obstructive uropathy. Probable small proteinaceous cyst at the anterior inferior margin of the
left kidney. Stable in size. Very subtle diminished stature is noted with trabecular sclerosis involving the superior endplate of L1, suspicious for subtle acute compression deformity. No hip fracture or dislocation. No periacetabular iliac fracture.
CXR: Moderate bilateral pleural effusions, left slightly greater than right. No significant vascular congestion. Limited evaluation of cardiac size, with the cardiac margin is obscured by pleural effusions. The upper lung zones are clear.
On examination denies any complaints
Awake and alert
Cardiovascular system irregular heart rate, sm aa
Chest decreased breath sounds bilateral bases
No pedal edema
#Moderate to large bilateral pleural effusions likely secondary to CHF exacerbation likely secondary to untreated A-fib with RVR:
-On admission, pt denied any symptoms but poor historian. O2 sat 93% RA from 98-100% previously
-IV fluids given in the ER, then stopped
-CT abdomen pelvis and chest x-ray showed moderate to large bilateral pleural effusions without pulmonary edema
-ProBNP 10,200
-Echo 08/14/23: EF 55-60%
-I/O's, daily weights
-Cont Lasix changed to 40 mg PO daily
# Atrial fibrillation with RVR:
-Likely due to medication noncompliance
-Heart rate-went bradycardic after increased dose of beta-davis
-Eliquis-dose changed to 2.5 twice daily
-Patient got a place maker placed on 09/25/2023
-Metoprolol started at 50 mg twice daily dosage
-Patient pulled her dressings from the pacemaker yesterday
# Leukocytosis-resolved slightly high today
-No evidence of infection
-ID eval appreciated
#Abdominal pain/leukocytosis:
-SIRS on admission
-h/o recent Klebsiella UTI
-UA shows slightly cloudy urine, +1 leukocyte esterase, 6-10 WBC
-Off AB
-No further interventions per ID
#DM2 with diabetic neuropathy:
-Not on antihyperglycemics at home
-cont SSI/accuchecks
-A1c 8.4%
-Started Farxiga and Lantus 10U HS
-Cont Neurontin
#H/O mild-mod
#H/O DVT: cont Eliquis
#Essential hypertension
#KCF0x-Fieah stable
#Depression: cont Zoloft
#Alzheimer's dementia: Cont Aricept
#GERD: cont PPI
#Hyperlipidemia: cont statin
#Chronic anemia: Continue iron supplement
#History of Whipple procedure
#Obesity due to excess calories
#L1- subtle acute compression deformity.
#Low-density nodule in the left lobe of the thyroid 4.0 cm-OP USS
#DNR
#DVT rzbbsowcgkt-Efsohbw-bajp for pacemaker
D/W RN
D/W ID
D/W Cardiology
Anticipated Discharge: Today
Subjective/Interval History
-
Date of Service: September 26, 2023
Objective Data
-
Labs:
Laboratory Results
09/26/23
04:52
WBC 11.0 H
Hgb 11.3 L
Hct 35.6 L
Plt Count 492 H
Sodium 135
Potassium 4.2
Chloride 101
Carbon Dioxide 23
BUN 35 H
Creatinine 1.7 H
Glucose 124 H
Calcium 8.9
Vital Signs:
Vital Signs
Temp Pulse Resp BP Pulse Ox
97.3 F 97 16 123/85 94
09/26/23 07:08 09/26/23 10:00 09/26/23 07:08 09/26/23 09:19 09/26/23 07:08
I&O
09/25/23 09/26/23 09/27/23
06:59 06:59 06:59
Intake Total 600 / 600 200 / 200
Balance 600 / 600 200 / 200
[2023-09-26] MEDS: CITROMA 150 ML PO (12:44)
[2023-09-26] MEDS: NEURONTIN 300 MG PO ×2 (12:46→21:32)
[2023-09-26] MEDS: PRANDIN 0.5 MG PO (12:46)
[2023-09-26 12:57] LABS: Glucose - Point of Care 112 mg/dl (70-99)
--- NOTE | 2023-09-26 14:26 | CM ---
Addendum entered by Tatiana Reeves RN 09/26/23 15:18:
Accepting MD Dr Pollack [phone]
[facility]
SNF Precertification faxed to [facility] [phone], Ref# [id number]
Original Note:
Chart reviewed. Patient is independent of ADLS, lives with her in a bilevel home 0 BRENNA, 0 DME. PT evaluation recommending SNF. I spoke with the patient's daughter and she prefers [facility]. Patient has
[employer], [facility] and [facility] do not accept. [facility] until or Monday. Referral sent to [facility], they do have a bed and accepted the patient. I spoke to the patient's daughter, Clare,
she is agreeable to [facility]. Waiting on insurance authorization. Plan is for the patient to go to [facility]
--- NOTE | 2023-09-26 16:57 | PTCARENOTE ---
The patient's daughter Julia called. She asked if her mom's licence and insurance card were in her room. In addition, she also asked where her mom's clothes were as she didn't remember them being in her room when she had visited. I inspected the
patient's room and there were no clothing, licence, insurance card, or any personal belongings found in her room. I called [facility] to see if her belongings were left there when she was transferred from there post rapid response. They could find no
belongings either. In addition, I contacted the ED and security to see if any of her belongings were left there. Unfortunately, no personal belongings were found there either. I called the daughter and left her a message that nothing was found.
[2023-09-26 17:15] LABS: Glucose - Point of Care 94 mg/dl (70-99)
[2023-09-26] MEDS: PRANDIN PO (17:17)
--- NOTE | 2023-09-26 17:52 | PTCARENOTE ---
Addendum entered by Zeinab Maloney RN 09/26/23 18:43:
The patient's appetite has been poor all shift.
Original Note:
The patient has been forgetful all shift. She has no short term memory. Whatever you say to her, she has already forgotten it seconds later. She has been in Afib. Her left chest wall dressing remains intact. She has no complaints of pain. She has
been ambulatory in the room x 1 assist with a RW. The chair alarm and the Med Sitter has been in place and has been effective all shift. At times she will ring the call smith.
[2023-09-26] MEDS: ARICEPT 10 MG PO (21:32)
[2023-09-26] MEDS: COLACE 100 MG PO (21:33)
--- NOTE | 2023-09-26 22:03 | PTCARENOTE ---
Patient in chair. Confused and cooperative. Med sitter in room and bed/chair alarm audible. Left chest wall Aquacel dressing intact with tape covering it. Patient reluctant to take PO medications, requires much convincing. Assisted to the bathroom
to void, passing flatus. Call smith in reach
[2023-09-26 22:52] LABS: Glucose - Point of Care 145 mg/dl (70-99)
--- NOTE | 2023-09-26 23:46 | PTCARENOTE ---
Softy large loose brown stool with urgency and incontinence. Complete bath completed
--- NOTE | 2023-09-27 00:44 | PTCARENOTE ---
Attempting to give Tylenol for general aches. Patient spit out the pills, repositioned for comfort
--- NOTE | 2023-09-27 01:39 | PTCARENOTE ---
Patient transferred to 2 deaver, all belongings sent with patient
[2023-09-27 01:47] VITALS: BP 130/74
[2023-09-27 05:30] VITALS: BMI 27.8
[2023-09-27 07:18] LABS: Blood Urea Nitrogen 36 mg/dl (7-17); Calcium 9.3 mg/dl (8.4-10.2); Carbon Dioxide 26 mmol/L (22-30); Chloride 99 mmol/L (98-107); Estimated Creatinine Clearance 25 ml/min; Glucose 117 mg/dl (70-99); Potassium 3.7 mmol/L (3.5-5.1); Sodium 136 mmol/L (135-145); eGFR 34.79
[2023-09-27 07:51] LABS: Glucose - Point of Care 128 mg/dl (70-99)
[2023-09-27] MEDS: SENOKOT PO (07:57)
[2023-09-27] MEDS: MIRALAX PO (07:57)
[2023-09-27] MEDS: NOVOLOG FLEXPEN-MODERATE RESISTANCE SC (07:57)
[2023-09-27] MEDS: COLACE PO (07:58)
[2023-09-27 08:00] VITALS: BP 139/76
[2023-09-27] MEDS: PROTONIX 40 MG PO (08:04)
[2023-09-27] MEDS: FARXIGA 10 MG PO (08:04)
[2023-09-27] MEDS: ZOLOFT 50 MG PO (08:04)
[2023-09-27] MEDS: ELIQUIS 2.5 MG PO (08:04)
[2023-09-27] MEDS: NEURONTIN 300 MG PO (08:04)
[2023-09-27] MEDS: LOPRESSOR 50 MG PO (08:04)
[2023-09-27] MEDS: DESENEX/MITRAZOL/ZEASORB 1 APPLIC TOPICAL (08:06)
[2023-09-27] MEDS: LASIX 40 MG PO (08:06)
[2023-09-27] MEDS: PRANDIN 0.5 MG PO ×2 (08:07→12:28)
[2023-09-27 09:08] VITALS: BP 113/76; PULSE 78; O2SAT 95
--- NOTE | 2023-09-27 09:16 | CM ---
Patient has been approved to go to [facility] 09/26-09/28, NRD 09/28. Ref# [id number]. Sheet Cutter Dunia Loja
--- NOTE | 2023-09-27 09:16 | W.HF.CON ---
Heart Failure
- LV Function
Left ventricular function study result: LV Ejection fraction >40% (ECHO 08/14/23)
Ejection Fraction Percentage: 55-60
- ARNI
Patient already on ARNI: No
Heart Failure ARNI Not Indicated: LV Ejection Fraction >/= 40%
- ACEI/ARB
Patient already on ACEI/ARB: No
Heart Failure ACEI/ARB Not Indicated: LV Ejection Fraction > 40%
- Beta Liz
Patient already on Evidence Based Beta Liz: No
Heart Failure Evidence Based Beta Liz Not Indicated: LV Ejection Fraction > 40%
- Mineralocorticord Receptor Antagonist
Patient already on MRA: No
Heart Failure MRA Not Indicated: LV Ejection Fraction > 40%
- SGLT-2 Inhibitor
Patient already on SGLT-2 Inhibitor: Yes
- Afib Anticoagulation
Patient already on Anticoagulation for Afib: Yes
- NYHA CHF Classification
NYHA CHF Classification Level: Class III - Symptoms w/ min exertion, interferes w/ nml daily activity
- ACC/AHA Stage
ACC/AHA Stage: Stage C: Symptomatic Heart Failure
--- NOTE | 2023-09-27 09:31 | CM ---
Addendum entered by Steffi Cedillo RN 09/27/23 09:38:
CM spoke with admissions liaison Hanny at [facility]. CM provided nurses station number for their RN to contact RN here for report.
Fax report to: [phone]
Medical necessity and transport form on chart.
Original Note:
Reviewed the chart notes. Attempted to reach first contact listed (dtr) phone rang, no voice message. Left voice message on second contact's (Kwame) regarding IMM and that patient's precert for [facility] has been approved. CM left number
requesting call back. CM continues to be available to patient/family and is monitoring medical plan for needs at discharge.
Plan: Discharge to [facility] today.
--- NOTE | 2023-09-27 09:58 | W.PN.PUL3 ---
Today's Communication / Plan
-
Telemetry
Replete K>4, Mg>2
MAP>65
Heart rate <110
Encourage IS
Observe off ABx unless pt spikes fever
Pt breathing comfortably, no need for thora at this juncture
Patient being discharged today. Pulmonary service will now sign off. Please reconsult if there are any additional questions/concerns, or if patient's respiratory status deteriorates.
Assessment
-
83-year-old woman with multiple medical problems including dementia. Poor historian. Came for evaluation from the custodial. Found to have signs and symptoms suggestive of heart failure. Tachybradycardia syndrome. She was diuresed.
Eventually creatinine increased. Despite diuresis and her weight trending lower she has persistent bilateral pleural effusions of moderate size. We were consulted for evaluation.
Impression:
Bilateral pleural effusions due to ADHF
Acute on chronic heart failure with preserved ejection fraction-EF 50 to 60%. Mild to moderate AAS, mild MS.
Tachybradycardia syndrome with extended sinus pauses of 10 seconds s/p dual-chamber PPM ([employer] - implanted on 09/25/2023)
Atrial fibrillation with rapid ventricular response - now rate controlled
Leukocytosis: improved
Acute kidney injury - improving
Hypoalbuminemia
Conditions present prior admission:
Hospital discharge 08/16/2023
Paroxysmal atrial fibrillation diagnosed 07/2023
History of Klebsiella UTI 07/2023
Mild to moderate aortic stenosis on echocardiogram
History of DVT
Hypertension
Type 2 diabetes
Diabetes neuropathy
Chronic kidney disease stage IIIb
Depression
Hypersomnia dementia
GERD
Assessment and plan:
Consulted for moderate bilateral pleural effusions on imaging despite diuresis on 09/24/2023.
Patient currently on room air.
Denies any complaints
Does not appear toxic
Very comfortable lying in bed.
Lung exam relatively clear.
Patient has dementia, unable to provide any history.
-
Patient admitted with heart failure: Diuresed and her weight is trending lower. Creatinine trended higher - now on PO lasix 40mg daily since 09/23
-
On CT scan of the chest On 09/23/2023 shows bilateral pleural effusion left greater than right with compressive atelectasis.
I doubt infectious etiology.
Possibly multifactorial: Hypoalbuminemia/recovering from volume overload with the lack on recovery.
TSH WNL at 2.07
Her liver does not appear cirrhotic.
-
Patient has a low albumin level that may be contributing to the slow recovery.
Continue nutritional support.
-
No indication for antibiotics from the pulmonary perspective unless she spikes a fever
-
Since this patient has advanced dementia, and is asymptomatic with no signs of infection. I favor more conservative management.
Daughter has consented for pacemaker
Currently she seems to be asymptomatic without signs of infection.
Observe off antibiotics
If there is signs of infection and worsening leukocytosis may proceed with thoracentesis.
If there is no signs of infection can observe unless family members decide to proceed with aggressive care. At that time, then thoracentesis would be arranged, if there is exudative then further evaluation might be necessary including connective
tissue disease evaluation etc.
-
Patient underwent dual-chamber PPM implantation on 09/24 and tolerated procedure well.
Patient being discharged today. Pulmonary service will now sign off. Thank you for allowing us to be involved in the care of this patient. Please reconsult if there are any additional questions/concerns, or if patient's respiratory status
deteriorates.
Total time spent today was 25 minutes for this encounter. Time includes reviewing laboratory test/imaging results, reviewing pertinent medical records, obtaining and reviewing medical history, performing an appropriate exam, ordering medications,
tests and procedures. Time also includes documentation of this encounter, coordinating patient care and communicating with other healthcare professionals. Total time does not include separately billed tests performed on this date of service.
Subjective Data
-
Date of Service:
Date of Service: September 27, 2023
Chief Complaint: Pulmonary Follow Up
Subjective:
Patient seen and evaluate today bedside. She has no complaints and is pending discharge today. Denies chest pain, headache, shortness of breath, fevers or chills.
Review of Systems
General: Other (Negative unless mentioned above)
Objective Data
Data Reviewed
Vital Signs / I&O / Oxygen:
Vital Signs
Temp Pulse Resp BP Pulse Ox
97.4 F 76 18 120/74 97
09/27/23 12:01 09/27/23 12:01 09/27/23 12:01 09/27/23 12:01 09/27/23 12:01
Intake and Output
09/26/23 09/27/23 09/28/23
06:59 06:59 06:59
Intake Total 200 / 200 0 / 0
Balance 200 / 200 0 / 0
SaO2 97
Nasal Cannula flow liters per 2
minute
Physical Exam
General: Respiratory Distress (negative) and Comfortable
HEENT: Normocephalic and Anicteric
Cardiovascular: Peripheral Edema (negative) and Other (normal rate)
Respiratory: Clear, Wheeze (negative), Crackles (negative), Rhonchi (negative) and Accessory Resp Muscle Use (negative)
GI: Soft, Non Distended, Non Tender and Normal Bowel Sounds
Neurology: Awake and Alert
Skin: Warm and Dry
Labs/Micro/Reports
Lab Data
09/26/23 04:52
09/27/23 06:21
Microbiology
09/23/23 12:56 Blood/Venous Blood Culture - Preliminary
No Growth in 4 days- Final report to follow
09/23/23 12:44 Blood/Venous Blood Culture - Preliminary
No Growth in 4 days- Final report to follow
--- NOTE | 2023-09-27 11:47 | W.PN.HOSP.TC ---
Today's Communication/Plan
-
Discharge
Assessment / Plan
Assessment / Plan
83-year-old female admitted because of abdominal pain found to have moderate to large bilateral pleural effusions and CHF.
CT A/P: Moderate to large bilateral pleural effusions. Adjacent pulmonary parenchymal consolidation, likely compressive atelectasis. Minimal pericardial effusion. Postsurgical changes consistent with Whipple procedure. No focal mass or adenopathy.
No focal collection or abscess. No evidence of bowel obstruction. The appendix is not identified with certainty. No secondary signs of appendicitis. No obstructive uropathy. Probable small proteinaceous cyst at the anterior inferior margin of the
left kidney. Stable in size. Very subtle diminished stature is noted with trabecular sclerosis involving the superior endplate of L1, suspicious for subtle acute compression deformity. No hip fracture or dislocation. No periacetabular iliac fracture.
CXR: Moderate bilateral pleural effusions, left slightly greater than right. No significant vascular congestion. Limited evaluation of cardiac size, with the cardiac margin is obscured by pleural effusions. The upper lung zones are clear.
On examination denies any complaints
Awake and alert
Cardiovascular system irregular heart rate, sm aa
Chest decreased breath sounds bilateral bases
No pedal edema
#Moderate to large bilateral pleural effusions likely secondary to CHF exacerbation likely secondary to untreated A-fib with RVR:
-On admission, pt denied any symptoms but poor historian. O2 sat 93% RA from 98-100% previously
-IV fluids given in the ER, then stopped
-CT abdomen pelvis and chest x-ray showed moderate to large bilateral pleural effusions without pulmonary edema
-ProBNP 10,200
-Echo 08/14/23: EF 55-60%
-I/O's, daily weights
-Cont Lasix changed to 40 mg PO daily
# Atrial fibrillation with RVR:
-Likely due to medication noncompliance
-Heart rate-went bradycardic after increased dose of beta-davis
-Eliquis-dose changed to 2.5 twice daily
-Patient got a place maker placed on 09/25/2023
-Metoprolol started at 50 mg twice daily dosage
-Patient pulled her dressings from the pacemaker yesterday
# Leukocytosis-resolved slightly high today
-No evidence of infection
-ID eval appreciated
#Abdominal pain/leukocytosis:
-SIRS on admission
-h/o recent Klebsiella UTI
-UA shows slightly cloudy urine, +1 leukocyte esterase, 6-10 WBC
-Off AB
-No further interventions per ID
#DM2 with diabetic neuropathy:
-Not on antihyperglycemics at home
-cont SSI/accuchecks
-A1c 8.4%
-Started Farxiga and Prandin.
-Stopped Lantus
-Cont Neurontin
#H/O mild-mod
#H/O DVT: cont Eliquis
#Essential hypertension
#[id number]-Czafy stable
#Depression: cont Zoloft
#Alzheimer's dementia: Cont Aricept
#GERD: cont PPI
#Hyperlipidemia: cont statin
#Chronic anemia: Continue iron supplement
#History of Whipple procedure
#Obesity due to excess calories
#L1- subtle acute compression deformity.
#Low-density nodule in the left lobe of the thyroid 4.0 cm-OP USS-Daughter aware
#DNR
#DVT [id number] for pacemaker
D/W RN
D/W Daughter Clare Craig
D/W case management
Discharge coordination time 34 min
Anticipated Discharge: Today
Subjective/Interval History
-
Date of Service: September 27, 2023
Objective Data
-
Labs:
Laboratory Results
09/27/23
06:21
Sodium 136
Potassium 3.7
Chloride 99
Carbon Dioxide 26
BUN 36 H
Creatinine 1.5 H
Glucose 117 H
Calcium 9.3
Vital Signs:
Vital Signs
Temp Pulse Resp BP Pulse Ox
97.5 F 79 18 139/76 96
09/27/23 08:00 09/27/23 08:06 09/27/23 08:00 09/27/23 08:06 09/27/23 08:00
I&O
09/26/23 09/27/23 09/28/23
06:59 06:59 06:59
Intake Total 200 / 200 0 / 0
Balance 200 / 200 0 / 0
--- NOTE | 2023-09-27 11:51 | W.DS.TRANS ---
Addendum entered and electronically signed by Ilene Vanegas MD 09/27/23 16:56:
Dictation- [id number]
Original Note:
DC Summary - Water Filter Cleaner
-
Discharge Instructions:
Discharge Diagnosis/Procedures Pacemaker implant, bilateral pleural effusion,
atrial fibrillation, leukocytosis, diabetes,
mild to moderate aortic stenosis, hypertension,
depression, dementia, GERD, high sternal, L1
subacute compression deformity, left lobe of
thyroid 4 cm nodule
Diet Restrict fluids to 64 oz,2 Gram Sodium,Diabetic,
Carb Controlled
Activity As tolerated,With assistance
Driving Restrictions No driving
Blood Work cbc,bmp 1 week
Others Tests Chest X ray 4 weeks-Pleural effusion
Other Services PT,OT
Specialty Instructions Weigh Daily
Instructions: *CBC Heart Failure Instructions
Stand-Alone Forms: DC Inst - Implanted Device
Changes to Home Medications: Yes
Discharge Medications:
DC Medications w/original date entered in [facility]
ferrous sulfate 325 mg (65 mg iron) tablet (FeroSul) 325 mg PO NOON Supplement #30 tabs 06/21/21
donepezil 10 mg tablet 10 mg PO HS cognition/memory 08/12/23
gabapentin 300 mg capsule 300 mg PO BID Pain 08/12/23
simvastatin 40 mg tablet 40 mg PO QPM High cholesterol #30 tabs 08/16/23
sertraline 50 mg tablet 50 mg PO DAILY depression/anxiety 09/20/23
metoprolol succinate 50 mg tablet,extended release 24 hr 50 mg PO BID Blood Pressure 09/21/23
pantoprazole 40 mg tablet,delayed release 40 mg PO DAILY Gastrointestinal Issue 09/21/23
acetaminophen 325 mg tablet 650 mg (2 x 325 mg) PO Q4HPRN PRN MILD PAIN #0 tabs 09/26/23
apixaban 2.5 mg tablet (Eliquis) 2.5 mg PO BID Blood clot prevention/tx #60 tabs 09/26/23
dapagliflozin propanediol 10 mg tablet 10 mg PO DAILY Heart disease/condition #30 tabs 09/26/23
docusate sodium 100 mg capsule 100 mg PO BID Constipation #0 caps 09/26/23
furosemide 40 mg tablet 40 mg PO DAILY Fluid retention/Swelling #30 tabs 09/26/23
polyethylene glycol 3350 17 gram oral powder packet (HealthyLax) 17 g PO DAILY Constipation #0 ea 09/26/23
repaglinide 0.5 mg tablet 0.5 mg PO MEALS Diabetes #90 tabs 09/26/23
sennosides 8.6 mg tablet (Senna Laxative) 17.2 mg (2 x 8.6 mg) PO HS Constipation #0 tabs 09/26/23
Home Medication Changes
Eliquis dose changed to 2.5 twice daily
Farxiga and Prandin are new
Pending Results: No
[2023-09-27 12:01] VITALS: BP 120/74
[2023-09-27 12:13] LABS: Glucose - Point of Care 165 mg/dl (70-99)
[2023-09-27] MEDS: NOVOLOG FLEXPEN-MODERATE RESISTANCE 1 UNITS SC (12:28)
--- NOTE | 2023-09-27 14:20 | PTCARENOTE ---
Spoke with Chepe from [facility] with report on patient. Transport is scheduled for 1400 but is running behind.
== END 2023-09-27 14:40 | DRG 242 ==
LOC: 2 NORTH 21:31
PROVIDERS: Internal Medicine; ADMITTING PHYSICIAN Hospitalist; ATTENDING PHYSICIAN Hospitalist; CONSULT PHYSICIAN Internal Medicine Cardiovascular Disease; CONSULT PHYSICIAN Internal Medicine Critical Care Medicine; CONSULT PHYSICIAN Student in an Organized Health Care Education/Training Program; EMERGENCY PHYSICIAN Emergency Medicine
PROC: 0JH606Z Insertion of Pacemaker, Dual Chamber into Chest Subcutaneous Tissue and Fascia, Open Approach (ICD-10-PCS; 2023-09-25)
PROC: 02H63JZ Insertion of Pacemaker Lead into Right Atrium, Percutaneous Approach (ICD-10-PCS; 2023-09-25)
PROC: 02HK3JZ Insertion of Pacemaker Lead into Right Ventricle, Percutaneous Approach (ICD-10-PCS; 2023-09-25)
DX: I49.5 Sick sinus syndrome (principal); I50.33 Acute on chronic diastolic (congestive) heart failure; I13.0 Hypertensive heart and chronic kidney disease with heart failure and stage 1 through stage 4 chronic kidney disease, or unspecified chronic kidney disease; N17.9 Acute kidney failure, unspecified; R65.10 Systemic inflammatory response syndrome (SIRS) of non-infectious origin without acute organ dysfunction; N39.0 Urinary tract infection, site not specified; F02.83 Dementia in other diseases classified elsewhere, unspecified severity, with mood disturbance; I48.0 Paroxysmal atrial fibrillation; N18.32 Chronic kidney disease, stage 3b; E11.22 Type 2 diabetes mellitus with diabetic chronic kidney disease; E11.40 Type 2 diabetes mellitus with diabetic neuropathy, unspecified; G30.9 Alzheimer's disease, unspecified; F32.A Depression, unspecified; D64.9 Anemia, unspecified; Z66 Do not resuscitate; Z91.148 Patient's other noncompliance with medication regimen for other reason; Z90.411 Acquired partial absence of pancreas; Z79.01 Long term (current) use of anticoagulants; Z79.82 Long term (current) use of aspirin; Z79.84 Long term (current) use of oral hypoglycemic drugs
CPT/HCPCS: 33208; 71045; 71046; 71250; 74018; 74177; 80048; 80053; 81003; 81015; 82962; 83036; 83690; 83880; 84443; 84484; 85025; 85027; 87040; 87086; 87811; 92610; 93005; 96361; 96374; 96375; 96376; 97116; 97162; 97166; 99285; C1785; C1892; C1898; Q9967

== ENCOUNTER 2023-10-19 11:25 | Emergency (ER) | payer OTHER, SELFPAY ==
[2023-10-19 11:30] VITALS: BMI 30.4
[2023-10-19 11:38] VITALS: BP 145/71
--- NOTE | 2023-10-19 11:49 | ED.GENMED ---
History of Present Illness
General
Chief Complaint: Chest Pain
Source: patient
Exam Limitations: none
Time Seen by Provider: 10/19/23 11:45
Travel History
Have you had any contact with someone who has COVID-19?: No
Do you have any symptoms of coronavirus? Fever > 100 degrees, chills, cough, shortness of breath, sore throat, loss of taste or smell, muscle aches, or headache?: No
History of Present Illness
History of Present Illness:
See MDM
Past History
Past History
ED Past Medical History: Cancer, Hypercholesterolemia and NIDDM
ED Past Surgical History: Appendectomy, Gynecological (Hysterectomy), Orthopedic and Other (Whipple)
Social History
Living: with family
Phy Exam
Physical Exam
Physical Exam:
See MDM
Scores
Heart Score for Chest Pain Patients
STEMI patient?: No
History: Slightly or Non-Suspicious
ECG: Normal
Age: >/= 65 years
Risk Factors: >/= 3 Risk Factors or History of CAD
Troponin: </= Normal Limit
Heart Score for Chest Pain Patients: 4
Heart Score Risk: 20.3% MACE over next 6 weeks
Course
Orders/Labs/Results
Orders:
Orders
10/19/23 11:28
Electrocardiogram (*1) Urgent
Reason for Study: Chest Pain
Cardiac Monitoring- Treatment ONCE
EKG- Treatment ONCE
IV Insert/Care/Rem.- Treatment PRN
10/19/23 11:46
Complete Blood Count/With Diff Urgent
Comprehensive Metabolic Panel Urgent
Troponin I Urgent
10/19/23 11:48
CR Chest - 2 Views Urgent
Comment:
Reason For Exam: chest pain
Abnormal Lab Results
10/19/23
11:46
Hgb 10.9 L g/dL
(12.0-16.0)
Hct 36.3 L %
(37.0-47.0)
MCH 24.3 L pg
(27.0-31.0)
MCHC 30.0 L g/dL
(33.0-37.0)
RDW 15.4 H %
(11.5-14.5)
Absolute Neuts (auto) 6.7 H 10^3/uL
(1.4-6.5)
Neutrophils % 76.1 H %
(42.2-75.2)
Lymphocytes % 17.1 L %
(20.5-51.1)
BUN 27 H mg/dl
(7-17)
Creatinine 1.2 H mg/dL
(0.6-1.0)
Glucose 145 H mg/dl
(70-99)
Albumin 3.3 L g/dl
(3.5-5.0)
10/19/23 11:46
10/19/23 11:46
Vital Signs
Initial and Last Documented VS:
Initial Vital Signs
Pulse Resp Pulse Ox
61 14 97
10/19/23 11:37 10/19/23 11:37 10/19/23 11:37
Last Documented Vital Signs
Temp Pulse Resp BP Pulse Ox
97.5 F 60 14 133/56 97
10/19/23 11:38 10/19/23 14:30 10/19/23 14:30 10/19/23 14:00 10/19/23 14:15
MDM/Problems Addressed
Differential Diagnosis Includes:
HPI and MDM Narrative:
83-year-old female presenting with resolved chest pain. Patient has a history of dementia and does not remember having chest pain. She is currently chest pain-free. Prior records indicate that she was recently admitted for UTI and she was found
to have pleural effusions and A-fib where she required pacemaker
Patient sitting in bed comfortably. Will obtain basic blood work and chest x-ray
Physical exam
General: Well appearing and non-toxic
HEENT: protecting airway
Neck: appears supple
CV: No evidence of cyanosis. Regular rate and rhythm
Resp: No accessory muscle use. Lungs clear
Abd: Non-distended
Extremities: +1 pitting edema bilateral lower extremities
Neuro: alert
Psych: Normal affect
Skin: Intact
Problems Addressed including Acute and Chronic Conditions affecting care:
1. Resolved chest pain
Acuity: acute
Prognosis: stable
Details: EKG nonischemic. It is paced. Given recent pacemaker, will obtain chest x-ray
Updates
Chest x-ray appears to be unchanged. Troponin negative. On multiple reassessments, patient sleeping comfortably.
Differential Diagnosis (but not limited to): Pleural effusion, pneumothorax, ACS
Testing considered: D-dimer but she is anticoagulated
Drug therapy (if applicable): OTC meds, please see d/c instruction regarding Rx drugs
Amount and/or Complexity of Data Reviewed
Clinical info obtained from: Patient
External data reviewed: recent admission where she required pacemaker
Labs I independently reviewed (but not limited to): Troponin within normal limits
Radiology: N/A
Pulse Ox: not hypoxic
EKG independently reviewed: N/A
Nuclear Officer: N/A
Critical Care: N/A
Risk of Complication:
Social Determinants of health: Good social support
Discussed with other providers: N/A
Escalation of Care includes Admit/Obs: After being observed in the Emergency Department, pt stable for discharge.
Occasional wrong word or 'sound a like' substitutions may have occurred due to the inherent limitations of voice recognition software. Read the chart carefully and recognize, using context, where substitutions have occurred.
*Critical Care Note
Total Time (30-74mins, 75-104mins- exclusive of procedures): Not Applicable
ED Attending Note
-
Portions of this chart may have been created with voice recognition software.� Occasional wrong word or��sound alike� substitutions may have occurred due to the inherent limitations of voice recognition software.
Discharge Plan
Departure
Patient Disposition: Home (Routine Discharge)
Date of Disposition: 10/19/23
Time of Disposition: 14:36
Patient with high blood pressure during this ER visit?: Yes
Discharge Problem:
Chest pain, Prolonged QT interval
Instructions: Chest Pain CBC Follow Up
Prescriptions:
No Action
ferrous sulfate [FeroSul] 325 MG tablet
325 mg PO NOON Qty: 30 0RF
gabapentin 300 MG capsule
300 mg PO BID
donepezil 10 mg Tablet
10 mg PO HS
simvastatin 40 MG tablet
40 mg PO QPM Qty: 30 0RF
sertraline 50 mg tablet
50 mg PO DAILY
metoprolol succinate 50 mg tablet extended release 24 hr
50 mg PO BID
pantoprazole 40 MG tablet,delayed release (DR/EC)
40 mg PO DAILY
furosemide 40 mg Tablet
40 mg PO DAILY Qty: 30 0RF
sennosides [Senna Laxative] 8.6 mg Tablet
17.2 mg PO HS Qty: 0 0RF
acetaminophen 325 mg Tablet
650 mg PO Q4HPRN PRN (Reason: MILD PAIN) Qty: 0 0RF
polyethylene glycol 3350 [HealthyLax] 17 gram Powder In Packet
17 g PO DAILY Qty: 0 0RF
repaglinide 0.5 mg Tablet
0.5 mg PO MEALS Qty: 90 0RF
docusate sodium 100 mg Capsule
100 mg PO BID Qty: 0 0RF
Eliquis 2.5 mg Tablet
2.5 mg PO BID Qty: 60 0RF
dapagliflozin propanediol 10 mg Tablet
10 mg PO DAILY Qty: 30 0RF
Referrals:
UNKNOWN,NO INTERVIEW [Family Provider] -
Activity Restrictions/Additional Instructions:
Please return for any worsening symptoms.
You may return at any time if you have further concerns.
Please follow up with your doctor at the first available appointment, preferably this week.
You were placed on the cardiac callback tracker. Someone from their office should call you in the next few days. If you do not hear from them in the next few days, please give them a call.
Thank you for choosing [facility].
Interventions
Interventions:
ED- Cardiac Assessment Last Done: 10/19/23 12:51
Discharge Date and Time
Print Language: [id number]
[2023-10-19 11:55] LABS: % Basophils 0.2 % (0-2); % Immature Granulocytes 0.5 % (0-0.5); % Lymphocytes 17.1 % (20.5-51.1); % Monocytes 5.1 % (1.7-9.3); % Neutrophils 76.1 % (42.2-75.2); Absolute Eosinophils 0.1 10^3/uL (0-0.7); Absolute Lymphocytes 1.5 10^3/uL (1.2-3.4); Absolute Monocytes 0.5 10^3/uL (0.1-0.6); Absolute Neutrophils 6.7 10^3/uL (1.4-6.5); Hematocrit 36.3 % (37.0-47.0); Hemoglobin 10.9 g/dL (12.0-16.0); Mean Corpuscular Hgb 24.3 pg (27.0-31.0); Mean Platelet Volume 9.3 fL (7.4-10.4); Nucleated Red Blood Cells % 0 %; Platelet Count 297 10^3/uL (130-400); Red Blood Cell Count 4.48 10^6/uL (4.20-5.40); Red Cell Dist. Width 15.4 % (11.5-14.5); White Blood Cell Count 8.8 10^3/uL (4.8-10.8)
[2023-10-19 12:08] VITALS: BP 133/70
[2023-10-19 12:19] LABS: Troponin I 0.034 ng/ml
[2023-10-19 12:20] LABS: ALT (SGPT) < 10 U/L (0-35); AST (SGOT) 30 U/L (14-36); Albumin 3.3 g/dl (3.5-5.0); Alkaline Phosphatase 98 U/L (38-126); Blood Urea Nitrogen 27 mg/dl (7-17); Calcium 8.9 mg/dl (8.4-10.2); Carbon Dioxide 26 mmol/L (22-30); Chloride 105 mmol/L (98-107); Estimated Creatinine Clearance 32 ml/min; Glucose 145 mg/dl (70-99); Potassium 4.7 mmol/L (3.5-5.1); Sodium 137 mmol/L (135-145); Total Bilirubin 0.6 mg/dl (0.2-1.3); Total Protein 6.8 g/dl (6.3-8.2); eGFR 45.48
[2023-10-19 13:00] VITALS: BP 95/59
[2023-10-19 14:00] VITALS: BP 133/56
== END 2023-10-19 15:52 | disposition home or self-care (01) ==
LOC: EMR 11:25
PROVIDERS: EMERGENCY PHYSICIAN Student in an Organized Health Care Education/Training Program
DX: R07.89 Other chest pain (principal); R94.31 Abnormal electrocardiogram [ECG] [EKG]; E78.00 Pure hypercholesterolemia, unspecified; E11.9 Type 2 diabetes mellitus without complications; I25.10 Atherosclerotic heart disease of native coronary artery without angina pectoris; Z90.49 Acquired absence of other specified parts of digestive tract; Z90.710 Acquired absence of both cervix and uterus
CPT/HCPCS: 99283; 71046; 80053; 84484; 85025; 93005

== ENCOUNTER 2024-07-20 09:01 | Emergency (ER) | payer OTHER, SELFPAY ==
[2024-07-20 09:04] VITALS: BP 130/75
[2024-07-20 09:14] LABS: Glucose - Point of Care 206 mg/dl (70-99)
[2024-07-20 09:16] VITALS: BMI 30.7
--- NOTE | 2024-07-20 10:04 | ED.GENMED ---
History of Present Illness
General
Chief Complaint: Fall
Source: records and family
Exam Limitations: dementia
Time Seen by Provider: 07/20/24 09:09
History of Present Illness
History of Present Illness:
83-year-old female with a history of dementia. Unwitnessed fall yesterday. Noted the swelling and ecchymosis to her left wrist. Apparently has a fracture based on outpatient x-ray. Sent for further care of the fracture. Also on Eliquis. No
obvious head injury. Behaving normally per the facility. Patient with no other complaint
Past History
Past History
ED Past Medical History: Cancer, Hypercholesterolemia and NIDDM
ED Past Surgical History: Appendectomy, Gynecological (Hysterectomy), Orthopedic and Other ([facility])
Social History
Living: with family
Review of Systems
Review of Systems
Unable to obtain full review of systems at this time due to: dementia
All Other Systems: Not applicable
Phy Exam
Physical Exam
Physical Exam:
TRAUMA EXAM:
VITAL SIGNS: Vital signs reviewed, cooperative
DISTRESS: No active disease
EYES: Pupils reactive, no orbital trauma
NOSE: No deformity or epistaxis
FACE AND SCALP: No scalp or facial trauma, external canals no blood
NECK: Supple nontender
BACK: Back nontender, pelvis stable to compression
RESPIRATORY: No distress, breath sounds normal, no tender chest wall
CARDIAC: No murmur, pulses equal and strong
ABDOMEN: Soft nontender bowel sounds normal
SKIN: Skin intact no bleeding, color normal
EXTREMITIES: Ecchymosis swelling to the left hand distal forearm with tenderness. No proximal forearm tenderness. Elbow unremarkable. Shoulder unremarkable. All other extremities unremarkable. Pelvis stable. No pain with hip rotation.
NEUROLOGICAL: Alert, oriented x 1, no motor deficits
PSYCH: Mood affect normal
Course
Orders/Labs/Results
Orders:
Orders
07/20/24 09:22
CT Cervical Spine W/o Iv Contr Urgent
Comment:
Reason For Exam: trauma
CT Head W/o Iv Contrast Urgent
Comment:
Reason For Exam: trauma
Cardiac Monitoring- Treatment ONCE
Forearm, Left 2 View [CR Forearm - Left 2 View] Urgent
Comment:
Reason For Exam: trauma
Hand, Left 3 View [CR Hand - Left Min 3 Views] Urgent
Comment:
Reason For Exam: trauma
07/20/24 10:46
Splints/Slings/Crut- Treatment ONCE
Abnormal Lab Results
07/20/24
09:13
POC Glucose 206 H mg/dl
(70-99)
Vital Signs
Initial and Last Documented VS:
Initial Vital Signs
Temp Pulse Resp BP Pulse Ox
98.3 F 78 16 130/75 98
07/20/24 09:04 07/20/24 09:04 07/20/24 09:04 07/20/24 09:04 07/20/24 09:04
Last Documented Vital Signs
Temp Pulse Resp BP Pulse Ox
98.3 F 79 18 123/60 95
07/20/24 09:04 07/20/24 11:44 07/20/24 11:44 07/20/24 11:44 07/20/24 11:44
MDM/Problems Addressed
Differential Diagnosis Includes:
Daughter updated. Unwitnessed fall. Pacemaker interrogated to check for arrhythmia. Low suspicion. Low suspicion for head injury but given unwitnessed and on Eliquis will get CT scan.
*Radiology
Radiology exam reviewed: preliminary read by ED provider (Distal radius fracture) and radiology read reviewed (Negative CT head cervical spine with incidental thyroid nodule)
*Pulse Oximetry
Patient hypoxic: no
*Critical Care Note
Total Time (30-74mins, 75-104mins- exclusive of procedures): Not Applicable
Update Note
Update Note:
Splint and orthopedic follow-up. Follow-up for thyroid nodule. Family will be updated.
Interrogation with some episodes of SVT in May. No issues currently.
ED Attending Note
-
Portions of this chart may have been created with voice recognition software.� Occasional wrong word or��sound alike� substitutions may have occurred due to the inherent limitations of voice recognition software.
Discharge Plan
Departure
Patient Disposition: Home (Routine Discharge)
Date of Disposition: 07/20/24
Time of Disposition: 10:47
Patient with high blood pressure during this ER visit?: Yes
Discharge Problem:
Distal radius fracture left wrist, Incidental thyroid nodule
Instructions: Forearm and Wrist Fractures ED, BLOOD PRESSURE
Prescriptions:
No Action
ferrous sulfate [FeroSul] 325 MG tablet
325 mg PO NOON Qty: 30 0RF
gabapentin 300 MG capsule
300 mg PO BID
donepezil 10 mg Tablet
10 mg PO HS
simvastatin 40 MG tablet
40 mg PO QPM Qty: 30 0RF
sertraline 50 mg tablet
50 mg PO DAILY
metoprolol succinate 50 mg tablet extended release 24 hr
50 mg PO BID
pantoprazole 40 MG tablet,delayed release (DR/EC)
40 mg PO DAILY
furosemide 40 mg Tablet
40 mg PO DAILY Qty: 30 0RF
sennosides [Senna Laxative] 8.6 mg Tablet
17.2 mg PO HS Qty: 0 0RF
acetaminophen 325 mg Tablet
650 mg PO Q4HPRN PRN (Reason: MILD PAIN) Qty: 0 0RF
polyethylene glycol 3350 [HealthyLax] 17 gram Powder In Packet
17 g PO DAILY Qty: 0 0RF
repaglinide 0.5 mg Tablet
0.5 mg PO MEALS Qty: 90 0RF
docusate sodium 100 mg Capsule
100 mg PO BID Qty: 0 0RF
Eliquis 2.5 mg Tablet
2.5 mg PO BID Qty: 60 0RF
dapagliflozin propanediol 10 mg Tablet
10 mg PO DAILY Qty: 30 0RF
Referrals:
Modesto Christensen MD [Active] - Follow up in 2-3 days
UNKNOWN - PT DOES,NOT KNOW [Family Provider] -
Activity Restrictions/Additional Instructions:
There is an incidental thyroid nodule that can be followed up as an outpatient with her primary physician. Likely outpatient ultrasound
Call the orthopedic group first thing Monday morning to be seen early this week
Interventions
Interventions:
*Risk Screen - Suicide Last Done: 07/20/24 09:04
*General Assessment Last Done: 07/20/24 09:04
*Neglect/Abuse Screening Last Done: 07/20/24 09:04
ED- Fall Risk Assessment Last Done: 07/20/24 12:10
*ED COVID-19 Vaccine History Last Done: 07/20/24 09:04
ED-Musculoskeletal Assessment Last Done: 07/20/24 09:16
ED- Neurological Assessment Last Done: 07/20/24 09:16
ED-Skin Assessment Last Done: 07/20/24 09:18
Discharge Date and Time
Print Language: [id number]
[2024-07-20 11:44] VITALS: BP 123/60
== END 2024-07-20 14:53 | disposition home or self-care (01) ==
LOC: EMR 09:01
PROVIDERS: EMERGENCY PHYSICIAN Emergency Medicine
DX: S52.592A Other fractures of lower end of left radius, initial encounter for closed fracture (principal); W19.XXXA Unspecified fall, initial encounter; E04.1 Nontoxic single thyroid nodule; E11.9 Type 2 diabetes mellitus without complications; E78.00 Pure hypercholesterolemia, unspecified; F03.90 Unspecified dementia, unspecified severity, without behavioral disturbance, psychotic disturbance, mood disturbance, and anxiety; Z79.01 Long term (current) use of anticoagulants
CPT/HCPCS: 29125; 99284; 70450; 72125; 73090; 73130; 82962